=== PATIENT | male | born 1930 | race Caucasian/White ===

== ENCOUNTER 2016-09-16 11:55 | Inpatient (IN) | payer OTHER, MEDICARE ==
[~2016-09-16] VITALS: Ht 170.2 cm; Wt 96.2 kg
[~2016-09-16 11:55] MED LIST: ALLOPURINOL300 MG PO; ALPRAZOLAM1 MG PO; ATORVASTATIN CA20 MG PO; CIPRO250 M1 PO; COLCHICINE0.6 MG PO; COUMADIN 5 MG TA5 MG PO; DIAZEPAM5 M1 PO; FLAGYL500 MG PO; ISOSORBIDE MONO60 M1 PO; LASIX20 MG PO; LISINOPRIL10 MG PO; METOPROLOL SUC100 MG PO; NORCO 325 MG-51 TAB PO; PAROXETINE20 MG PO; PREDNISONE 10MG10 M1 PO; PREDNISONE10 MG PO; PREDNISONE5 MG PO; SENOKOT S 50 MG1 TAB PO; WARFARIN SODIUM5 MG PO
--- NOTE | 2016-09-16 12:06 | NUR ---
PT TO ED WITH DAUGHTER FOR C/O ABD PAIN, POOR PO INTAKE, WEIGHT LOSS OVER THE PAST FEW WEEKS. PT WAS SEEN IN ED IN AUGUST AND FOUND TO HAVE DIVERTICULITIS, SENT HOME WITH PO ABX. PT HAS NOT BEEN FEELING WELL SINCE STARTING ABX IN AUGUST. PT TAKEN VIA W/C TO A ROOM.
--- NOTE | 2016-09-16 12:06 | NUR ---
BP 70/40 IN TRIAGE.
--- NOTE | 2016-09-16 12:18 | NUR ---
PT IN ROOM 8. ALERT,ORIENTED. PER DAUGHTER VOMITTING,DIARRHEA. DX OF DIVERTICULITIS RECENTLY. ONGOING ABD PAIN.
--- NOTE | 2016-09-16 12:19 | NUR ---
MONITOR SR. EKG DONE. DR REYES IN.
--- NOTE | 2016-09-16 12:23 | ED GENERAL ADULT ---
History of Present Illness General Chief Complaint: General Adult Stated Complaint: UPSET STOMACH Source: patient, family, old records Exam Limitations: no limitations Vital Signs & Intake/Output Vital Signs & Intake/Output Vital Signs Date Time Temp Pulse Resp B/P Pulse O2 O2 Flow FiO2 Ox Delivery Rate 09/17 1555 98.4 97 18 160/74 92 Room Air 09/17 0940 98.4 83 20 131/62 09/17 0940 98.4 83 20 131/62 09/17 0937 98.4 83 20 131/62 09/17 0821 98.4 83 20 131/62 93 Room Air 09/16 2254 81 140/70 09/16 2254 81 140/70 09/16 2246 98.4 81 18 140/70 95 Room Air 09/16 1950 97.7 83 18 152/80 94 ED Intake and Output 09/17 0000 09/16 1200 Intake Total 2270 Output Total 300 Balance 1970 Intake, IV 2150 Intake, Oral 120 Output, Urine 300 Patient 220 lb Weight Allergies Coded Allergies: NO KNOWN ALLERGIES (12/22/14) Reconcile Medications Allopurinol 300 MG TAB 1 TAB PO DAILY GOUT (Reported) Atorvastatin Calcium (Lipitor) 20 MG TABLET 1 TAB PO DAILY CHOLESTEROL ( Reported) Diazepam 5 MG TABLET 1 TAB PO 4 TIMES/DAY SPASM (Reported) Furosemide (Lasix) 20 MG TABLET 1 TAB PO EOD FLUID (Reported) stop taking now and resume taking on 10/18/14 Isosorbide Mononitrate (Isosorbide Mononitrate ER) 60 MG TAB.ER.24H 1 TAB PO DAILY CHEST PAIN (Reported) Isosorbide Mononitrate (Isosorbide Mononitrate ER) 60 MG TAB.ER.24H 1 TAB PO QPM HEART (Reported) Lisinopril 10 MG TABLET 10 MG PO DAILY HTN (Reported) Metoprolol Succinate 100 MG TAB.ER.24H 50 MG PO DAILY HTN (Reported) PAROXETINE HCL (Paroxetine) 20 MG TABLET 20 MG PO DAILY ANXIETY (Reported) Triage Note: PT TO ED WITH DAUGHTER FOR C/O ABD PAIN, POOR PO INTAKE, WEIGHT LOSS OVER THE PAST FEW WEEKS. PT WAS SEEN IN ED IN AUGUST AND FOUND TO HAVE DIVERTICULITIS, SENT HOME WITH PO ABX. PT HAS NOT BEEN FEELING WELL SINCE STARTING ABX IN AUGUST. PT TAKEN VIA W/C TO A ROOM. Triage Nurses Notes Reviewed? yes Onset: Just prior to arrival Duration: day(s): (FEW) Timing: recent history Injury Environment: home Severity: moderate No Modifying Factors: none Associated Symptoms: POOR APPETITE, LETHARGY, COUGH, PHLEGM, CYANOTIC TOES HPI: This is a very pleasant 86-year-old woman who presents from home with his daughter for chief complaint of poor appetite for the past few days, weakness, lethargy, some diarrhea after a course of antibiotics for diverticulitis. Patient was seen here on August 23 and had a CAT scan done. He reports significant weight loss in the last few days. He denies any vomiting but has been a little bit nauseous. He also reports some productive cough with yellow phlegm for the past 2 days. He denies any fever or chills. He denies feeling short of breath. No recent falls. The daughter states that his extremities of left bluish and his feet have been cold. Past History Travel History Traveled to [place] past 21 day No Medical History Any Pertinent Medical History? see below for history Neurological: TIA EENT: NONE Cardiovascular: WA, TRIPLE BYPASS, TIA CHF, CIRCUMFLEX CLOGGED ARTERY, HTN Respiratory: NONE Gastrointestinal: diverticulitis Hepatic: NONE Renal: NONE Musculoskeletal: osteoarthritis Psychiatric: NONE Endocrine: NONE Blood Disorders: NONE Cancer(s): NONE DAIRY CHEMIST/Reproductive: NONE History of MRSA: No History of VRE: No History of CDIFF: No Surgical History Surgical History: CABG (1985 X 3) Psychosocial History Who do you live with Patient/Self Services at Home None What is your primary language [place]alander Tobacco Use: Quit >30 days ago ETOH Use: denies use Illicit Drug Use: denies illicit drug use Family History Family History, If Any: FATHER FH: CAD (coronary artery disease) Hx Contributory? No Review of Systems Review of Systems Constitutional: Reports: malaise, weakness. Denies: chills, fever. EENTM: Reports: no symptoms. Respiratory: Reports: cough, sputum production (YELLOW). Denies: orthopnea, short of breath. Cardiovascular: Denies: chest pain, palpitations. GI: Reports: constipation. Denies: abdominal pain. Genitourinary: Denies: discharge, dysuria. Musculoskeletal: Reports: no symptoms. Skin: Reports: no symptoms. Neurological/Psychological: Denies: confusion. Hematologic/Endocrine: Denies: bruising, bleeding, polyuria, polydipsia. Immunologic/Allergic: Denies: splenectomy. All Other Systems: Reviewed and Negative Physical Exam Physical Exam General Appearance: well developed/nourished, alert, awake, mild distress Head: atraumatic, normal appearance Eyes: Bilateral: normal appearance, PERRL, EOMI, pale conjunctivae. Ears, Nose, Throat: normal pharynx, normal ENT inspection, hearing grossly normal Neck: normal inspection, supple, full range of motion Respiratory: normal breath sounds, chest non-tender, no respiratory distress Cardiovascular: regular rate/rhythm Peripheral Pulses: 1+ radial (R), 1+ radial (L) Gastrointestinal: normal bowel sounds, soft, non-tender Back: normal inspection, normal range of motion Extremities: normal inspection, normal range of motion, pedal edema (TRACE BILATERALLY) Neurologic/Psych: no motor/sensory deficits, awake, alert, oriented x 3 Skin: cyanosis (TOES), pallor Core Measures ACS in differential dx? No CVA/TIA Diagnosis: No Severe Sepsis Present: Yes BC x2: Yes Lactic Acid x2: Yes IV ABX Broad Spectrum: Yes NS/LR Started: Yes Septic Shock Present: Yes Progress Differential Diagnoses I considered the following diagnoses in my evaluation of the patient: [RENAL FAILURE, DEHYDRATION, STAS, PNEUMONIA, SEPSIS, BACTEREMIA, C.DIFF] Plan of Care: Orders Procedure Date/time Status Heart Healthy Diet 09/17 B Active LOWER RESPIRATORY CULTURE 09/17 1456 Active MAGNESIUM 09/17 0600 Complete CBC WITHOUT DIFFERENTIAL 09/17 0600 Complete BASIC ELECTROLYTES PLUS BUN&CR 09/17 0600 Complete TROPONIN LEVEL 09/17 0000 Complete Therapeutic Exercise 09/17 UNK Complete PT Eval 09/17 UNK Complete Gait Training 09/17 UNK Complete PT Evaluate & Treat 09/16 2141 Active Saline Lock 09/16 2140 Active Pathway - chart 09/16 2140 Active House Staff 09/16 214 Active EKG 09/16 2140 Active Code Status 09/16 2140 Active Teach/Educate 09/16 1956 Active Nutritional Intake, Monitor 09/16 1956 Active Isolation 09/16 1956 Active Intake & Output 09/16 1956 Active Patient Care Conference 09/16 1956 Active Activity/Ambulation 09/16 1956 Active Patient Data 09/16 1713 Active Code Status 09/16 1706 Complete Admit to inpatient 09/16 1703 Active Vital Signs 09/16 1703 Active Intake & Output 09/16 1355 Active VTE Mechanical Prophylaxis 09/16 UNK Active Vital Signs 09/16 UNK Complete Intake & Output 09/16 UNK Complete Current Medications Sig/Sherrill Start time Last Medication Dose Stop Time Status Admin Furosemide 20 MG Q48 09/19 1000 AC (Lasix) Atorvastatin Calcium 20 MG 1700 09/17 1700 AC (Lipitor) Azithromycin 500 MG ONCE ONE 09/16 1700 CAN (Zithromax) 09/16 1759 Sodium Chloride 250 ML (Normal Saline 0.9%) Ceftriaxone Sodium 1,000 MG ONCE ONE 09/16 1700 CAN (Rocephin) 09/16 1701 Laboratory Tests 09/17/16 0600: Magnesium Cancelled 09/17/16 0600: Anion Gap 12, Estimated GFR > 60, BUN/Creatinine Ratio 10.0, Magnesium 1.8, CBC w Diff MAN DIFF ORDERED, RBC 3.12 L, MCV 91.7, MCH 30.7, RDW 15.1 H, MPV 9.9, Gran % 27.9 L, Lymphocytes % 30.5, Monocytes % 33.7 H, Eosinophils % 7.2 H, Basophils % 0.7, Absolute Granulocytes 1.2 L, Segmented Neutrophils 31 L, Absolute Lymphocytes 1.3, Lymphocytes 31, Monocytes 27 H, Absolute Monocytes 1.4 H, Eosinophils 8 H, Absolute Eosinophils 0.3, Absolute Basophils 0, Metamyelocytes 2 H, Myelocytes 1 H, Platelet Estimate VERIFIED BY SMEAR, Normocytic RBCs VERIFIED, Normochromic RBCs VERIFIED, PUBS MCHC 33.5 09/17/16 0020: Troponin I 0.02 09/16/16 1803: Urinalysis LIGHT H, Urine Color YEL, Urine Clarity HAZY H, Urine pH 6.0, Ur Specific [place] <= 1.005, Urine Protein NEG, Urine Ketones NEG, Urine Nitrite NEG, Urine Bilirubin NEG, Urine Urobilinogen 1.0, Ur Leukocyte Esterase NEG, Ur Microscopic SEDIMENT EXAMINED, Urine RBC FEW H, Urine WBC RARE, Urine Hemoglobin TRACE-INTACT H, Urine Glucose NEG Microbiology 09/17 UNK LOWER RESP: Respiratory Culture - RECD 09/17 UNK LOWER RESP: Gram Stain - RECD 09/16 2145 LOWER RESP: Respiratory Culture - CAN Cancelled: NO SPUTUM COLLLECTED FOR MICRO DEPT 09/16 2145 LOWER RESP: Gram Stain - CAN Cancelled: NO SPUTUM COLLLECTED FOR MICRO DEPT EKG, TELE MONITOR, NS BOLUS X 2 ORDERED, LABS, CULTUERS, LACTIC ACID. CXR ORDERED. IMPROVED PRESSURE AFTER FIRST LITRE. CT ABD/PELVIS PENDING. (AMY THOMAS,ROSALBA) Diagnostic Imaging: Viewed by Me: Radiology Read, CT Scan. Discussed w/RAD: Radiology Read, CT Scan. Radiology Impression: PATIENT: YARELI SONG PRESENT AGE: 86 PATIENT ACCOUNT NO: [id number] : 31 LOCATION: [facility] ORDERING PHYSICIAN: ROSALBA REYES MD SERVICE DATE: 09/16/16 EXAM TYPE: CAT - CT ABD & PELVIS W IV CONTRAST EXAMINATION: CT ABDOMEN AND PELVIS WITH CONTRAST CLINICAL INFORMATION: Diarrhea. Abdominal pain. Recent antibiotic treatment for diverticulitis. COMPARISON: CT abdomen and pelvis without contrast 08/23/2016. TECHNIQUE: Multidetector volumetric imaging was performed of the abdomen and pelvis before and after the IV administration of 95 mL of Optiray 320 intravenous contrast. Sagittal and coronal reformatted images were obtained on the technologist's workstation. DLP: 652 mGy-cm. FINDINGS: LUNG BASES: Bibasilar infiltrates. No pleural or pericardial effusions. Scattered coronary artery calcifications. LIVER, GALLBLADDER, AND BILIARY TREE: The liver is normal in size, shape, and attenuation. No focal hepatic lesion or biliary ductal dilatation is present. The gallbladder is unremarkable with no evidence of radiopaque gallstones, gallbladder wall thickening, or obvious pericholecystic inflammatory changes. PANCREAS: Unremarkable. SPLEEN: Unremarkable. 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 The right adrenal gland appears unremarkable. KIDNEYS AND URETERS: Evaluation of the bilateral kidneys and renal collecting systems is again notable for multiple right-sided simple renal cortical cysts, visualized measuring up to 3.4 x 3.6 cm within the lower pole of the right kidney. No renal or ureteral stones are identified and there is no hydroureteronephrosis of either kidney or renal collecting system. There is mild bilateral perinephric stranding. BLADDER: Unremarkable. GASTROINTESTINAL TRACT: Evaluation of the gastrointestinal system is again notable for scattered colonic diverticulosis, most significant along the descending and rectosigmoid colon. In comparison to the prior examination, there has been interval resolution of acute inflammatory changes along the cecum, corresponding to the patient's recent sigmoid diverticulitis. 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 There is no visible twisting of the mesentery to suggest obstruction. Abdominal and pelvic bowel loops are normal in caliber, without findings indicative of obstruction or ileus. No organizing intra-abdominal or pelvic fluid collections are identified and there is no free intraperitoneal air. ABDOMINAL WALL: No significant hernia is appreciated. LYMPH NODES: No significant abdominal or pelvic adenopathy. VASCULAR: Extensive atherosclerosis of the abdominal aorta and its branching vessels, without aneurysmal dilatation. The abdominal vasculature appears to be grossly patent. PELVIC VISCERA: Unremarkable. OSSEOUS STRUCTURES: No acute osseous abnormality. Demineralization of the visualized bones. Moderate to severe multilevel degenerative changes of the imaged thoracolumbar spine. IMPRESSION: 1. No acute findings within the abdomen or pelvis to explain patient symptomatology. Interval resolution of previously noted acute sigmoid diverticulitis. 2. 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 3. Patchy infiltrates within the bilateral lung bases. This finding is nonspecific and could reflect atelectasis although superimposed infection cannot be excluded in the upper clinical setting. DICTATED BY: ROBBIE DE LEÓN MD DATE/TIME DICTATED:09/16/161613 CASH POSTING SPECIALIST:BERT DATE/TIME TRANSCRIBED:09/16/161613 CONFIDENTIAL, DO NOT COPY WITHOUT APPROPRIATE AUTHORIZATION. <Electronically signed in Other Vendor System> SIGNED BY: ROBBIE DE LEÓN MD 09/16/168 CXR Impression: PATIENT: YARELI SONG PRESENT AGE: 86 PATIENT ACCOUNT NO: [id number] : 31 LOCATION: [facility] ORDERING PHYSICIAN: ROSALBA REYES MD SERVICE DATE: 09/16/16 EXAM TYPE: RAD - XRY -PORTABLE CHEST XRAY EXAMINATION: XR PORTABLE CHEST CLINICAL INFORMATION: Cough. Reported yellow sputum. COMPARISON: Chest radiograph done on 01/09/2015. TECHNIQUE: AP erect portable 75 degrees view of the chest. FINDINGS: Subtle airspace opacity is noted at left lung base, appear new since prior study. Subtle blunting of the left lateral CP angle is also noted, may represent trace effusion, new since prior study. The remainder of the lung isabel bilaterally appear clear. The cardiomediastinal silhouette is mildly enlarged, unchanged. Postop changes of sternotomy is noted, unchanged. The visualized upper abdomen is unremarkable. IMPRESSION: Compared to most recent prior available chest radiograph done on 01/09/2015, interval development of subtle airspace opacity is noted at left lung base consistent with infiltrate, atelectasis or combination thereof, with minimal blunting of left lateral CP angle, presumably represent trace amount of ipsilateral pleural effusion. No other significant change. DICTATED BY: DARYA VERAS MD DATE/TIME DICTATED:09/16/161328 CASH POSTING SPECIALIST:BERT DATE/TIME TRANSCRIBED:09/16/161328 CONFIDENTIAL, DO NOT COPY WITHOUT APPROPRIATE AUTHORIZATION. <Electronically signed in Other Vendor System> SIGNED BY: DARYA VERAS MD 09/16/16 1335 Initial ED EKG: NSR, nonspecific ST T wave chg Prior EKG: unchanged ED Sepsis Exam Date of Focused Sepsis Exam: 09/16/16 Time of Focused Sepsis Exam: 1225 Sepsis Cardiac Exam: Tachycardia Sepsis Resp Exam: DIMINISHED BREATH SOUNDS Sepsis Cap Refill Exam: >2 sec Sepsis Peripheral Pulse Exam: Weak Sepsis Peripheral Pulse Location: Radial Sepsis Skin Color Exam: Cyanotic, Pale Skin Temp/Moisture Exam: Cool/Dry Departure Departure Time of Disposition: 1652 Disposition: STILL A PATIENT Condition: Stable Clinical Impression Primary Impression: Hyponatremia Secondary Impressions: Hypotension, Pneumonia Referrals: SALLY BERRIOS MD (PCP/Family) Departure Forms: Customer Survey General Discharge Information Admission Note Spoke With: STEF TROY MD Documentation of Exam: Documentation of any treatments & extenuating circumstances including Concerns Regarding Discharge (functional status, medication knowledge or non-compliance, living conditions, etc.) that warrant an admission rather than observation: [IV ABX, FLUID RESUSSCITATION, F/U CULTURES, MONITOR I/O, F/U LACTIC ACID] Critical Care Note Critical Care Note Critical Care Time: 75-104 min
--- NOTE | 2016-09-16 12:40 | NUR ---
BLOOD DRAWN AND SENT TO THE LAB (SST,LAV,BLUE,[facility],PINK)
[2016-09-16 12:50] LABS: ABSOLUTE BASOPHIL COUNT 0 /CUMM (0.0-0.2); ABSOLUTE EOSINOPHIL COUNT 0.4 /CUMM (0.0-0.7); ABSOLUTE GRANULOCYTE CT 1.8 /CUMM (1.4-6.5); ABSOLUTE LYMPH COUNT 1.8 /CUMM (1.2-3.4); ABSOLUTE MONOCYTE COUNT 1.5 /CUMM (0.10-0.60); BASOPHIL % 0.6 % (0.0-2.0); HEMATOCRIT 31.3 % (42-52); MEAN CORPUSCULAR HGB 30.2 PG (27.0-31.0); MEAN CORPUSCULAR VOLUME 91.3 FL (80.0-94.0); MEAN PLATELET VOLUME 9.9 FL (7.4-10.4); PLATELET COUNT 192 /CUMM (130-400); RBC DISTRIBUTION WIDTH 15.7 % (11.5-14.5); RED BLOOD CELL CT 3.42 /CUMM (4.70-6.10); WHITE BLOOD CELL COUNT 5.6 /CUMM (4.8-10.8)
[2016-09-16 13:02] LABS: GRANULOCYTE % 32.1 % (42.2-75.2)
[2016-09-16 13:09] LABS: PT 14.8 SEC (9.4-12.5); PTT 32 SEC (25-37)
--- NOTE | 2016-09-16 13:19 | NUR ---
CRITICAL TEST RESULTS [id number] YARELI SONG 86 M TESTS AND RESULTS: LACTIC ACID 2.5 Results received and read back by: CANDY BRUCE Results received date and time: 09/16/16 1320 The following provider was notified of the results, and read the results back: DR REYES [id number] Notified date and time: 09/16/16 at 1322 REPORTED BY WM IN LAB
--- NOTE | 2016-09-16 13:35 | RADIOLOGY REPORT ---
EXAMINATION: XR PORTABLE CHEST CLINICAL INFORMATION: Cough. Reported yellow sputum. COMPARISON: Chest radiograph done on 01/09/2015. TECHNIQUE: AP erect portable 75 degrees view of the chest. FINDINGS: Subtle airspace opacity is noted at left lung base, appear new since prior study. Subtle blunting of the left lateral CP angle is also noted, may represent trace effusion, new since prior study. The remainder of the lung isabel bilaterally appear clear. The cardiomediastinal silhouette is mildly enlarged, unchanged. Postop changes of sternotomy is noted, unchanged. The visualized upper abdomen is unremarkable. IMPRESSION: Compared to most recent prior available chest radiograph done on 01/09/2015, interval development of subtle airspace opacity is noted at left lung base consistent with infiltrate, atelectasis or combination thereof, with minimal blunting of left lateral CP angle, presumably represent trace amount of ipsilateral pleural effusion. No other significant change.
[2016-09-16] MEDS ORDERED: ISOSORBIDE MONO60 M1 PO (14:11)
[2016-09-16] MEDS ORDERED: HYDROCODON-ACE1 EAC3 PO (14:14)
--- NOTE | 2016-09-16 15:48 | NUR ---
TO CT VIA STRETCHER AFTER IV EST
--- NOTE | 2016-09-16 15:50 | NUR ---
IV EST #20 TO RFA. BUTLER TOP AND BOTH SET OF CULTURES SENT.
--- NOTE | 2016-09-16 15:51 | NUR ---
PT TO CAT SCAN VIA STRETCHER.
--- NOTE | 2016-09-16 16:28 | CT SCAN REPORT ---
EXAMINATION: CT ABDOMEN AND PELVIS WITH CONTRAST CLINICAL INFORMATION: Diarrhea. Abdominal pain. Recent antibiotic treatment for diverticulitis. COMPARISON: CT abdomen and pelvis without contrast 08/23/2016. TECHNIQUE: Multidetector volumetric imaging was performed of the abdomen and pelvis before and after the IV administration of 95 mL of Optiray 320 intravenous contrast. Sagittal and coronal reformatted images were obtained on the technologist's workstation. DLP: 652 mGy-cm. FINDINGS: LUNG BASES: Bibasilar infiltrates. No pleural or pericardial effusions. Scattered coronary artery calcifications. LIVER, GALLBLADDER, AND BILIARY TREE: The liver is normal in size, shape, and attenuation. No focal hepatic lesion or biliary ductal dilatation is present. The gallbladder is unremarkable with no evidence of radiopaque gallstones, gallbladder wall thickening, or obvious pericholecystic inflammatory changes. PANCREAS: Unremarkable. SPLEEN: Unremarkable. 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 The right adrenal gland appears unremarkable. KIDNEYS AND URETERS: Evaluation of the bilateral kidneys and renal collecting systems is again notable for multiple right-sided simple renal cortical cysts, visualized measuring up to 3.4 x 3.6 cm within the lower pole of the right kidney. No renal or ureteral stones are identified and there is no hydroureteronephrosis of either kidney or renal collecting system. There is mild bilateral perinephric stranding. BLADDER: Unremarkable. GASTROINTESTINAL TRACT: Evaluation of the gastrointestinal system is again notable for scattered colonic diverticulosis, most significant along the descending and rectosigmoid colon. In comparison to the prior examination, there has been interval resolution of acute inflammatory changes along the cecum, corresponding to the patient's recent sigmoid diverticulitis. 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 There is no visible twisting of the mesentery to suggest obstruction. Abdominal and pelvic bowel loops are normal in caliber, without findings indicative of obstruction or ileus. No organizing intra-abdominal or pelvic fluid collections are identified and there is no free intraperitoneal air. ABDOMINAL WALL: No significant hernia is appreciated. LYMPH NODES: No significant abdominal or pelvic adenopathy. VASCULAR: Extensive atherosclerosis of the abdominal aorta and its branching vessels, without aneurysmal dilatation. The abdominal vasculature appears to be grossly patent. PELVIC VISCERA: Unremarkable. OSSEOUS STRUCTURES: No acute osseous abnormality. Demineralization of the visualized bones. Moderate to severe multilevel degenerative changes of the imaged thoracolumbar spine. IMPRESSION: 1. No acute findings within the abdomen or pelvis to explain patient symptomatology. Interval resolution of previously noted acute sigmoid diverticulitis. 2. 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 3. Patchy infiltrates within the bilateral lung bases. This finding is nonspecific and could reflect atelectasis although superimposed infection cannot be excluded in the upper clinical setting.
--- NOTE | 2016-09-16 16:49 | NUR ---
UNABLE TO PROVIDE URINE SAMPLE AT THIS TIME.
--- NOTE | 2016-09-16 17:15 | NUR ---
RE-EVAL BY ER TBA BLADDER SCAN DONE = [id number] PATIENT STATES STILL CAN'T VOID DOES NOT WANT STRAIGHT CATH AWaRE
--- NOTE | 2016-09-16 18:00 | NUR ---
pt has bed assignment 180-2. rn notified.
--- NOTE | 2016-09-16 18:05 | NUR ---
URINE TRIO SENT TO THE LAB
--- NOTE | 2016-09-16 19:01 | NUR ---
REPORT GIVEN TO FLOOR
--- NOTE | 2016-09-16 19:27 | NUR ---
PATIENT REMAINS ALERT ORIENTED MONITOR NSR SKIN WARM DRY TEMP 97.8 HR 80 RR 20 PULSE OX 97% R/A B/P 144/82 VANCOMYCIN INFUSING
[2016-09-16 19:50] VITALS: BP 152/80
--- NOTE | 2016-09-16 22:00 | NUR ---
PT ARRIVED FROM ER VIA STRETCHER. ORIENTED TO ROOM CALL FERRELL AND STAFF. VSS. ALERT AND ORIENTED X 3, FORGETFUL. SKIN CDI. SLIGHT SWELLING AND REDNESS ON RIGHT HAND, IV PULLED. 2ND ACCESS IN RFA, NS ORDERED AT 75 ML/HR. VANCO FINISHED INFUSING. EKG ORDERED AND OBTAINED, MD BRAND REVIEWED EKG. NNO.
[2016-09-16 22:46] VITALS: BP 140/70
--- NOTE | 2016-09-17 00:44 | History & Physical ---
DORIS JIM 09/17/16 0043: General Information and HPI MD Statement: I have seen and personally examined YARELI SONG and documented this H& P. The patient is a 86 year old M who presented with a patient stated chief complaint of []. Source of Information: patient, old records Exam Limitations: no limitations History of Present Illness: This is a 86-year-old male with past medical history of TIA, CABG, congestive heart failure gout, osteoarthritis, bilateral foot neuroma. Presented to the emergency department due to poor appetite for the past few days, weakness, lethargy and diarrhea. According to his daughter these symptoms started after he was started on antibiotic for his sigmoid diverticulitis that was diagnosed on August 2016 in the emergency department. She stated that since he was started on antibiotic is nausea, diarrhea and low appetite that is associated with around 20 pound weight loss and decreased ambulation. His daughter stated that his primary care doctor hold his Flagyl and the patient continue total course of ciprofloxacin. Patient also reports productive cough of yellowish sputum, he deny any fever, chills him a difficulty in breathing. Patient deny any abdominal pain, constipation, vomiting, headaches, dizziness, lightheaded, hematuria, dysuria,. In ED patient received IV vancomycin and ceftazidime. His labs showed hyponatremia, hypomagnesemia , initial lactic acid 2.[address] scan of the abdomen and pelvis showed bilateral basal lung infiltrate that could be atelectasis versus pneumonia. Previous admission to the hospital 2014 due to fall and fracture. Allergies/Medications Allergies: Coded Allergies: NO KNOWN ALLERGIES (12/22/14) Home Med list Allopurinol 300 MG TAB 1 TAB PO DAILY GOUT (Reported) Atorvastatin Calcium (Lipitor) 20 MG TABLET 1 TAB PO DAILY CHOLESTEROL ( Reported) Diazepam 5 MG TABLET 1 TAB PO 4 TIMES/DAY SPASM (Reported) Furosemide (Lasix) 20 MG TABLET 1 TAB PO EOD FLUID (Reported) stop taking now and resume taking on 10/18/14 Isosorbide Mononitrate (Isosorbide Mononitrate ER) 60 MG TAB.ER.24H 1 TAB PO DAILY CHEST PAIN (Reported) Isosorbide Mononitrate (Isosorbide Mononitrate ER) 60 MG TAB.ER.24H 1 TAB PO QPM HEART (Reported) Lisinopril 10 MG TABLET 10 MG PO DAILY HTN (Reported) Metoprolol Succinate 100 MG TAB.ER.24H 50 MG PO DAILY HTN (Reported) PAROXETINE HCL (Paroxetine) 20 MG TABLET 20 MG PO DAILY ANXIETY (Reported) Past History Travel History Traveled to [place] past 21 day No Medical History Neurological: TIA EENT: NONE Cardiovascular: MA, TRIPLE BYPASS, TIA CHF, CIRCUMFLEX CLOGGED ARTERY, HTN Respiratory: NONE Gastrointestinal: diverticulitis Hepatic: NONE Renal: NONE Musculoskeletal: osteoarthritis Psychiatric: NONE Endocrine: NONE Blood Disorders: NONE Cancer(s): NONE CAR 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 Cardiovascular: Reports: see HPI. Respiratory: Reports: see HPI. GI: Reports: see HPI. Genitourinary: Reports: see HPI. Exam & Diagnostic Data Last 24 Hrs of Vital Signs/I&O Vital Signs Date Time Temp Pulse Resp B/P Pulse O2 O2 Flow FiO2 Ox Delivery Rate 09/16 2254 81 140/70 09/16 2254 81 140/70 09/16 2246 98.4 81 18 140/70 95 Room Air 09/16 1950 97.7 83 18 152/80 94 09/16 1635 97.8 84 159/75 98 09/16 1424 98.0 76 20 148/70 98 Room Air 09/16 1203 97.6 83 20 70/41 95 Room Air Intake & Output 09/17 0800 09/17 0000 09/16 1600 Intake Total 270 2000 Output Total 300 Balance -30 2000 Intake, IV 150 2000 Intake, Oral 120 Output, Urine 300 Patient 220 lb 220 lb Weight Physical Exam General Appearance Alert, Oriented X3, Cooperative HEENT PERRLA, EOMI Neck Supple Cardiovascular Regular Rate, Normal S1, Normal S2 Lungs Normal Air Movement Abdomen Normal Bowel Sounds, Soft, No Tenderness Extremities No Edema, Normal Pulses Last 24 Hrs of Labs/Onesimo: Laboratory Tests 09/17/16 0020: Troponin I 0.02 09/16/16 1803: Urinalysis LIGHT H, Urine Color YEL, Urine Clarity HAZY H, Urine pH 6.0, Ur Specific [place] <= 1.005, Urine Protein NEG, Urine Ketones NEG, Urine Nitrite NEG, Urine Bilirubin NEG, Urine Urobilinogen 1.0, Ur Leukocyte Esterase NEG, Ur Microscopic SEDIMENT EXAMINED, Urine RBC FEW H, Urine WBC RARE, Urine Hemoglobin TRACE-INTACT H, Urine Glucose NEG 09/16/16 1527: Lactic Acid 1.1 09/16/16 1237: Anion Gap 14, Estimated GFR > 60, BUN/Creatinine Ratio 9.1, Glucose 104 H, Lactic Acid 2.5 H, Calcium 8.5, Magnesium 1.5 L, Total Bilirubin 1.6 H, AST 13 L, ALT 22, Alkaline Phosphatase 81, Troponin I 0.03, Total Protein 5.9 L, Albumin 3.2 L, Globulin 2.7, Albumin/Globulin Ratio 1.2, Lipase 31, PT 14.8 H, INR 1.41 H, APTT 32 09/16/16 1222: CBC w Diff MAN DIFF ORDERED, RBC 3.42 L, MCV 91.3, MCH 30.2, RDW 15.7 H, MPV 9.9, Gran % 32.1 L, Lymphocytes % 31.5, Monocytes % 27.8 H, Eosinophils % 8.0 H, Basophils % 0.6, Absolute Granulocytes 1.8, Segmented Neutrophils 39 L, Band Neutrophils 1, Absolute Lymphocytes 1.8, Lymphocytes 33, Monocytes 20 H, Absolute Monocytes 1.5 H, Eosinophils 7 H, Absolute Eosinophils 0.4, Absolute Basophils 0, Platelet Estimate ADEQUATE, Hypochromic-Microcytic 1+, Poikilocytosis 1+, Anisocytosis 1+, PUBS MCHC 33.0 Microbiology 09/16 2145 LOWER RESP: Respiratory Culture - ORD 09/16 2145 LOWER RESP: Gram Stain - ORD 09/16 1540 BLOOD: Blood Culture - RECD 09/16 152 BLOOD: Blood Culture - RECD 09/16 1237 STOOL: Clostridium difficile Toxin A & B - RECD Diagnostic Data CXR Results EXAMINATION: XR PORTABLE CHEST CLINICAL INFORMATION: Cough. Reported yellow sputum. COMPARISON: Chest radiograph done on 01/09/2015. TECHNIQUE: AP erect portable 75 degrees view of the chest. FINDINGS: Subtle airspace opacity is noted at left lung base, appear new since prior study. Subtle blunting of the left lateral CP angle is also noted, may represent trace effusion, new since prior study. The remainder of the lung isabel bilaterally appear clear. The cardiomediastinal silhouette is mildly enlarged, unchanged. Postop changes of sternotomy is noted, unchanged. The visualized upper abdomen is unremarkable. IMPRESSION: Compared to most recent prior available chest radiograph done on 01/09/2015, interval development of subtle airspace opacity is noted at left lung base consistent with infiltrate, atelectasis or combination thereof, with minimal blunting of left lateral CP angle, presumably represent trace amount of ipsilateral pleural effusion. No other significant change. Other Results EXAM TYPE: CAT - CT ABD & PELVIS W IV CONTRAST EXAMINATION: CT ABDOMEN AND PELVIS WITH CONTRAST CLINICAL INFORMATION: Diarrhea. Abdominal pain. Recent antibiotic treatment for diverticulitis. COMPARISON: CT abdomen and pelvis without contrast 08/23/2016. TECHNIQUE: Multidetector volumetric imaging was performed of the abdomen and pelvis before and after the IV administration of 95 mL of Optiray 320 intravenous contrast. Sagittal and coronal reformatted images were obtained on the technologist's workstation. DLP: 652 mGy-cm. FINDINGS: LUNG BASES: Bibasilar infiltrates. No pleural or pericardial effusions. Scattered coronary artery calcifications. LIVER, GALLBLADDER, AND BILIARY TREE: The liver is normal in size, shape, and attenuation. No focal hepatic lesion or biliary ductal dilatation is present. The gallbladder is unremarkable with no evidence of radiopaque gallstones, gallbladder wall thickening, or obvious pericholecystic inflammatory changes. PANCREAS: Unremarkable. SPLEEN: Unremarkable. 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 The right adrenal gland appears unremarkable. KIDNEYS AND URETERS: Evaluation of the bilateral kidneys and renal collecting systems is again notable for multiple right-sided simple renal cortical cysts, visualized measuring up to 3.4 x 3.6 cm within the lower pole of the right kidney. No renal or ureteral stones are identified and there is no hydroureteronephrosis of either kidney or renal collecting system. There is mild bilateral perinephric stranding. BLADDER: Unremarkable. GASTROINTESTINAL TRACT: Evaluation of the gastrointestinal system is again notable for scattered colonic diverticulosis, most significant along the descending and rectosigmoid colon. In comparison to the prior examination, there has been interval resolution of acute inflammatory changes along the cecum, corresponding to the patient's recent sigmoid diverticulitis. 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 There is no visible twisting of the mesentery to suggest obstruction. Abdominal and pelvic bowel loops are normal in caliber, without findings indicative of obstruction or ileus. No organizing intra-abdominal or pelvic fluid collections are identified and there is no free intraperitoneal air. ABDOMINAL WALL: No significant hernia is appreciated. LYMPH NODES: No significant abdominal or pelvic adenopathy. VASCULAR: Extensive atherosclerosis of the abdominal aorta and its branching vessels, without aneurysmal dilatation. The abdominal vasculature appears to be grossly patent. PELVIC VISCERA: Unremarkable. OSSEOUS STRUCTURES: No acute osseous abnormality. Demineralization of the visualized bones. Moderate to severe multilevel degenerative changes of the imaged thoracolumbar spine. IMPRESSION: 1. No acute findings within the abdomen or pelvis to explain patient symptomatology. Interval resolution of previously noted acute sigmoid diverticulitis. 2. 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 3. Patchy infiltrates within the bilateral lung bases. This finding is nonspecific and could reflect atelectasis although superimposed infection cannot be excluded in the upper clinical setting. Assessment/Plan Assessment: This is a 86-year-old male with past medical history of TIA, CABG, congestive heart failure gout, osteoarthritis, bilateral foot neuroma. Presented to the emergency department due to poor appetite for the past few days, weakness, lethargy and diarrhea. Problem list: -Generalized weakness -Diarrhea, weight loss, that could be secondary to C. difficile infection -Questionable pneumonia -Hyponatremia, hypomagnesemia secondary to diarrhea -Lactic acidosis -History of diverticulitis Plan: -Admit patient to general medicine floor -Vitals every shift -1 set of troponin and EKG -Hold off antibiotic for now -Follow C. difficile and blood culture -Repleat electrolytes accordingly -Continue IV fluid hydration -Continue his home medication -Physical therapy consultation -Repeat CBC and basic panel electrolyte in the morning -Pain pathway -Heart healthy diet -DVT prophylaxis subcutaneous heparin -Full code As Ranked By This Provider Problem List: 1. Hypotension 2. Hyponatremia Core Measures/Miscellaneous Acute Coronary Syndrome ACS Diagnosis: No Cerebrovascular Accident CVA/TIA Diagnosis: No Congestive Heart Failure CHF Diagnosis: No Venous Thromboembolism VTE Risk Factors: Acute medical illness, Age > 40, Immobility, paresis, Obesity VTE Prophylaxis Ordered Inpt: Mech & Pharm No Mech VTE prophylaxis d/t: No contraindications No VTE Pharm Prophylaxis d/t: No contraindications VTE Diagnosis: No VTE Type: NONE VTE Confirmed by (Test): NONE Severe Sepsis Severe Sepsis Present: No Septic Shock Septic Shock Present: No Miscellaneous Documentation Attending Case Discussed With: SYDNI THOMAS,FINCH [facility] Patient sees these Specialists GM Level of Patient Care: General Medicine ABBIE THOMAS, [facility] 09/17/16 0643: Attending MD Review Statement Attending Statement Attending MD Statement: examined this patient, discuss w/resident/PA/RADIOLOGY TRANSCRIPTIONIST, agreed w/resident/PA/RADIOLOGY TRANSCRIPTIONIST, discussed with family Attending Assessment/Plan: 86 yo M with h/o CAD s/p CABG, TIA, CHF, rosas's neuroma, recently treated with Cipro/flagyl for sigmoid diverticulitis (Aug 2015) pw weakness, poor PO intake, lethargy, weight loss and persistent diarrhea (last episode 2 days ago). He reports occasional productive cough, no fever or dyspnea. Initially hypotensive (70/41) in ER, responded to fluids. Vitals otherwise stable. No leukocytosis but has eosinophilia. Mag 1.5, elevated lactic acid. UA neg. CT abd/pelvis, nothing acute in abdomen, patchy infiltrates b/l lung bases ?atelectasis. ER gave Ceftaz /vanco for pneumonia. EKG showed few ST-T changes, troponin is negative. Lethargy, weakness 2/2 dehydration and poor PO intake, which is also attributing to his low BP. IV hydration. Given persistent diarrhea, I am checking for Cdiff. Panculture. He is not hypoxic and not febrile so holding off on abx for possible pneumonia unless he spikes fever, please initiate abx. Repleting electrolytes. Needs PT. DVT ppx Hep SC. Full code.
--- NOTE | 2016-09-17 06:35 | Admission Certification ---
Admission Certification Certification Statement - As attending physician, I certify that at the time of - admission, based on clinical presentation, severity of - symptoms, need for further diagnostic testing and - therapeutic interventions, and risk of adverse outcomes - without in-hospital treatment, in my clinical assessment, - this patient requires an acute hospital stay for a minimum - of two nights or longer. I have also considered psychsocial - factors such as support system, advanced age, financial - issues, cognitive issues, and failed out-patient treatments, - past re-admission history, safety of patient, and lack of - compliance as applicable. Specific rationale supporting this admission is: Weakness, lethargy, rule out Cdiff, possible pneumonia needs further evaluation and treatment.
--- NOTE | 2016-09-17 07:47 | PN- Housestaff ---
THUY SOLIS 09/17/16 0747: Subjective Follow-up For: -Lethargy,weakness -diarrhea s/p recent ax treatment Complaints: no complaints Subjective: I have seen and examined the patient today morning, he is lying comfortably in the bed, vitals stable, he does look a little dry, he hasn't had any episodes of diarrhea after admission in the emergency department as well as in last 2 days. He does feel lethargic and weak and states that it does not have any appetite and has not been eating anything since last 15-20 days as he does not feel like especially after getting treated with antibiotics for diverticulitis Review of Systems Constitutional: Reports: malaise, weakness. Denies: chills, diaphoresis, fever. EENTM: Denies: blurred vision, double vision, visual changes, eye pain, eye drainage. Cardiovascular: Denies: chest pain, edema, orthopena, palpitations. Respiratory: Denies: cough, hemoptysis, orthopnea, short of breath. Gastrointestinal: Reports: diarrhea, nausea. Denies: abdominal pain, bloating, constipation, distention, bowel incontinence, melena, bloody stool, changes in stool, vomiting. Genitourinary: Denies: discharge, dysuria, frequency. Musculoskeletal: Reports: no symptoms. Skin: Reports: no symptoms. Neurological/Psychological: Reports: no symptoms. Objective Last 24 Hrs of Vital Signs/I&O Vital Signs Date Time Temp Pulse Resp B/P Pulse O2 O2 Flow FiO2 Ox Delivery Rate 09/17 1944 99.3 09/17 1905 103.9 09/17 1555 98.4 97 18 160/74 92 Room Air 09/17 939 98.4 83 20 131/62 09/17 939 98.4 83 20 131/62 09/17 0937 98.4 83 20 131/62 09/17 0821 98.4 83 20 131/62 93 Room Air 09/16 2254 81 140/70 09/16 2254 81 140/70 09/16 2246 98.4 81 18 140/70 95 Room Air 09/16 1950 97.7 83 18 152/80 94 Intake & Output 09/17 1600 09/17 0800 09/17 0000 Intake Total 520 270 Output Total 500 500 300 Balance -500 20 -30 Intake, IV 400 150 Intake, Oral 120 120 Output, Urine 500 500 300 Patient 99.79 kg Weight Physical Exam General Appearance: Alert, Oriented X3, Cooperative, No Acute Distress Skin: No Rashes, No Breakdown, No Significant Lesion HEENT: Atraumatic, PERRLA, EOMI Cardiovascular: Normal S1, Normal S2, No Murmurs Lungs: Clear to Auscultation, Normal Air Movement Abdomen: Normal Bowel Sounds, Soft, No Tenderness Neurological: Strength at 5/5 X4 Ext, Normal Tone, Sensation Intact, Cranial Nerves 3-12 NL, Reflexes 2+ Extremities: No Clubbing, No Cyanosis, No Edema, Normal Pulses Vascular: Normal Pulses Current Medications: Current Medications Sig/Sherrill Start time Last Medication Dose Route Stop Time Status Admin Acetaminophen 650 MG ONCE ONE 09/17 1899 DC 09/17 PO 09/17 190 1905 Acetaminophen 650 MG Q6P PRN 09/16 2145 AC 09/16 PO 2253 Allopurinol 300 MG DAILY 09/17 1000 AC 09/17 PO 0942 Atorvastatin Calcium 20 MG 1700 09/17 1700 AC PO Calcium Carbonate 500 MG ONCE ONE 09/16 2245 DC 09/16 PO 09/16 2246 2253 Dextrose/Sodium 1,000 ML Q10H 09/16 1600 DC 09/16 Chloride IV 1947 Diazepam 5 MG 4 TIMES/DAY 09/16 2200 AC 09/17 PO 1440 Furosemide 20 MG Q48 09/19 1000 AC PO Furosemide 20 MG Q48 09/17 1000 DC PO Heparin Sodium 5,000 UNIT Q8 09/160 AC 09/17 (Porcine) SC 1443 Influenza Virus 0.5 ML ONCE ONE 09/16 2030 DC 09/17 Vaccine IM 09/16 2030 1124 Isosorbide 60 MG DAILY 09/17 1000 AC 09/17 Mononitrate PO 0937 Isosorbide 60 MG QPM 09/16 2199 AC 09/16 Mononitrate PO 2254 Lisinopril 10 MG DAILY 09/17 1000 AC 09/17 PO 0940 Magnesium Oxide 400 MG DAILY 09/17 1000 AC 09/17 PO 0938 Magnesium Sulfate 1 GM ONCE ONE 09/17 0015 DC 09/17 Dextrose/Water 100 ML IV 09/17 0414 0050 Metoprolol Succinate 50 MG DAILY 09/16 2199 AC 09/17 PO 0940 Paroxetine HCl 20 MG DAILY 09/17 1000 AC 09/17 PO 0939 Sodium Chloride 1,000 ML Q13H 09/16 2200 DC 09/16 IV 09/17 1059 2200 Last 24 Hrs of Lab/Onesimo Results Last 24 Hrs of Labs/Mics: Laboratory Tests 09/17/16 0600: Magnesium Cancelled 09/17/16 0600: Anion Gap 12, Estimated GFR > 60, BUN/Creatinine Ratio 10.0, Magnesium 1.8, CBC w Diff MAN DIFF ORDERED, RBC 3.12 L, MCV 91.7, MCH 30.7, RDW 15.1 H, MPV 9.9, Gran % 27.9 L, Lymphocytes % 30.5, Monocytes % 33.7 H, Eosinophils % 7.2 H, Basophils % 0.7, Absolute Granulocytes 1.2 L, Segmented Neutrophils 31 L, Absolute Lymphocytes 1.3, Lymphocytes 31, Monocytes 27 H, Absolute Monocytes 1.4 H, Eosinophils 8 H, Absolute Eosinophils 0.3, Absolute Basophils 0, Metamyelocytes 2 H, Myelocytes 1 H, Platelet Estimate VERIFIED BY SMEAR, Normocytic RBCs VERIFIED, Normochromic RBCs VERIFIED, PUBS MCHC 33.5 09/17/16 0020: Troponin I 0.02 Microbiology 09/17 1929 BLOOD: Blood Culture - RECD 09/17 1909 BLOOD: Blood Culture - RECD 09/17 UNK LOWER RESP: Respiratory Culture - RES 09/17 UNK LOWER RESP: Gram Stain - RES 09/16 2145 LOWER RESP: Respiratory Culture - CAN Cancelled: NO SPUTUM COLLLECTED FOR MICRO DEPT 09/16 2145 LOWER RESP: Gram Stain - CAN Cancelled: NO SPUTUM COLLLECTED FOR MICRO DEPT Lines/Diet/Fluids Restraints: none Assessment/Plan Assessment: This is a 86-year-old male with past medical history of TIA, CABG, congestive heart failure, gout, osteoarthritis, Do neuroma came into the emergency department last night that is night of 09/16/2016 with chief complain of weakness and lethargy and diarrhea along with complete loss of appetite after recent treatment with antibiotics for diverticulitis with ciprofloxacin and Flagyl. He is status post completion of the entire antibiotic course. In the emergency department he received 1 dose of IV ceftazidime and vancomycin. On admission he had low sodium, low magnesium, initial lactic acid was 2.5 which trended down to 1.1. CT scan of the abdominal and pelvis did not show anything significant or any acute changes other than bibasilar lung infiltrate which most likely would be secondary to atelectasis and looks less likely to be pneumonia. Problem list along with assessment and plan #1 weakness/lethargy/loss of appetite. Patient has poor by mouth intake. He is dehydrated and dry. Continue IV hydration. Continue to monitor vitals closely. We'll continue to encourage by mouth intake and by mouth fluids. #2 Recent history of significant diarrhea status post antibiotic treatment. We will check stool for C. difficile. Patient is not on any antibiotics currently, however if he did receive one time a ceftaz and Vanco. He remained afebrile overnight. He did have hypomagnesemia and hypokalemia which could be secondary to his diarrhea. We will continue to monitor electrolytes and continue to replete as necessary. #3 Bibasilar patchy infiltrates. Patient is afebrile, no white count, less likely to be pneumonia. Will continue treatment of antibiotics for now. #4 hyponatremia, hypomagnesemia, hypokalemia. This could be most likely is all secondary to diarrhea and dehydration. Mg was repeated and now within normal limits. continue to replete as necessary. continue IV hydration. Hyponatremia is most likely hypovolemic hypernatremia. DVT prophylaxis with subcutaneous illness heparin. Patient is full code PT evaluation placed. Continue regular diet. Problem List: 1. Hyponatremia 2. Hypotension 3. Diarrhea Pain Ratin Pain Location: na Pain Goal: Remain pain free Pain Plan: tylenol Tomorrow's Labs & Rationales: bep, cbc DVT/Prophylaxis: pharmacological IEMLDA THOMAS,[place]IE 09/17/16 1521: Attending MD Review Statement Attending Statement Attending MD Statement: examined this patient, discuss w/resident/PA/COMMERCIAL SALES SPECIALIST, agreed w/resident/PA/COMMERCIAL SALES SPECIALIST, reviewed EMR data (avail), discussed with nursing Attending Assessment/Plan: 86-year-old male past medical history of chronic heart failure, CAD, TIA who recently made an ED visit in August was diagnosed with acute diverticulitis and sent out on Cipro and Flagyl. He is here with complaints of weakness poor by mouth intake, weight loss and generally not feeling well since the antibiotics were started. He allegedly finished his course of antibiotics will have to clarify that. He had some diarrhea at home but hasn't had any since coming here. He had a CT with IV contrast which was nonrevealing. In fact showed resolution of the diverticulitis. At this point will get C. difficile to make sure they not doing with that. Will watch him off the antibiotics. I'm not convinced he has a pneumonia ,I think the CT findings suggest atelectasis. He is not coughing he is afebrile and doesn't have a white count
[2016-09-17 08:03] LABS: ABSOLUTE MONOCYTE COUNT 1.4 /CUMM (0.10-0.60); BASOPHIL % 0.7 % (0.0-2.0); EOSINOPHIL % 7.2 % (0-5); GRANULOCYTE % 27.9 % (42.2-75.2); HEMATOCRIT 28.6 % (42-52); MEAN CORPUSCULAR HGB 30.7 PG (27.0-31.0); MEAN CORPUSCULAR HGB CONC 33.5 G/DL (33.0-37.0); MEAN CORPUSCULAR VOLUME 91.7 FL (80.0-94.0); MEAN PLATELET VOLUME 9.9 FL (7.4-10.4); PLATELET COUNT 156 /CUMM (130-400); RBC DISTRIBUTION WIDTH 15.1 % (11.5-14.5); RED BLOOD CELL CT 3.12 /CUMM (4.70-6.10); WHITE BLOOD CELL COUNT 4.3 /CUMM (4.8-10.8)
[2016-09-17 08:13] LABS: ABSOLUTE BASOPHIL COUNT 0 /CUMM (0.0-0.2); ABSOLUTE EOSINOPHIL COUNT 0.3 /CUMM (0.0-0.7); ABSOLUTE GRANULOCYTE CT 1.2 /CUMM (1.4-6.5); ABSOLUTE LYMPH COUNT 1.3 /CUMM (1.2-3.4)
[2016-09-17 08:21] VITALS: BP 131/62
[2016-09-17 15:55] VITALS: BP 160/74
[2016-09-17 18:15] VITALS: BP 164/82
--- NOTE | 2016-09-17 19:52 | NUR ---
AT APPROX 1810, PT SEEN TO BE PALE AND WARM. VITALS TAKEN AT THIS TIME, TEMP= 103.9 02 SAT ON RA=87% PT APPEARED LETHARGIC, ABLE TO FOLLOW COMMANDS. OXYGEN PLACED AT 2L, O2 SAT INCREASED TO 91% AT THIS TIME. DR. SD MELARA CALLED, TYLENOL ORDERED. AT APPROX 183 O2 SAT CHECKED AGAIN, PT 89% ON 2L. DR. SD MELARA IN TO SEE PATIENT- CXR, BLOOD CULTURES ORDERED. AT APPROX 193 TEMP =99.4 REPORT GIVEN TO NAT DUBOIS
--- NOTE | 2016-09-17 20:57 | Discharge Summary ---
Visit Information Visit Dates Admission Date: 09/16/16 Discharge Date: 09/20/16 Hospital Course Course Attending Physician: IMELDA THOMAS,MALLORIE Ptunam Primary Care Physician: AGUSTINA THOMAS,[place] Hospital Course: This is a 86-year-old male with past medical history of TIA, CABG, CHF, osteoarthritis, rosas neuroma, came into emergency department on 09/16/2016 with chief complain of weakness, lethargy, loss of appetite and remote diarrhea after recently treated with antibiotics for diverticulitis with ciprofloxacin and Flagyl (which she did not complete the entire course). * On admission he was afebrile, he had a pulse of 81, he was initially hypotensive (70/41) in the ER, responded to fluids, no leukocytosis but had eosinophilia, elevated lactic acid, negative UA. * CT abdominal and pelvis did not show anything acute in the abdomen however showed patchy infiltrates bilateral lung bases which was thought to be most likely secondary to atelectasis. He received one time of IV ceftaz and Vanco for pneumonia. * EKG showed few ST-T wave changes but these were present on previous EKG and troponin was negative on admission. Problem list along with assessment and plan Problem #1 Weakness/lethargy/loss of appetite. * Patient had very poor by mouth intake, he was dehydrated and dry, initially on admission he was hydrated with IV normal saline, it was thought that the weakness and lethargy was secondary to diarrhea, however on day 2 of admission, patient developed high-grade fever along with worsening left lower lobe consolidation, hypotension, tachycardia, and was started on IV azithromycin and ceftriaxone for community-acquired pneumonia. Problem #2 Community-Acquired Pneumonia * On hospital day 2 patient become febrile, had hypotension and tachycardia, met sepsis criteria, was found to have a newly developed left lower lobe consolidation, this was thought to be secondary to community-acquired pneumonia and he was started on IV ceftriaxone and azithromycin for the same.Repeat blood cultures and respiratory cultures were sent.They Did not show any growth, other the yeast on respiratory culture which was thought to be a contaminant. He was transitioned to by mouth moxifloxacin to complete entire course of a total of 7 days. We also did a CT chest without IV contrast to clarify and confirmed dense left lower lobe consolidation with a small free flowing effusion consistent with a small parapneumonic effusion. He needs follow-up CT for radiographic resolution. Problem #3 Demand ischemia * On the night of 09/17/2016 when the patient was hypotensive, tachycardic with high-grade fever, patient had some nonspecific ST-T wave changes which were present on the previous EKG and troponins were measured which were found to be elevated. * Troponins trended at 2.74>>> 3.13>>> 2.57. * Cardiology Dr. Mcdonald was consulted * Overnight the patient was started on IV heparin to rule out non-STEMI however in the setting of infection and positive sepsis this was thought to be type II NV and due to demand ischemia. * IV heparin was discontinued after 24 hours once and STEMI was ruled out. * He was continued on IV and by mouth antibiotics for pneumonia. Problem #4 recent history of significant diarrhea status post antibiotic treatment for diverticulitis. * He did not have any more episodes of diarrhea during the hospital stay. * Stool C. difficile was pending and was not sent Problem #5 history of hypertension. * During admission lisinopril, metoprolol and Lasix were held secondary to low blood pressure. * Imdur was also held secondary to hypotension. * All these medications were continued on discharge. Problem #6 as history of CABG and CHF. * Imdur and Lasix was held inpatient. * Once the patient was more stable these were resumed on discharge Problem #7 hyponatremia, hypomagnesemia, hypokalemia * This was thought to be secondary to dehydration in the setting of sepsis. * All the electrolytes were continuously monitored and repleted and was within normal limits on discharge. He received DVT prophylaxis with subcutaneous heparin, physical therapy saw the patient and recommended short-term rehabilitation before discharge which he was initially reluctant however eventually agreed. Patient is on a statin, on a beta manav and an CYNDI inhibitor which she will continue. I also think his lower extremity swelling will get better once his Lasix was restarted. Patient did have some right lower extremity swelling and we x-rayed it was negative for any DJD, any erosive arthropathy and any fracture. Patient said it didn't feel like his usual gouty attack. However if he does develop an attack of acute gouty arthritis in the right ankle he responds very well to a short course of by mouth prednisone taper 40 mg a day with a taper by 10 mg daily. Allergies: Coded Allergies: NO KNOWN ALLERGIES (12/22/14) Significant Procedures: SERVICE DATE: 09/16/16 EXAM TYPE: RAD - XRY-PORTABLE CHEST XRAY IMPRESSION: Compared to most recent prior available chest radiograph done on 01/09/2015, interval development of subtle airspace opacity is noted at left lung base consistent with infiltrate, atelectasis or combination thereof, with minimal blunting of left lateral CP angle, presumably represent trace amount of ipsilateral pleural effusion. No other significant change. SERVICE DATE: 09/16/16 EXAM TYPE: CAT - CT ABD & PELVIS W IV CONTRAST IMPRESSION: 1. No acute findings within the abdomen or pelvis to explain patient symptomatology. Interval resolution of previously noted acute sigmoid diverticulitis. 2. 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 3. Patchy infiltrates within the bilateral lung bases. This finding is nonspecific and could reflect atelectasis although superimposed infection cannot be excluded in the upper clinical setting. SERVICE DATE: 09/17/16- EXAM TYPE: RAD - XRY-PORTABLE CHEST XRAY IMPRESSION: 1. There has been interval increase in opacity at the left base and at the left CP angle. There is cardiomegaly and mild prominence of the central pulmonary vasculature. 2. The findings may be consistent with developing congestive heart failure. There may also be worsening of consolidation at the left base. Correlate clinically. SERVICE DATE: 09/18/16 EXAM TYPE: RAD - XRY-PORTABLE CHEST XRAY IMPRESSION: 1. Cardiomegaly and pulmonary vascular congestion without interstitial edema. 2. The increased opacity in the inferior aspect of the left lower lobe could be caused by atelectasis and/or pneumonia. SERVICE DATE: 09/19/16- EXAM TYPE: CAT - CT CHEST WO IV CONTRAST IMPRESSION: 1. Small left-sided pleural effusion is seen with associated area of dense consolidation and volume loss in the left lower lobe. Findings are suspicious for pneumonia with adjacent parapneumonic effusion. No complexity to this effusion is seen. Alternatively, findings may be related to dense area of atelectasis. Clinical correlation and followup is recommended. 2. Small right-sided pleural effusion with subjacent subsegmental atelectasis in the right lower lobe. 3. Thoracic aortic aneurysm with maximal AP diameter of the ascending aorta of 4.4 cm. 4. Severe coronary artery calcifications. Moderate atherosclerotic aortic calcifications, including aortic valvular calcifications. 5. Enlarged pulmonary arteries, suspicious for pulmonary arterial hypertension. Pertinent Lab Results: Microbiology Date/Time Procedure - Status Source Growth 09/19 1838 Clostridium difficile Toxin A & B - ORD STOOL 09/17 1929 Blood Culture - RES BLOOD 09/17 1909 Blood Culture - RES BLOOD 09/17 UNK Respiratory Culture - COMP LOWER RESP YEAST 09/17 UNK Gram Stain - COMP LOWER RESP 09/16 2145 Respiratory Culture - CAN LOWER RESP Cancelled: NO SPUTUM COLLLECTED FOR MICRO DEPT 09/16 2145 Gram Stain - CAN LOWER RESP Cancelled: NO SPUTUM COLLLECTED FOR MICRO DEPT Disposition Summary Disposition Principal Diagnosis: #1 Community-acquired pneumonia #2 Positive troponins 2/2 to demand ischemia ( type 2 NV) Additional Diagnosis: #3 Generalized lethargy/weakness #4 H/o diarrhea Discharge Disposition: SNF Discharge Instructions General Discharge Information Code Status: Full Code Patient's Diet: regular Patient's Activity: As tolerated Follow-Up Instructions/Appts: 1. Complete antibiotic course for community-acquired pneumonia 2. Close watch on right ankle swelling and if gouty arthritis is suspected, then a short course of by mouth prednisone taper. 3. Encourage by mouth intake and use ensure 2-3 times a day as necessary 4. Outpatient follow-up with his menagerie caretaker Dr. Lee and his PCP 5. CT chest without contrast in 6-8 weeks to ensure radiographic resolution of dense left lower lobe consolidation Medications at Discharge Discharge Medications: Continue taking these medications: Atorvastatin Calcium (Lipitor) 20 MG TABLET 1 Tablet ORAL DAILY Comments: Last Taken: 12/24/14 Time: 5PM TAKE 1 TABLET EVERY DAY - SIG Obtained From [facility] PAROXETINE HCL (Paroxetine) 20 MG TABLET 20 Milligram ORAL DAILY Qty = 90 Comments: Last Taken: 12/25/14 Time: 9:30 A.M Diazepam (Diazepam) 5 MG TABLET 1 Tablet ORAL 4 TIMES A DAY Lisinopril (Lisinopril) 10 MG TABLET 10 Milligram ORAL DAILY Qty = 90 Comments: Last Taken: 12/25/14 Time: 9:30 A.M TAKE 1 TABLET EVERY DAY - Allopurinol (Allopurinol) 300 MG TAB 1 Tablet ORAL DAILY Qty = 30 Comments: TAKE 1 TABLET BY MOUTH EVERY DAY FOR 30 DAYS - SIG Obtained From [facility] LAST DATE: 12/25/14 TIME 9:30 AM Metoprolol Succinate (Metoprolol Succinate) 100 MG TAB.ER.24H 50 Milligram ORAL DAILY Qty = 90 Comments: Last Taken: 12/25/14 Time: 9:30 A.M TAKE 1 TABLET BY MOUTH EVERY DAY - SIG Obtained From [facility] Furosemide (Lasix) 20 MG TABLET 1 Tablet ORAL Every other day Instructions: stop taking now and resume taking on 10/18/14 Comments: Last Taken: 12/25/14 Time:9:30 AM Isosorbide Mononitrate (Isosorbide Mononitrate ER) 60 MG TAB.ER.24H 1.5 Tablet ORAL DAILY Days = 30 Start taking the following new medications: Moxifloxacin HCl (Avelox) 400 MG TABLET 1 Tablet ORAL DAILY Days = 4 No Refills Copies To: KANE THOMAS,JAN Dumont; HANNAH THOMAS,MARVIN Shea; AGUSTINA THOMAS,SALLY Attending MD Review Statement Documenting Attending: IMELDA THOMAS,MALLORIE Putnam
--- NOTE | 2016-09-17 21:00 | Event Note ---
Event Note Event Note: Was notified at approximately 1825 that the nurse had noticed that this patient was febrile and had a temperature was approximately 103.9. The rest of the patient's vitals were stable. I was currently at the emergency department doing an admission and asked the nurse to check a rectal temperature. 185: Came to the patient's bedside. Patient was alert and oriented 3. Patient 's daughter Xochitl Navarro was at bedside. Patient denied any subjective complaints. A brief bedside physical exam revealed no abnormalities. Repeat temperature was 103.9 650 MG of Tylenol was given. An urgent chest x-ray was ordered to rule out questionable aspiration pneumonia. A set of blood cultures were also drawn. The resident was made aware Signed out the above night team for monitoring.
--- NOTE | 2016-09-17 21:03 | RADIOLOGY REPORT ---
EXAMINATION: XR PORTABLE CHEST CLINICAL INFORMATION: Increased O2 requirements and shortness of breath. COMPARISON: Chest x-ray 09/16/2016. TECHNIQUE: Portable AP 80 degrees semierect view of the chest was obtained. FINDINGS: The lung isabel are moderately well-expanded bilaterally. There is interval increase in the opacity at the left base when compared to the prior study. There is also blunting of the left CP angle. The cardiac silhouette is prominent but stable. There is mild prominence of the central pulmonary vasculature, increased compared to the prior study. The study redemonstrates sequelae of prior median sternotomy. IMPRESSION: 1. There has been interval increase in opacity at the left base and at the left CP angle. There is cardiomegaly and mild prominence of the central pulmonary vasculature. 2. The findings may be consistent with developing congestive heart failure. There may also be worsening of consolidation at the left base. Correlate clinically.
[2016-09-17 22:27] VITALS: BP 100/50
--- NOTE | 2016-09-18 01:54 | Event Note ---
Event Note Event Note: Situation: * Hypotension, tachycardia, fever * SIRS * Positive troponins Brief: * The patient was noted to become hypotensive, tachycardic and fever as evening progressed * CXR: Left base consolidation * Lactic acid: 1.1 * Blood pressure responded with gentle fluid hydration. Held evening dose of Imdur Assessment/plan: * DDX: Pneumonia. Started on azithromycin and ceftriaxone and follow-up cultures * DDX: NSTEMI versus type II * Spoke with cardiology (Dr. Mcdonald). Recommendations at this time: Ecotrin 325 mg, guaic stool, start patient on heparin drip * A.m. team: Please obtain prior cardiac workup * 6 AM EKG and troponin * Follow-up echocardiogram * Patient declined to have rectal guaiac performed. Obtain stool guaiac with next BM
--- NOTE | 2016-09-18 05:24 | NUR ---
LATE ENTRY: ELEVATED TROPONIN AT 0030:2.74. MD CR NOTIFIED. EKG ORDERED AND OBTAINED. ASPRIN ORDERED AND ADMINISTERED. HEPARIN BOLUS AND DRIP ORDERED, BOTH ADMINISTERED. NEXT PTT AT 1030. PT CURRENTLY AFEBRILE. NEXT TROPONIN AND EKG AND 0600. PT REFUSED STOOL GAUIAC. ORDER FOR GAUIAC TO BE OBTAINED NEXT BOWEL MOVEMENT. WILL CONTINUE TO MONITOR.
--- NOTE | 2016-09-18 07:12 | NUR ---
CRITICAL TROP: 3.13. MD CR MADE AWARE. PT. DENIES CHESTPAIN. HEPARIN DRIP RUNNING. NNO
--- NOTE | 2016-09-18 07:36 | PN- Housestaff ---
THUY SOLIS 09/18/16 0736: Subjective Follow-up For: #1 community-acquired pneumonia #2 positive troponins, NSTEMI versus demand ischemia #3 generalized lethargy/weakness #4 H/o diarrhea Complaints: no complaints Subjective: I have seen and examined the patient today morning, he was a little disoriented, however he did not complain of any chest pain, and states that he is not sick to be in the hospital, and does not provide with any complaints, however overnight he was found to be hypotensive, tachycardic and had a high-grade fever of 103.9 overnight, he was also found to have worsening of a left lower lobe consolidation, and he was started on antibiotics. It was also noticed that the chest x-ray showed mild congestion. He made positive troponins which are for now on an increasing trend. We'll check another troponin at 12 PM. He does not have any swelling in the legs, he denies any chest pain, dizziness, shortness of breath, lightheadedness, palpitations. We're holding all his antihypertensive medications as his blood pressure is on the lower side. Continue to reevaluate at every dosage. Review of Systems Constitutional: Reports: malaise, weakness. Denies: chills, diaphoresis, fever, unexplained weight loss. EENTM: Denies: blurred vision, double vision, visual changes, eye pain. Cardiovascular: Denies: chest pain, edema, orthopena. Respiratory: Denies: cough, hemoptysis, orthopnea, short of breath. Gastrointestinal: Denies: abdominal pain, bloating, constipation, diarrhea, distention. Genitourinary: Denies: discharge, dysuria, frequency, hematuria. Musculoskeletal: Denies: back pain, gout, joint pain, joint swelling. Skin: Reports: no symptoms. Neurological/Psychological: Reports: no symptoms. Hematologic/Endocrine: Reports: no symptoms. Immunologic/Allergic: Reports: no symptoms. Objective Last 24 Hrs of Vital Signs/I&O Vital Signs Date Time Temp Pulse Resp B/P Pulse O2 O2 Flow FiO2 Ox Delivery Rate 09/18 0800 97.6 85 20 110/60 94 Nasal 2.0L Cannula 09/18 0321 95 Nasal 2.0L Cannula 09/177 96 100/50 09/179 101 90/60 09/17 1944 99.3 09/17 1905 103.9 09/17 1815 103.9 106 22 164/82 87 Room Air 09/17 1555 98.4 97 18 160/74 92 Room Air Intake & Output 09/18 1600 09/18 0800 09/18 0000 Intake Total 1030 120 Output Total Balance 1030 120 Intake, IV 910 Intake, Oral 120 120 Patient 95.935 kg Weight Physical Exam General Appearance: Alert, Oriented X3, Cooperative Skin: No Rashes, No Breakdown HEENT: Atraumatic, PERRLA, EOMI Neck: Supple, No JVD Lymphatic: no lad Cardiovascular: Normal S1, Normal S2, No Murmurs Lungs: decreased b/s on the left lower side Abdomen: Normal Bowel Sounds, Soft, No Tenderness Neurological: Strength at 5/5 X4 Ext, Normal Tone, Sensation Intact Extremities: No Clubbing, No Cyanosis, No Edema, Normal Pulses Vascular: Normal Pulses Current Medications: Current Medications Sig/Sherrill Start time Last Medication Dose Route Stop Time Status Admin Acetaminophen 650 MG ONCE ONE 09/17 1899 DC 09/17 PO 09/17 1900 1905 Acetaminophen 650 MG Q6P PRN 09/16 2145 AC 09/16 PO 2253 Allopurinol 300 MG DAILY 09/17 1000 AC 09/17 PO 0942 Aspirin 325 MG .STK-MED ONE 09/18 0226 DC PO 09/18 022 Aspirin Buffered 325 MG ONCE ONE 09/18 0200 DC 09/18 PO 09/18 020 0235 Atorvastatin Calcium 20 MG 1700 09/17 1700 AC PO Azithromycin 500 MG DAILY 09/18 0030 AC 09/18 Sodium Chloride 250 ML IV 0155 Bisacodyl 5 MG ONCE ONE 09/17 2345 CAN OK 09/17 2346 Ceftriaxone Sodium 1,000 MG DAILY 09/18 0030 AC 09/18 IV 0155 Diazepam 5 MG 4 TIMES/DAY 09/16 2200 AC 09/17 PO 2126 Furosemide 20 MG Q48 09/19 1000 DC PO Furosemide 20 MG Q48 09/18 1000 AC PO Heparin Sodium 25,000 UNIT Q24H 09/18 0230 AC 09/18 (Porcine) IV 0415 Sodium Chloride 500 ML Heparin Sodium 4,000 UNIT ONCE ONE 09/18 0230 DC 09/18 (Porcine) IV 09/18 0231 0411 Heparin Sodium 5,000 UNIT Q8 09/16 2199 DC 09/17 (Porcine) SC 2126 Isosorbide 60 MG DAILY 09/17 999 AC 09/17 Mononitrate PO 0937 Isosorbide 60 MG QPM 09/16 2199 AC 09/16 Mononitrate PO 2254 Lisinopril 10 MG DAILY 09/17 999 AC 09/17 PO 0940 Magnesium Oxide 400 MG DAILY 09/17 999 AC 09/17 PO 0938 Metoprolol Succinate 50 MG DAILY 09/16 2199 AC 09/17 PO 0940 Paroxetine HCl 20 MG DAILY 09/17 999 AC 09/17 PO 0939 Sodium Chloride 1,000 ML ONCE ONE 09/17 2229 CAN IV 09/18 1149 Sodium Chloride 500 ML BOLUS ONE 09/17 2229 DC 09/17 IV 09/17 2329 2245 Sodium Chloride 1,000 ML Q13H 09/16 2199 DC 09/16 IV 09/17 1059 2200 Last 24 Hrs of Lab/Onesimo Results Last 24 Hrs of Labs/Mics: Laboratory Tests 09/18/16 1017: Sodium Pending, Potassium Pending, Chloride Pending, Carbon Dioxide Pending, Anion Gap Pending, BUN Pending, Creatinine Pending, BUN/Creatinine Ratio Pending , APTT Pending, CBC w Diff Pending, WBC Pending, RBC Pending, Hgb Pending, Hct Pending, MCV Pending, MCH Pending, RDW Pending, Plt Count Pending, MPV Pending, PUBS MCHC Pending 09/18/16 0602: Troponin I 3.13 *H, [id number]-Vhlfiarcwku Pept [id number] H 09/18/16 0002: Lactic Acid 1.1, Troponin I 2.74 *H Microbiology 09/17 1929 BLOOD: Blood Culture - RECD 09/17 1909 BLOOD: Blood Culture - RECD Lines/Diet/Fluids Restraints: none Assessment/Plan Assessment: This is a 86-year-old male with past medical history of TIA, CABG, congestive heart failure, gout, osteoarthritis, Do neuroma came into the emergency department last night - 09/16/2016 with chief complain of weakness and lethargy and diarrhea along with complete loss of appetite after recent treatment with antibiotics for diverticulitis with ciprofloxacin and Flagyl. He is status post completion of the entire antibiotic course. In the emergency department he received 1 dose of IV ceftazidime and vancomycin. On admission he had low sodium, low magnesium, initial lactic acid was 2.5 which trended down to 1.1. CT scan of the abdominal and pelvis did not show anything significant or any acute changes other than bibasilar lung infiltrate which most likely would be secondary to atelectasis and looks less likely to be pneumonia. On the night of 09/17/2016, he was found to have hypotension, tachycardia and a high-grade fever of 103.9, with worsening left basilar consolidation and mild pulmonary congestion. He also had some nonspecific ST-T wave changes which were present on the previous EKG. His initial set of troponins on admission were negative however on this episode, EKG and troponins were checked which trended as 2.74 >>>> , he was started on IV ceftriaxone and azithromycin for CAP and started on iv heparin for suspected nstemi v/s demand ischemia. Problem list along with assessment and plan Problem #1 Weakness/lethargy/loss of appetite. * Patient has poor by mouth intake. * He is dehydrated and dry. * Continue to monitor vitals closely. * This could be 2/2 to udnerlying infection namely pnuemonia, which is manifesting since last night. * Will check rapid flu test Problem #2 Recent history of significant diarrhea status post antibiotic treatment. * stool for C. difficile still pending * todays labs awaited. * No episodes of diarrhea in last 2 to 3 days. Problem #3 Bibasilar patchy infiltrates, jose angel newly develpoing consolidation in Left lower lobe likely community acquired pnuemonia. * He had an episode of hypotension and tachycardia and was found to have a high- grade fever of 103.9. * He was started on IV ceftriaxone and azithromycin after evidence of consolidation on chest x-ray. * Labs awaited. * Blood cultures and respiratory cultures were sent, continue to follow. * Repeat chest x-ray as per cardiology today. Problem #4 positive troponins, and STEMI versus demand ischemia. * Cardiology Dr. Mcdonald was called yesterday is on board. * Continue IV heparin. * Continue to trend troponin next troponin and EKG at 12 PM * Patient also had mild pulmonary congestion on the chest x-ray, we will check proBNP. * Continue to follow cardiology recommendations. Problem #5 history of hypertension. * We will hold the lisinopril, and metoprolol for now as his blood pressure is running on the lower side. * Continue to reevaluate and follow holding parameters prior to dosing lisinopril, metoprolol and Lasix. Problem #6 significant cardiac history. * Patient is on Imdur at home. * We'll hold it for now secondary to low blood pressure. * We'll continue to evaluate. Problem #7 hyponatremia, hypomagnesemia, hypokalemia. * This could be most likely is all secondary to diarrhea and dehydration. * Mg was repeated and now within normal limits. * continue to replete as necessary, todays labs awaited. DVT prophylaxis with subcutaneous illness heparin. Patient is full code PT evaluation placed. Continue regular diet. Problem List: 1. Elevated troponin 2. Community acquired pneumonia 3. Diarrhea 4. Hypotension 5. Hyponatremia Pain Ratin Pain Location: na Pain Goal: Remain pain free Pain Plan: tylenol Tomorrow's Labs & Rationales: cbc, bep Discharge Plan Discharge Disposition: home Stable for Discharge? No IMELDA THOMAS,MALLORIE 09/18/16 1006: Attending MD Review Statement Attending Statement Attending MD Statement: examined this patient, discuss w/resident/PA/MATERIALS TECHNICIAN, agreed w/resident/PA/MATERIALS TECHNICIAN, reviewed EMR data (avail), discussed with nursing, discussed with case mgmt Attending Assessment/Plan: Events overnight noted. Patient became acutely febrile and hypotensive. Repeat chest x-ray showed questionable evolving infiltrate in the left base. He was cultured and started on IV ceftriaxone and azithromycin for community-acquired pneumonia. In addition his troponin is also positive. It appears that he may have had acute non-ST elevation MN or demand ischemia in the setting of the fever. He is symptom free as far as chest pain goes. We'll also do a flu swab, started on IV heparin per cardiology and follow-up closely.
[2016-09-18 08:00] VITALS: BP 110/60
--- NOTE | 2016-09-18 08:50 | Patient Discharge Instructions ---
Discharge Instructions General Discharge Information You were seen/treated for: community acquired pnuemonia Special Instructions: please follow up with your pcp and life enrichment manager within oen week of discharge. please continue to take your medicatinos as prescribed. Diet Continue normal diet: No Recommended Diet: Heart Healthy Acute Coronary Syndrome Inclusion Criteria At DC or during hospital stay patient has or had the following: ACS DIAGNOSIS No Discharge Core Measures Meds if any: Prescribed or Continued at Discharge Meds if any: NOT Prescribed or Continued at Discharge Congestive Heart Failure Inclusion Criteria At DC or during hospital stay patient has or had the following: CHF DIAGNOSIS Yes Discharge Core Measures Meds if any: Prescribed or Continued at Discharge CYNDI/ARB for EF <40% Yes Meds if any: NOT Prescribed or Continued at Discharge Cerebrovascular accident Inclusion Criteria At DC or during hospital stay patient has or had the following: CVA/TIA Diagnosis No Discharge Core Measures Meds if any: Prescribed or Continued at Discharge Meds if any: NOT Prescribed or Continued at Discharge Venous thromboembolism Inclusion Criteria VTE Diagnosis No VTE Type NONE VTE Confirmed by (Test) NONE Discharge Core Measures - Per Current guidelines, there needs to be overlap - treatment for the first 5 days of Warfarin therapy. - If discharged on Warfarin prior to 5 days of - overlap therapy, the patient will need to be - assessed for post discharge needs including - *Post discharge parental anticoagulation - *Warfarin and/or parental anticoagulation education - *Follow up date to check INR post discharge At least 5 days overlap therapy as Inpatient No Meds if any: Prescribed or Continued at Discharge Note: Overlap Therapy is Warfarin and Anticoagulant Meds if any: NOT Prescribed or Continued at Discharge
--- NOTE | 2016-09-18 09:45 | NUR ---
PHYSICAL THERAPY. Pt'S TROPONINS CURRENTLY RISING 2.74->3.13 THIS AM. Pt DENIES CHEST PAIN AT THIS TIME AND NS CLEARED Pt FOR OOB TO RECLINER. Pt CURRENTLY REFUSING TRANSFER OOB. PT WILL F/U APPROPRIATE.
[2016-09-18 10:48] LABS: ABSOLUTE BASOPHIL COUNT 0 /CUMM (0.0-0.2); ABSOLUTE EOSINOPHIL COUNT 0.2 /CUMM (0.0-0.7); ABSOLUTE LYMPH COUNT 1.3 /CUMM (1.2-3.4); ABSOLUTE MONOCYTE COUNT 2.4 /CUMM (0.10-0.60); EOSINOPHIL % 3.5 % (0-5); RED BLOOD CELL CT 3.12 /CUMM (4.70-6.10)
[2016-09-18 11:08] LABS: ABSOLUTE GRANULOCYTE CT 2.9 /CUMM (1.4-6.5); BASOPHIL % 0.5 % (0.0-2.0); HEMATOCRIT 28.9 % (42-52); MEAN CORPUSCULAR HGB 30.3 PG (27.0-31.0); MEAN CORPUSCULAR HGB CONC 32.7 G/DL (33.0-37.0); MEAN CORPUSCULAR VOLUME 92.5 FL (80.0-94.0); MEAN PLATELET VOLUME 10.4 FL (7.4-10.4); PLATELET COUNT 175 /CUMM (130-400); RBC DISTRIBUTION WIDTH 15.7 % (11.5-14.5)
[2016-09-18 11:12] LABS: GRANULOCYTE % 42.6 % (42.2-75.2); PTT 93 SEC (25-37); WHITE BLOOD CELL COUNT 6.9 /CUMM (4.8-10.8)
--- NOTE | 2016-09-18 13:27 | RADIOLOGY REPORT ---
EXAMINATION: XR PORTABLE CHEST CLINICAL INFORMATION: Follow-up pneumonia and pulmonary congestion. COMPARISON: 09/16/2016 and 09/17/2016 TECHNIQUE: Portable view of the chest was obtained. FINDINGS: Again noted is cardiomegaly and large pulmonary vessels. The pulmonary vascular congestion appears slightly improved compared to 09/17/2016 and there is no interstitial edema. The left costophrenic sulcus is blunted, but this appears to be due to lateral extension of the paracardiac fat as seen on the abdomen CT of 09/16/2016. An increased opacity within the inferior aspect of the left lower lobe is nonspecific and could represent worsening atelectasis or pneumonia -- if in the right clinical context. IMPRESSION: 1. Cardiomegaly and pulmonary vascular congestion without interstitial edema. 2. The increased opacity in the inferior aspect of the left lower lobe could be caused by atelectasis and/or pneumonia.
[2016-09-18 15:30] VITALS: BP 128/62
[2016-09-18 16:51] LABS: PTT 58 SEC (25-37)
--- NOTE | 2016-09-18 17:25 | Cons- Cardiology ---
General Information and HPI Consulting Request Date of Consult: 09/18/16 Requested By: MALLORIE SEGURA MD Reason for Consult: Positive troponin I Source of Information: patient, family, old records Exam Limitations: poor historian History of Present Illness: Mr. Flakito Peters is in 86-year-old male with a history of hypertension, dyslipidemia, "borderline" diabetes mellitus, gout, previous TIA, and coronary artery disease, s/p CABG, and previous heart failure who presented from home to the emergency department secondary to poor by mouth intake, weakness, lethargy, diarrhea, weight loss. Symptoms began, according to his daughter, after he was started on antimicrobial therapy for diverticular disease diagnosed in August 2016. More recently the patient was complaining of a cough productive of yellowish sputum without associated fever, chills, etc. There have been no complaints of chest discomfort, palpitations, orthopnea, paroxysmal nocturnal dyspnea, bilateral lower extremity edema, etc. Allergies/Medications Allergies: Coded Allergies: NO KNOWN ALLERGIES (12/22/14) Home Med List: Allopurinol 300 MG TAB 1 TAB PO DAILY GOUT (Reported) Atorvastatin Calcium (Lipitor) 20 MG TABLET 1 TAB PO DAILY CHOLESTEROL ( Reported) Diazepam 5 MG TABLET 1 TAB PO 4 TIMES/DAY SPASM (Reported) Furosemide (Lasix) 20 MG TABLET 1 TAB PO EOD FLUID (Reported) stop taking now and resume taking on 10/18/14 Isosorbide Mononitrate (Isosorbide Mononitrate ER) 60 MG TAB.ER.24H 1 TAB PO DAILY CHEST PAIN (Reported) Isosorbide Mononitrate (Isosorbide Mononitrate ER) 60 MG TAB.ER.24H 1 TAB PO QPM HEART (Reported) Lisinopril 10 MG TABLET 10 MG PO DAILY HTN (Reported) Metoprolol Succinate 100 MG TAB.ER.24H 50 MG PO DAILY HTN (Reported) PAROXETINE HCL (Paroxetine) 20 MG TABLET 20 MG PO DAILY ANXIETY (Reported) Review of Systems Review of Systems: 14 point system review was obtained and was noncontributory, other than as above. 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 Surgical History Surgical History: CABG (1985 X 3) Family History Relations & Conditions If Any: FATHER FH: CAD (coronary artery disease) Psychosocial History Services at Home: None Smoking Status: Never Smoked ETOH Use: denies use Illicit Drug Use: denies illicit drug use Exam & Diagnostic Data Vital Signs and I&O Vital Signs Date Time Temp Pulse Resp B/P Pulse O2 O2 Flow FiO2 Ox Delivery Rate 09/18 1040 79 10052 09/18 1040 79 10052 09/18 1039 79 10052 09/18 08 Nasal 2.0L Cannula 09/18 08 97.6 85 20 110/60 94 Nasal 2.0L Cannula 09/18 0321 95 Nasal 2.0L Cannula 09/17 2227 96 100/50 09/17 2129 101 90/60 09/17 1944 99.3 09/17 1905 103.9 09/17 1815 103.9 106 22 164/82 87 Room Air Intake & Output 09/18 1600 09/18 0800 09/18 0000 09/17 1600 09/17 0700 09/17 0000 Intake Total 550 1030 120 520 270 Output Total 320 950 500 300 Balance 230 1030 120 -950 20 -30 Intake, IV 910 400 150 Intake, Oral 550 120 120 120 120 Number 1 Bowel Movements Output, Urine 320 950 500 300 Patient 212 lb 212 lb 220 lb Weight Physical Exam: Well-developed, obese elderly male in no acute distress with oxygen in place. Vital signs: See above. HEENT: Normocephalic, atraumatic, EOMI, slightly dry mucous membranes. Neck: No JVD, no bruits. Lungs: Occasional rhonchi, otherwise clear. Heart: S1, S2 with grade 1-2/6 systolic murmur. No gallop or rub appreciated. Abdomen: Soft, nontender, positive bowel sounds. Extremities: No edema. Labs/Onesimo Results: Laboratory Tests 09/18 09/18 09/18 1630 1254 1017 Chemistry Sodium (137 - 145 mmol/L) 135 L Potassium (3.5 - 5.1 mmol/L) 3.8 Chloride (98 - 107 mmol/L) 101 Carbon Dioxide (22 - 30 mmol/L) 23 Anion Gap (5 - 16) 11 BUN (9 - 20 mg/dL) 12 Creatinine (0.7 - 1.2 mg/dL) 1.2 Estimated GFR (>60 ml/min) 58 L BUN/Creatinine Ratio (7 - 25 %) 10.0 Troponin I (<0.11 ng/ml) 2.57 *H Coagulation APTT (25 - 37 SEC) Pending 93 H Hematology CBC w Diff MAN DIFF ORDERED WBC (4.8 - 10.8 /CUMM) 6.9 RBC (4.70 - 6.10 /CUMM) 3.12 L Hgb (14.0 - 18.0 G/DL) 9.4 L Hct (42 - 52 %) 28.9 L MCV (80.0 - 94.0 FL) 92.5 MCH (27.0 - 31.0 PG) 30.3 RDW (11.5 - 14.5 %) 15.7 H Plt Count (130 - 400 /CUMM) 175 MPV (7.4 - 10.4 FL) 10.4 Gran % (42.2 - 75.2 %) 42.6 Lymphocytes % (20.5 - 51.1 %) 18.4 L Monocytes % (1.7 - 9.3 %) 35.0 H Eosinophils % (0 - 5 %) 3.5 Basophils % (0.0 - 2.0 %) 0.5 Absolute Granulocytes (1.4 - 6.5 /CUMM) 2.9 Absolute Lymphocytes (1.2 - 3.4 /CUMM) 1.3 Absolute Monocytes (0.10 - 0.60 /CUMM) 2.4 H Absolute Eosinophils (0.0 - 0.7 /CUMM) 0.2 Absolute Basophils (0.0 - 0.2 /CUMM) 0 Platelet Estimate (ADEQUATE) ADEQUATE Anisocytosis 1+ PUBS MCHC (33.0 - 37.0 G/DL) 32.7 L 09/18 09/18 09/17 0602 0002 0600 Chemistry Lactic Acid (0.7 - 2.1 mmol/L) 1.1 Magnesium Cancelled Troponin I (<0.11 ng/ml) 3.13 *H 2.74 *H [id number]-B-[id number] Pept (<125 pg/mL) 30292 H 09/17 09/17 0600 0020 Chemistry Sodium (137 - 145 mmol/L) 133 L Potassium (3.5 - 5.1 mmol/L) 3.5 Chloride (98 - 107 mmol/L) 97 L Carbon Dioxide (22 - 30 mmol/L) 23 Anion Gap (5 - 16) 12 BUN (9 - 20 mg/dL) 8 L Creatinine (0.7 - 1.2 mg/dL) 0.8 Estimated GFR (>60 ml/min) > 60 BUN/Creatinine Ratio (7 - 25 %) 10.0 Magnesium (1.6 - 2.3 mg/dL) 1.8 Troponin I (<0.11 ng/ml) 0.02 Hematology CBC w Diff MAN DIFF ORDERED WBC (4.8 - 10.8 /CUMM) 4.3 L RBC (4.70 - 6.10 /CUMM) 3.12 L Hgb (14.0 - 18.0 G/DL) 9.6 L Hct (42 - 52 %) 28.6 L MCV (80.0 - 94.0 FL) 91.7 MCH (27.0 - 31.0 PG) 30.7 RDW (11.5 - 14.5 %) 15.1 H Plt Count (130 - 400 /CUMM) 156 MPV (7.4 - 10.4 FL) 9.9 Gran % (42.2 - 75.2 %) 27.9 L Lymphocytes % (20.5 - 51.1 %) 30.5 Monocytes % (1.7 - 9.3 %) 33.7 H Eosinophils % (0 - 5 %) 7.2 H Basophils % (0.0 - 2.0 %) 0.7 Absolute Granulocytes (1.4 - 6.5 /CUMM) 1.2 L Segmented Neutrophils (42.2 - 75.2 %) 31 L Absolute Lymphocytes (1.2 - 3.4 /CUMM) 1.3 Lymphocytes (20.5 - 51.1 %) 31 Monocytes (1.7 - 9.3 %) 27 H Absolute Monocytes (0.10 - 0.60 /CUMM) 1.4 H Eosinophils (0 - 5.0 %) 8 H Absolute Eosinophils (0.0 - 0.7 /CUMM) 0.3 Absolute Basophils (0.0 - 0.2 /CUMM) 0 Metamyelocytes (0.0 - 1.0 %) 2 H Myelocytes (0 - 0 %) 1 H Platelet Estimate (ADEQUATE) VERIFIED BY SMEAR Normocytic RBCs VERIFIED Normochromic RBCs VERIFIED PUBS MCHC (33.0 - 37.0 G/DL) 33.5 09/16 1803 Urines Urinalysis LIGHT H Urine Color (YEL,AMB,STR) YEL Urine Clarity (CLEAR) HAZY H Urine pH (5.0 - 8.0) 6.0 Ur Specific [place] (1.001 - 1.035) <= 1.005 Urine Protein (NEG,<30 MG/DL) NEG Urine Ketones (NEG) NEG Urine Nitrite (NEG) NEG Urine Bilirubin (NEG) NEG Urine Urobilinogen (0.1 - 1.0 EU/dl) 1.0 Ur Leukocyte Esterase (NEG) NEG Ur Microscopic SEDIMENT EXAMINED Urine RBC (0 - 5 /HPF) FEW H Urine WBC (0 - 2 /HPF) RARE Urine Hemoglobin (NEG) TRACE-INTACT H Urine Glucose (N MG/DL) NEG Diagnostic Data EKG Results (09/18/2016) sinus rhythm, possible left atrial abnormality, small inferior Q waves, and minor nondiagnostic ST-T wave abnormalities. CXR Results (09/18/2016) Cardiomegaly and pulmonary vascular congestion without interstitial edema. The increased opacity in the inferior aspect of the left lower lobe could be caused by atelectasis and/or pneumonia. Assessment/Plan Assessment/Plan Elderly male with known coronary and previous heart failure who was admitted on 09/16/2016 with decreased by mouth intake, weight loss, fatigue, lethargy, etc. of several weeks duration after being treated with antimicrobial therapy for diverticular disease with associated initial hypotension, nonspecific ST-T wave abnormalities and subsequent troponin I and NT-PRO BNP elevations with improved hemodynamic status following volume administration with positive fluid balance and subsequent fever. Suspect that the initial hypotension and decreased perfusion with some ischemia was responsible for the relatively modest troponin I elevation that he experienced that is now improving and that he will continue to need volume given his febrile illness of uncertain etiology. Also suspect there is an element of demand ischemia from his acute illness, rapid heart rates, possible left ventricular hypertrophy, etc. For now, would continue to hydrate while the source of his febrile illnesses is further investigated. As he will continue to need volume, would obtain an echocardiogram to assess his left ventricular systolic/diastolic function, degree of left ventricular hypertrophy, etc. Note the elevation in his BUN/creatinine and would hold his CYNDI inhibitor and any further diuretic therapy for the short-term. Consider ID input. Continue DVT prophylaxis. Consult Acknowledgment - Thank you for your consult request.
[2016-09-18 23:00] VITALS: BP 112/64
[2016-09-19 01:05] LABS: PTT 53 SEC (25-37)
--- NOTE | 2016-09-19 07:17 | PN- Housestaff ---
THUY SOLIS 09/19/16 0717: Subjective Follow-up For: 1.community-acquired pneumonia 2.positive troponins most likely 2/2 to type 2 DC 3. generalized lethargy/weakness 4. H/o diarrhea s/p recent antbiotic usage Complaints: no complaints Tele-Events Since Last Visit: nsr, 80's to 90's Subjective: I have seen and examined the patient today morning.He seems to be doing better, afebrile overnight, no new complaints, remains normal sinus rhythm on the monitor, his labs are stable, he was a little anxious today morning and was feeling for his pills, however he did not complain of any shortness of breath, pain, chest pain or any other complaints. Review of Systems Constitutional: Denies: chills, diaphoresis, fever, malaise. EENTM: Denies: blurred vision, double vision, visual changes, eye pain. Cardiovascular: Denies: chest pain, edema, orthopena, palpitations. Respiratory: Denies: cough, hemoptysis, orthopnea, short of breath, sputum production. Gastrointestinal: Denies: abdominal pain, bloating, constipation, diarrhea, distention. Genitourinary: Reports: no symptoms. Musculoskeletal: Reports: no symptoms. Skin: Reports: no symptoms. Neurological/Psychological: Reports: no symptoms. Hematologic/Endocrine: Reports: no symptoms. Objective Last 24 Hrs of Vital Signs/I&O Vital Signs Date Time Temp Pulse Resp B/P Pulse O2 O2 Flow FiO2 Ox Delivery Rate 09/19 0000 Nasal 2.0L Cannula 09/18 2300 97.1 84 22 112/64 94 Nasal 2.0L Cannula 09/18 2138 84 112/64 09/18 1530 97.8 87 20 128/62 94 Nasal 2.0L Cannula 09/18 1040 79 100/52 09/18 1040 79 100/52 09/18 1039 79 100/52 09/18 0800 Nasal 2.0L Cannula 09/18 0800 97.6 85 20 110/60 94 Nasal 2.0L Cannula Intake & Output 09/19 0800 09/19 0000 09/18 1600 Intake Total 884 810 550 Output Total 250 350 320 Balance 634 460 230 Intake, IV 784 310 Intake, Oral 100 500 550 Number 0 0 1 Bowel Movements Output, Urine 250 350 320 Patient 95.935 kg Weight Physical Exam General Appearance: Alert, Oriented X3, Cooperative, No Acute Distress Skin: No Rashes, No Breakdown HEENT: Atraumatic, PERRLA, EOMI Neck: Supple, No JVD, No thryomegaly Lymphatic: no lad Cardiovascular: Regular Rate, Normal S1, Normal S2, No Murmurs Lungs: Clear to Auscultation, Normal Air Movement Abdomen: Normal Bowel Sounds, Soft, No Tenderness, No Hepatospenomegaly Neurological: Normal Speech, Strength at 5/5 X4 Ext, Normal Tone, Sensation Intact, Cranial Nerves 3-12 NL Extremities: No Clubbing, No Cyanosis, No Edema, Normal Pulses Vascular: Normal Pulses Current Medications: Current Medications Sig/Sherrill Start time Last Medication Dose Route Stop Time Status Admin Acetaminophen 650 MG .STK-MED ONE 09/18 2132 DC PO 09/18 213 Acetaminophen 650 MG Q6P PRN 09/16 2145 AC 09/18 PO 2139 Allopurinol 300 MG DAILY 09/17 1000 AC 09/18 PO 1040 Atorvastatin Calcium 20 MG 1700 09/17 1700 AC 09/18 PO 1746 Azithromycin 500 MG DAILY 09/19 1000 DC Sodium Chloride 250 ML IV Azithromycin 500 MG 0200 09/19 0200 AC 09/19 Sodium Chloride 250 ML IV 0234 Azithromycin 500 MG DAILY 09/18 003 DC 09/18 Sodium Chloride 250 ML IV 0155 Ceftriaxone Sodium 1,000 MG 0200 09/19 0200 AC 09/19 IV 0234 Ceftriaxone Sodium 1,000 MG DAILY 09/18 0030 DC 09/18 IV 0155 Diazepam 5 MG 4 TIMES/DAY 09/16 2199 AC 09/18 PO 2138 Furosemide 20 MG Q48 09/18 1000 DC PO Heparin Sodium 2,878 UNIT BOLUS ONE 09/190 DC 09/19 (Porcine) IV 09/19 300 0300 Heparin Sodium 2,900 UNIT ONCE ONE 09/18 1944 DC 09/18 (Porcine) IV 09/18 Heparin Sodium 25,000 UNIT Q24H 09/18 0230 AC 09/19 (Porcine) IV 0318 Sodium Chloride 500 ML Isosorbide 60 MG DAILY 09/17 1000 AC 09/17 Mononitrate PO 0937 Isosorbide 60 MG QPM 09/16 2199 AC 09/18 Mononitrate PO 2138 Lisinopril 10 MG DAILY 09/17 1000 DC 09/17 PO 0940 Magnesium Oxide 400 MG DAILY 09/17 1000 AC 09/18 PO 1038 Metoprolol Succinate 50 MG DAILY 09/16 2200 AC 09/17 PO 0940 Paroxetine HCl 20 MG DAILY 09/17 1000 AC 09/18 PO 1039 Patient Medication 1 ED .STK-MED ONE 09/18 1357 DC Teaching ED 09/18 1358 Sodium Chloride 1,000 ML Q13H 09/18 1800 DC 09/18 IV 09/19 0659 2003 Sodium Chloride 1,000 ML Q13H 09/18 1800 DC IV Last 24 Hrs of Lab/Onesimo Results Last 24 Hrs of Labs/Mics: Laboratory Tests 09/19/16 0625: Sodium Pending, Potassium Pending, Chloride Pending, Carbon Dioxide Pending, Anion Gap Pending, BUN Pending, Creatinine Pending, BUN/Creatinine Ratio Pending , CBC w Diff Pending, WBC Pending, RBC Pending, Hgb Pending, Hct Pending, MCV Pending, MCH Pending, RDW Pending, Plt Count Pending, MPV Pending, PUBS MCHC Pending 09/19/16 0000: APTT 53 H 09/18/16 1630: APTT 58 H 09/18/16 1254: Troponin I 2.57 *H 09/18/16 1017: Anion Gap 11, Estimated GFR 58 L, BUN/Creatinine Ratio 10.0, APTT 93 H, CBC w Diff MAN DIFF ORDERED, RBC 3.12 L, MCV 92.5, MCH 30.3, RDW 15.7 H, MPV 10.4, Gran % 42.6, Lymphocytes % 18.4 L, Monocytes % 35.0 H, Eosinophils % 3.5, Basophils % 0.5, Absolute Granulocytes 2.9, Absolute Lymphocytes 1.3, Absolute Monocytes 2.4 H, Absolute Eosinophils 0.2, Absolute Basophils 0, Platelet Estimate ADEQUATE, Anisocytosis 1+, PUBS MCHC 32.7 L Lines/Diet/Fluids Restraints: none Assessment/Plan Assessment: This is a 86-year-old male with past medical history of TIA, CABG, congestive heart failure, gout, osteoarthritis, 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 He is status post completion of the entire antibiotic course. In the emergency department he received 1 dose of IV ceftazidime and vancomycin. On admission he had low sodium, low magnesium, initial lactic acid was 2.5 which trended down to 1.1.CT scan of the abdominal and pelvis did not show anything significant or any acute changes other than bibasilar lung infiltrate which most likely would be secondary to atelectasis and looks less likely to be pneumonia. On the night of 09/17/2016, he was found to have hypotension, tachycardia and a high-grade fever of 103.9, with worsening left basilar consolidation and mild pulmonary congestion. He also had some nonspecific ST-T wave changes which were present on the previous EKG. His initial set of troponins on admission were negative however on this episode, EKG and troponins were checked which trended as 2.74 >>>> 3.13>>>>2.74, he was started on IV ceftriaxone and azithromycin for CAP and started on Iv heparin for suspected nstemi v/s demand ischemia. He was seen by Dr. Randle and the rise in troponin was thought to be secondary to demand ischemia. Fluid administration was continued, as chest x-ray did not show any overt interstitial edema in the setting of sepsis. Problem list along with assessment and plan #1 Weakness/lethargy/loss of appetite. * He had 75% on his dinner and 50% lunch yday more compared to no dinner and 25% of lunch on 09/27/2016, continued ensure 3 times a day as per nutrition. * We expect his diet to continue improving, as his medical condition improves. #2 Recent history of significant diarrhea status post antibiotic treatment. * Stool for C. difficile pending * No episodes of diarrhea after admission. #3 left lower lobe consolidation most likely secondary to community-acquired pneumonia. * He had an episode of hypotension and tachycardia and was found to have a high- grade fever of 103.9 on the night of 09/27/2016, he remains afebrile since then. * Continue IV ceftriaxone and azithromycin - day 2 today. * No growth on blood cultures so far. * Will do Ct-chest without contrast to further evaluate the left lower lobe consolidation. #4 Positive troponins 2/2 to demand ischemia. * Cardiology consult appreciated * Patient was on IV heparin as per verbal discussion with Dr randle, will DC it, as the rise in troponin 2/2 to demand ischemia. * Patient also had mild pulmonary congestion on the chest x-ray , elevated proBNP however no overt interstitial edema, therefore not concerned of patient being into heart failure. * Continue to follow cardiology recommendations. #5 history of hypertension. * We will hold the lisinopril, lasix. * Will also hold Metoprolol for now as his blood pressure is running on the lower side. * Continue to reevaluate and for holding parameters prior to metoprolol. #6 Significant cardiac history. * Patient is on Imdur at home- dose confirm and changes to 1 and half tablet daily * We'll hold it for if low blood pressure. * We'll continue to evaluate. Problem #7 hyponatremia, hypomagnesemia, hypokalemia. * Resolved. DVT prophylaxis with subcutaneous illness heparin. Patient is full code PT evaluation recommend STR( pt not willing) Continue regular diet. Problem List: 1. Community acquired pneumonia 2. Elevated troponin 3. Hypotension Pain Ratin Pain Location: na Pain Goal: Remain pain free Pain Plan: tylenol Tomorrow's Labs & Rationales: bep Discharge Plan Discharge Disposition: STR/NH Stable for Discharge? No Anticipated Discharge (Day): two days MALLORIE SEGURA MD 09/19/16 0945: Attending MD Review Statement Attending Statement Attending MD Statement: examined this patient, discuss w/resident/PA/CROP DUSTER, agreed w/resident/PA/CROP DUSTER, reviewed EMR data (avail), discussed with nursing, discussed with case mgmt Attending Assessment/Plan: Pt feels very weak. He is also very upset that the thought of going to rehabilitation. He is an 86-year-old male with a history of coronary artery disease status post bypass, gout, borderline diabetes. He had an episode of diverticulitis in August following which his by mouth intake had decreased he became very weak and barely was walking around the house and was admitted with weakness and found to be febrile and we are treating him for a community- acquired pneumonia. Appreciate cardiology eval. I'll get a noncontrast chest CT just to clarify that the opacity in the left base is in fact a pneumonia. If it is a pneumonia been no continue the IV antibiotics and if the opacity is not clarified and will call ID. Given his hypotension and his BUN and creatinine the Lasix and lisinopril are on hold. He is on his nitrate and beta manav. He is on the IV heparin for the positive troponin which cardiology feels is demand ischemia from his fever and low blood pressure but will follow-up.
[2016-09-19 07:57] LABS: ABSOLUTE BASOPHIL COUNT 0 /CUMM (0.0-0.2); ABSOLUTE EOSINOPHIL COUNT 0.4 /CUMM (0.0-0.7); ABSOLUTE GRANULOCYTE CT 1.2 /CUMM (1.4-6.5); ABSOLUTE LYMPH COUNT 1.5 /CUMM (1.2-3.4); ABSOLUTE MONOCYTE COUNT 1.1 /CUMM (0.10-0.60); BASOPHIL % 0.7 % (0.0-2.0); EOSINOPHIL % 8.6 % (0-5); GRANULOCYTE % 29.1 % (42.2-75.2); HEMATOCRIT 26.6 % (42-52); MEAN CORPUSCULAR HGB 30.5 PG (27.0-31.0); MEAN CORPUSCULAR HGB CONC 33.4 G/DL (33.0-37.0); MEAN CORPUSCULAR VOLUME 91.6 FL (80.0-94.0); MEAN PLATELET VOLUME 10.4 FL (7.4-10.4); PLATELET COUNT 163 /CUMM (130-400); RED BLOOD CELL CT 2.91 /CUMM (4.70-6.10); WHITE BLOOD CELL COUNT 4.1 /CUMM (4.8-10.8)
[2016-09-19 08:00] VITALS: BP 120/66
[2016-09-19 09:52] LABS: PTT 68 SEC (25-37)
--- NOTE | 2016-09-19 14:34 | CT SCAN REPORT ---
EXAMINATION: CT CHEST WITHOUT CONTRAST CLINICAL INFORMATION: Fever. Tachycardia. Hypotension. Evaluate opacity on left lower lobe. COMPARISON: Chest x-ray dated 09/18/2016 and 09/17/2016. CT scan of the abdomen dated 09/16/2016. TECHNIQUE: Multidetector volumetric CT imaging of the chest was obtained noncontrast. Sagittal and coronal reformations were obtained. DLP: 425.74 mGy-cm FINDINGS: LUNGS: Small left-sided layering pleural effusion is seen with subjacent area of dense consolidation and volume loss with air bronchograms in the left lower lobe, possibly due to associated pneumonia. There is a smaller right-sided pleural effusion with associated patchy parenchymal opacities in the lower lobe, more likely related to atelectasis. Upper lobes and right middle lobe are largely clear. The central airways are mildly narrowed in the hilar regions but patent. LYMPHOVASCULAR STRUCTURES: Aneurysmal dilatation of the aorta is seen with the ascending aorta measuring 4.4 cm and the descending aorta 3.7 cm at the level of the right main pulmonary artery. Aortic arch just beyond the takeoff of the left subclavian artery measures 3.6 cm. Moderate atherosclerotic calcifications of the aorta, aortic valve and severe coronary artery calcifications are seen. The patient is status post median sternotomy and CABG surgery. Heart size normal. No pericardial effusion. The central pulmonary arteries are enlarged with the right main pulmonary artery measuring 3.4 cm and the left main pulmonary artery 2.8 cm, consistent with pulmonary arterial hypertension. No mediastinal, hilar or axillary adenopathy or free fluid collection. THYROID GLAND: Unremarkable to the extent included. UPPER ABDOMEN: There is a 3.0 x 3.6 cm exophytic cyst in the upper pole of the right kidney. Slight hypertrophy of the adrenal glands is seen. There is a small hiatal hernia. Included portions of the solid organs in the upper abdomen otherwise unremarkable. BONES: There is a convex right lumbar curvature with multilevel moderate vertebral spondylosis. Old healed fracture deformity of the anterolateral left 9th rib is seen at the costovertebral junction, unchanged. No suspicious bone findings. IMPRESSION: 1. Small left-sided pleural effusion is seen with associated area of dense consolidation and volume loss in the left lower lobe. Findings are suspicious for pneumonia with adjacent parapneumonic effusion. No complexity to this effusion is seen. Alternatively, findings may be related to dense area of atelectasis. Clinical correlation and followup is recommended. 2. Small right-sided pleural effusion with subjacent subsegmental atelectasis in the right lower lobe. 3. Thoracic aortic aneurysm with maximal AP diameter of the ascending aorta of 4.4 cm. 4. Severe coronary artery calcifications. Moderate atherosclerotic aortic calcifications, including aortic valvular calcifications. 5. Enlarged pulmonary arteries, suspicious for pulmonary arterial hypertension.
[2016-09-19 15:30] VITALS: BP 120/60
[2016-09-19] MEDS ORDERED: AVELOX400 M1 PO (15:56)
[2016-09-19 23:00] VITALS: BP 124/68
--- NOTE | 2016-09-20 07:43 | PN- Housestaff ---
Subjective Follow-up For: 1.community-acquired pneumonia 2.positive troponins most likely 2/2 to type 2 [place] 3. generalized lethargy/weakness 4. H/o diarrhea s/p recent antbiotic usage Complaints: no complaints Tele-Events Since Last Visit: NSR Subjective: I have seen and examined the patient today morning.He was sitting on the chair, working [employer] [facility], he was very tender and swollen b/l LL , however right side >> left side and he couldnot place foot on the floor due to tenderness ( he has h/o gout and recently lasix was dc due ot hypotension), will get xray of the ankle to rule out any acute abnormalities, like fracture. Review of Systems Constitutional: Reports: see HPI. EENTM: Reports: no symptoms. Cardiovascular: Reports: peripheral edema. Denies: chest pain, orthopena, palpitations. Respiratory: Denies: cough, hemoptysis, orthopnea, short of breath. Gastrointestinal: Denies: abdominal pain, bloating, constipation, diarrhea. Genitourinary: Reports: no symptoms. Musculoskeletal: Reports: joint swelling. Denies: back pain, gout, joint pain. Skin: Denies: cysts, change in skin color, change in hair/nails, dryness. Neurological/Psychological: Reports: no symptoms. Objective Last 24 Hrs of Vital Signs/I&O Vital Signs Date Time Temp Pulse Resp B/P Pulse O2 O2 Flow FiO2 Ox Delivery Rate 09/20 0000 94 Nasal 2.0L Cannula 09/19 2300 97.8 89 18 124/68 94 Nasal 2.0L Cannula 09/19 2042 89 124/68 09/19 1530 97.4 85 20 120/60 99 Nasal Cannula 09/19 1347 Nasal 2.0L Cannula 09/19 0904 93 120/66 09/19 0903 93 120/66 09/19 0800 Nasal 2.0L Cannula 09/19 0800 97.6 93 20 120/66 95 Nasal Cannula Intake & Output 09/20 0800 09/20 0000 09/19 1600 Intake Total 240 800 Output Total 300 325 Balance -60 475 Intake, Oral 240 800 Output, Urine 300 325 Patient 96.162 kg Weight Physical Exam General Appearance: Alert, Oriented X3, Cooperative, No Acute Distress Skin: No Rashes, No Breakdown, No Significant Lesion HEENT: Atraumatic, PERRLA, EOMI Neck: Supple, No JVD, No thryomegaly Lymphatic: no LAd Cardiovascular: Regular Rate, Normal S1, Normal S2, No Murmurs Lungs: Clear to Auscultation, Normal Air Movement Abdomen: Normal Bowel Sounds, Soft, No Tenderness Neurological: Strength at 5/5 X4 Ext, Normal Tone, Sensation Intact, Cranial Nerves 3-12 NL Extremities: No Clubbing, No Cyanosis, No Edema, Normal Pulses Vascular: Normal Pulses Current Medications: Current Medications Sig/Sherrill Start time Last Medication Dose Route Stop Time Status Admin Acetaminophen 650 MG Q6P PRN 09/16 2145 AC 09/18 PO 2139 Allopurinol 300 MG DAILY 09/17 999 AC 09/19 PO 0904 Atorvastatin Calcium 20 MG 1700 09/17 1700 AC 09/19 PO 1725 Azithromycin 500 MG DAILY 09/19 999 DC Sodium Chloride 250 ML IV Azithromycin 500 MG 0200 09/19 0200 AC 09/20 Sodium Chloride 250 ML IV 0247 Ceftriaxone Sodium 1,000 MG 02009/19 020 AC 09/20 IV 0247 Diazepam 5 MG 4 TIMES/DAY 09/16 2199 AC 09/19 PO 2039 Heparin Sodium 25,000 UNIT Q24H 09/18 0230 DC 09/19 (Porcine) IV 0318 Sodium Chloride 500 ML Isosorbide 60 MG DAILY 09/17 999 AC 09/19 Mononitrate PO 0903 Isosorbide 60 MG QPM 09/16 2199 AC 09/19 Mononitrate PO 2042 Magnesium Oxide 400 MG DAILY 09/17 1000 AC 09/19 PO 0904 Metoprolol Succinate 50 MG DAILY 09/16 2199 AC 09/19 PO 0904 Paroxetine HCl 20 MG DAILY 09/17 999 AC 09/19 PO 0904 Trimethobenzamide HCl 200 MG ONCE ONE 09/20 0130 DC IM 09/20 0131 Last 24 Hrs of Lab/Onesimo Results Last 24 Hrs of Labs/Mics: Laboratory Tests 09/20/16 0630: Sodium Pending, Potassium Pending, Chloride Pending, Carbon Dioxide Pending, Anion Gap Pending, BUN Pending, Creatinine Pending, BUN/Creatinine Ratio Pending 09/19/16 2045: APTT Cancelled 09/19/16 0845: APTT 68 H Microbiology 09/19 1839 STOOL: Clostridium difficile Toxin A & B - COLB Lines/Diet/Fluids Restraints: none Assessment/Plan Assessment: This is a 86-year-old male with past medical history of TIA, CABG, congestive heart failure, gout, osteoarthritis, 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 He is status post completion of the entire antibiotic course. In the emergency department he received 1 dose of IV ceftazidime and vancomycin. On admission he had low sodium, low magnesium, initial lactic acid was 2.5 which trended down to 1.1.CT scan of the abdominal and pelvis did not show anything significant or any acute changes other than bibasilar lung infiltrate which most likely would be secondary to atelectasis and looks less likely to be pneumonia. On the night of 09/17/2016, he was found to have hypotension, tachycardia and a high-grade fever of 103.9, with worsening left basilar consolidation and mild pulmonary congestion. He also had some nonspecific ST-T wave changes which were present on the previous EKG. His initial set of troponins on admission were negative however on this episode, EKG and troponins were checked which trended as 2.74 >>>> 3.13>>>>2.74, he was started on IV ceftriaxone and azithromycin for CAP and started on Iv heparin for suspected nstemi v/s demand ischemia. He was seen by Dr. Mcdonald and the rise in troponin was thought to be secondary to demand ischemia. Fluid administration was continued, as chest x-ray did not show any overt interstitial edema in the setting of sepsis. Problem list along with assessment and plan #1 Weakness/lethargy/loss of appetite. * He had 75% on his dinner and 50% lunch yday more compared to no dinner and 25% of lunch on 09/27/2016, continued ensure 3 times a day as per nutrition. * We expect his diet to continue improving, as his medical condition improves. #2 Recent history of significant diarrhea status post antibiotic treatment. * Stool for C. difficilewas never sent. * No episodes of diarrhea after admission. #3 left lower lobe consolidation secondary to community-acquired pneumonia. * He had an episode of hypotension and tachycardia and was found to have a high- grade fever of 103.9 on the night of 09/27/2016, he remains afebrile since then. * Continue IV ceftriaxone and azithromycin - day 3 today, will discharge on avelox for a total of 7 days of antibiotics. * No growth on blood cultures. #4 Positive troponins 2/2 to demand ischemia. * off heparin * Patient also had mild pulmonary congestion on the chest x-ray , elevated proBNP however no overt interstitial edema, therefore not concerned of patient being into heart failure. * Continue to follow cardiology recommendations. #5 history of hypertension. * We will hold the lisinopril, lasix. * Will also hold Metoprolol for now as his blood pressure is running on the lower side. * Continue to reevaluate and for holding parameters prior to metoprolol. * Will resume above on discharge today. #6 Significant cardiac history. * Patient is on Imdur at home- dose confirm and changes to 1 and half tablet daily * We'll hold it for if low blood pressure. * resume on discharge. #7 hyponatremia, hypomagnesemia, hypokalemia. * Resolved. #8 b/l lower extremity swelling in addition right side swelling > left with tenderness * xray ankle ruled out any acute fracture. He will be d/c to [facility] (formerly [facility]) today. He will need to have follow up CT in 6 to 8 weeks form now to ensure resolutino of the pnuemonia. Problem List: 1. Community acquired pneumonia 2. Sepsis 3. Hypertension 4. Demand ischemia Pain Ratin Pain Location: right ankle on weight bearing. Pain Goal: Remain pain free Pain Plan: tyelnol Tomorrow's Labs & Rationales: d/c Discharge Plan Discharge Disposition: STR/NH Stable for Discharge? Yes Anticipated Discharge (Day): today If Discharged Today/In 24 Hrs: enter [facility] discharge ord, W-10/discharge paper done, DC summary done, CMR done
[2016-09-20 08:32] VITALS: BP 142/78
--- NOTE | 2016-09-20 10:05 | RADIOLOGY REPORT ---
EXAMINATION: XR ANKLE, RIGHT CLINICAL INFORMATION: Right ankle swelling. History of gout. COMPARISON: Right ankle radiographs 10/12/2014 TECHNIQUE: AP, lateral, and mortise views of the right ankle. FINDINGS: No acute fracture or subluxation. The ankle mortise appears intact. A small smooth corticated ossification is again noted adjacent to the medial malleolus which may be degenerative or secondary to an old avulsion fracture. Minor degenerative changes are again seen at the ankle and talonavicular joints. Small plantar calcaneal spur. Extensive arterial vascular calcifications are again seen. There is diffuse soft tissue swelling. IMPRESSION: No acute radiographic abnormality. Generalized soft tissue swelling and mild degenerative changes.
--- NOTE | 2016-09-20 11:38 | PN- Att Addend ---
Attending Addendum Attending Brief Note Patient seen and examined. Agree with resident's note. I spoke to the daughter at length. He was complaining of some right ankle swelling. I think the swelling is because we've held the Lasix for a day or 2 because he was dehydrated in the setting of an infection. Nonetheless we x-rayed the ankle which was negative. He says it doesn't feel like his usual acute gouty arthritis. He is an 86-year-old male with a past medical history of coronary artery disease in early 2001, is here with a community-acquired pneumonia as evidenced by dense consolidation on the CT chest with a small parapneumonic effusion. His fever curve has come down, he's feeling better. The plan is STR today with close outpatient follow-up. I amended the discharge summary to reflect the close follow-up and the follow-up of the ankle.
[2016-09-20 12:44] VITALS: BP 142/78
--- NOTE | 2016-09-20 15:55 | ECHOCARDIOGRAM REPORT ---
YARELI SONG Age: 86 : 1930 Gender: M Exam Date: 09/20/2016 10:35 Exam Location: [facility] Ht (in): 67 Wt (lb): 241 BSA: 2.32 BP: 100 / 52 Ordering Physician: IKER CR MD Referring Physician: IKER CR MD Technologist: Tony Leyva [facility] Room Number: 174-01 Indications: SHORTNESS OF BREATH Rhythm: Sinus Technical Quality: Fair FINDINGS Left Ventricle Normal size left ventricle. Mild to moderate concentric left ventricular hypertrophy. Borderline reduced global left ventricular systolic function. Borderline normal left ventricular ejection fraction estimated at 50%. Abnormal relaxation filling pattern of the left ventricle for age (stage 1 diastolic dysfunction). Right Ventricle Moderate right ventricular dilatation. Right Atrium Normal right atrial size. Left Atrium Mild to moderate left atrial dilatation. Mitral Valve Mild mitral annular calcification. Mitral valve mildly thickened. Trace mitral regurgitation. Aortic Valve Aortic valve not well visualized. Diffuse mild to moderate thickening of the aortic valve cusps with reduced excursion. Mild aortic stenosis. Trace aortic regurgitation. Tricuspid Valve Structurally normal tricuspid valve. Trace tricuspid regurgitation. Right ventricular systolic pressure estimated at 31 mmHg. Pulmonic Valve Pulmonic valve not well visualized, grossly normal. No pulmonic regurgitation. Pericardium No pericardial effusion.` Great Vessels Upper normal size aortic root. Mildly dilated proximal ascending aorta (tube). Normal size inferior vena cava. CONCLUSIONS Normal size left ventricle. Mild to moderate concentric left ventricular hypertrophy. Borderline reduced global left ventricular systolic function. Borderline normal left ventricular ejection fraction estimated at 50%. Abnormal relaxation filling pattern of the left ventricle for age (stage 1 diastolic dysfunction). Moderate right ventricular dilatation. Normal right atrial size. Mild to moderate left atrial dilatation. Trace mitral regurgitation. Mild aortic stenosis. Trace aortic regurgitation. Trace tricuspid regurgitation. Right ventricular systolic pressure estimated at 31 mmHg. Upper normal size aortic root. Mildly dilated proximal ascending aorta (tube). Eyal Mcdonald M.D. (Electronically Signed) Final Date: 20 September 2016 15:55 MEASUREMENTS (Male / Female) Normal Values 2D ECHO LV Diastolic Diameter PLAX 5.1 cm 4.2 - 5.9 / 3.9 - 5.3 cm LV Systolic Diameter PLAX 4.2 cm 2.1 - 4.0 cm LV Fractional Shortening PLAX 17.6 % 25 - 46 % LV Ejection Fraction 2D Teich 36.5 % IVS Diastolic Thickness 1.4 cm LVPW Diastolic Thickness 1.1 cm LV Relative Wall Thickness 0.5 LVOT Diameter 2.1 cm Aortic Root Diameter 3.6 cm LA Systolic Diameter LX 4.6 cm 3.0 - 4.0 / 2.7 - 3.8 cm LV Ejection Fraction MOD BP 54.1 % >= 55 % LV Diastolic Length 4C 9.5 cm 6.9 - 10.3 cm LV Diastolic Area 4C 48.1 cm LV Diastolic Volume MOD 4C 200.0 cm LV Ejection Fraction MOD 4C 50.0 % LV Stroke Volume MOD 4C 100.0 cm LV Systolic Length 4C 8.0 cm LV Systolic Area 4C 30.7 cm LV Systolic Volume MOD 4C 100.0 cm LV Ejection Fraction MOD 2C 57.1 % LV Diastolic Volume 4C AL 207.4 cm 85 - 139 / 69 - 109 cm LV Systolic Volume 4C AL 100.0 cm LV Ejection Fraction 4C AL 51.8 % LV Stroke Volume 4C AL 107.4 cm LV Ejection Fraction 2C AL 57.3 % LA Volume 95.0 cm 18 - 58 / 22 - 52 cm Ascending Aorta Diameter 3.7 cm DOPPLER AV Peak Velocity 226.0 cm/s AV Peak Gradient 20.4 mmHg AV Mean Velocity 167.0 cm/s AV Mean Gradient 13.0 mmHg AV Velocity Time Integral 49.2 cm AI Deceleration [place] 265.0 cm/s AI Peak Velocity 338.5 cm/s AI Pressure Half Time 387.5 ms AI Peak Gradient 45.8 mmHg LVOT Peak Velocity 91.0 cm/s LVOT Peak Gradient 3.3 mmHg LVOT Mean Velocity 55.8 cm/s LVOT Mean Gradient 2.0 mmHg LVOT Velocity Time Integral 20.3 cm LVOT Stroke Volume 70.3 cm AV Area Cont Eq vti 1.4 cm AV Area Cont Eq pk 1.4 cm MV Peak Velocity 110.0 cm/s MV Peak Gradient 4.8 mmHg MV Mean Velocity 67.6 cm/s MV Mean Gradient 2.0 mmHg Mitral E Point Velocity 67.1 cm/s Mitral A Point Velocity 100.8 cm/s Mitral E to A Ratio 0.7 MV PHT Velocity 98.9 cm/s MV Deceleration [place] 409.0 cm/s MV Pressure Half Time 72.5 ms MV Area PHT 3.0 cm MV Deceleration Time 134.0 ms TR Peak Velocity 255.0 cm/s TR Peak Gradient 26.0 mmHg PV Peak Velocity 103.0 cm/s PV Peak Gradient 4.2 mmHg PV Mean Velocity 75.2 cm/s PV Mean Gradient 3.0 mmHg PV Velocity Time Integral 20.1 cm LV E' Lateral Velocity 6.9 cm/s Mitral E to LV E' Lateral Ratio 9.7 LV E' Septal Velocity 6.8 cm/s Mitral E to LV E' Septal Ratio 9.8
== END 2016-09-20 13:09 | DRG 194 ==
LOC: ERH 11:55 → ENPENDDIS 17:03 → ERHI 17:03 → 1NO 17:03
PROVIDERS: Emergency Medicine; Internal Medicine; Internal Medicine Hematology & Oncology; ADMIT Internal Medicine
DX: J18.9 Pneumonia, unspecified organism (principal); E87.1 Hypo-osmolality and hyponatremia; E87.2 Acidosis; E83.42 Hypomagnesemia; I24.8 Other forms of acute ischemic heart disease; I10 Essential (primary) hypertension; R53.83 Other fatigue; G57.60 Lesion of plantar nerve, unspecified lower limb; R19.7 Diarrhea, unspecified; E87.6 Hypokalemia; I25.10 Atherosclerotic heart disease of native coronary artery without angina pectoris
CPT/HCPCS: 1NSP; 36415; 73600-RT; 74177; 81001; 82436; 87040; 87070; 87071; 87804; 87804-59; 90662; 93005; 93010; 93306; 96374; 97001-GP; 97110-GO; 97116-GO; 97161-GP; 97162-GP; 97530-GO; J0456; J0696; J0713; J1644; J3250; J3370; J7040; J7042; Q9957

== ENCOUNTER 2017-11-11 15:49 | Inpatient (IN) | payer OTHER, MEDICARE ==
[~2017-11-11] VITALS: Ht 172.7 cm; Wt 114.3 kg
[~2017-11-11 15:49] MED LIST changes: +ACETAMINOPHEN500 M4 PO; +ALLOPURINOL300 M1 PO; -ALLOPURINOL300 MG PO; -ATORVASTATIN CA20 MG PO; +AVELOX400 M1 PO; +DILTIAZEM 24HR120 MG PO; +ELIQUIS5 M1 PO; +HYDROCODON-ACE1 EAC3 PO; +ISOSORBIDE MONO30 M1 PO; +LASIX20 M1 PO; -LASIX20 MG PO; +LIPITOR20 M2 PO; -LISINOPRIL10 MG PO; -METOPROLOL SUC100 MG PO; +METOPROLOL SUCC50 M2 PO; +METOPROLOL TART25 M1 PO; +MIRALAX119 GM PO; +PAROXETINE HCL20 M1 PO; -PAROXETINE20 MG PO; +PERCOCET 5-3251 EACH PO; +PREDNISONE10 M2 PO; +PREDNISONE2.5 M1 PO; +PREDNISONE5 M1 PO; +PRINIVIL10 M1 PO; +RANEXA500 M1 PO; +SPIRONOLACTONE25 M1 PO; +VITAMIN C1000 M4 PO
--- NOTE | 2017-11-11 16:01 | ED DYSPNEA/ASTHMA COMPLAINT ---
History of Present Illness General Chief Complaint: Dyspnea (COPD, CHF, Other) Stated Complaint: WORSENING SOB AND HYPOXIA Source: patient, old records, EMS Exam Limitations: no limitations Vital Signs & Intake/Output Vital Signs & Intake/Output Vital Signs Date Time Temp Pulse Resp B/P B/P Pulse O2 O2 Flow FiO2 Mean Ox Delivery Rate 11/11 2244 97.4 108 18 104/64 96 Nasal 3.0L Cannula 11/11 2156 96 Nasal 2.0L Cannula 11/11 2050 97.2 108 22 101/70 95 Nasal 2.0L Cannula 11/11 2018 96 Nasal 5.0L Cannula 11/11 183 97.6 110 20 110/63 97 Nasal 3.0L Cannula 11/11 1600 97.5 104 18 104/63 97 Room Air Allergies Coded Allergies: NO KNOWN ALLERGIES (12/22/14) Triage Note: RECEIVED 87 YO MALE BIBA FROM HOME WITH C/O WORSENING SOB X ONE WEEK WITH INCREASED LOWER EXTREMITY EDEMA. ACCORDING TO REPORT, PT IS ON 2.5 L O2 VIA N/C. O2 WAS INCREASED TO 4 LPM AND O2 SATS WERE 93% ON AUTOMATION CLERK ARRIVALO2 SATS PRESENTLY 97% ON 6L O2 VIA N/C. PT RECEIVED ONE COMBI MED NEB TX BY PARAMEDICS. Triage Nurses Notes Reviewed? 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 Patient is normally on 2-1/2 L at home, family has had increased to 4 L he was medicated with a breathing treatment in route which she states did not help. He denies chest pain. His shortness of breath is worse with lying flat better with sitting forward. No recent changes in his medication he is not on any blood thinners (Bonnie JARA,Rakesh) Reconcile Medications Acetaminophen 500 MG TABLET 2 TAB PO Q8 PAIN (Reported) Allopurinol 300 MG TABLET 1 TAB PO DAILY GOUT (Reported) Ascorbic Acid (Vitamin C) 1,000 MG TABLET 1 TAB PO DAILY VITAMIN SUPPORT ( Reported) Atorvastatin Calcium (Lipitor) 20 MG TABLET 1 TAB PO QPM CHOLESTEROL ( Reported) Diazepam 5 MG TABLET 1 TAB PO Q6-PRN PRN SPASMS (Reported) Diazepam 5 MG TABLET 1 TAB PO QPM SLEEP (Reported) Diltiazem HCl (Diltiazem 24HR ER) 120 MG CAP.ER.24H 1 CAP PO DAILY HEART ( Reported) Furosemide (Lasix) 20 MG TABLET 3 TAB PO DAILY WATER RETENTION (Reported) Metoprolol Tartrate 25 MG TABLET 3 TAB PO BID HEART (Reported) Paroxetine HCl 20 MG TABLET 1 TAB PO DAILY ANXIETY (Reported) Polyethylene Glycol 3350 (Miralax) 17 GRAM/DOSE POWDER 17 GM PO DAILY PRN CONSTIPATION (Reported) mix with water, juice, soda, coffee or tea Prednisone 2.5 MG TABLET 1 TAB PO DAILY STEROID (Reported) Ranolazine (Ranexa) 500 MG TAB.ER.12H 1 TAB PO BID HEART (Reported) (Analisa THOMAS,Tulio Silveira) Past History Travel History Traveled to [place] past 21 day No Medical History Any Pertinent Medical History? see below for history Neurological: TIA EENT: NONE Cardiovascular: AFIB, [place], TRIPLE BYPASS, TIA CHF, CIRCUMFLEX CLOGGED ARTERY, HTN Respiratory: pneumonia Gastrointestinal: diverticulitis Hepatic: NONE Renal: NONE Musculoskeletal: osteoarthritis Psychiatric: NONE Endocrine: NONE Blood Disorders: NONE Cancer(s): NONE FOOD WRITER/Reproductive: NONE History of MRSA: No History of VRE: No History of CDIFF: No Surgical History Surgical History: CABG (1985 X 3) Psychosocial History Who do you live with Patient/Self Services at Home None What is your primary language Senegalese Family History Family History, If Any: FATHER FH: CAD (coronary artery disease) Hx Contributory? No (Rakesh Redd) Review of Systems Review of Systems Constitutional: Reports: see HPI. Comments Review of systems: See HPI, All other systems negative. Constitutional, no chills no fever, no malaise HEENT: no sore throat no congestion, no ear pain Cardiovascular: No chest pain , no palpitation Skin: no rashes, no change in skin Respiratory: dyspneacough no sputum no hemoptysis GI: No nausea no vomiting, no diarrhea, : No dysuria No hematuria, no frequency Muscle skeletal: No joint pain, no back pain, no neck pain, Neurologic: , no headache Psych: No stress Heme/endocrine: No bruising Immunology: No lymphadenopathy (Rakesh Redd) Physical Exam Physical Exam General Appearance: well developed/nourished, alert, awake Respiratory: diminished breath sounds b/l bases Comments: Well-developed well-nourished person in no acute distress HEENT: Normal EENT exam; PERRL, EOMI. HEAD is atraumatic. moist mucous membranes. Neck: Supple, normal range of motion Back: Full range of motion Cardiovascular: Regular rate and rhythms no murmur Respiratory: Chest nontender.There were no bony deformities, no asymmetry. No respiratory distress. Patient speaking in full complete sentences. Diminished breath sounds right lung base Abdomen: Soft, nontender nondistended, no appreciable organomegaly. Normal bowel sounds. No rebound/guarding, No appreciable enlargement of the abdominal aorta, No ascites. Extremity:3+ b/l le edema, full range of motion of extremities, 5 out of 5 strength noted to bilateral upper and lower extremities Neuro: Alert oriented x3, motor sensory normal, There were no obvious focal neurologic abnormalities. Skin: No appreciable rash on exposed skin, skin is warm and dry. Psych: Mood and affect is normal, memory and judgment is normal. Core Measures ACS in differential dx? Yes CVA/TIA Diagnosis No Sepsis Present: No Sepsis Focused Exam Completed? No (Rakesh Redd) Progress Differential Diagnosis: asthma, AMI, bronchitis, CHF, COPD, pericarditis, pulmonary embolism, pneumonia, pneumothorax, unstable angina Plan of Care: Orders Procedure Date/time Status Heart Healthy Diet 11/12 B Active TSH REFLEX 11/12 599 Active CBC WITHOUT DIFFERENTIAL 11/12 599 Active BASIC ELECTROLYTES PLUS BUN&CR 11/12 599 Active Regular Diet 11/11 D Complete TROPONIN LEVEL 11/11 2299 Active EKG 11/11 2299 Active Teach/Educate 11/11 2153 Active Pain Treatment and Response 11/11 2153 Active Nutritional Intake, Monitor 11/11 2153 Active Isolation 11/11 2153 Active Patient Care Conference 11/11 2153 Active STREP PNEUMO URINARY ANTIGEN 11/11 2034 Complete LEGIONELLA URINARY ANTIGEN 11/11 2034 Complete URINE OSMOLALITY 11/11 2034 Complete URINE LYTES, SPOT 11/11 2034 Complete URINALYSIS 11/11 2034 Complete Pathway - chart 11/11 2033 Active House Staff 11/11 2033 Active SPECIMEN TO BE OBTAINED 11/11 2033 Active Intake & Output 11/11 1855 Active Patient Data 11/11 1839 Active OXYGEN SETUP (GEN) 11/11 180 Active Saline Lock 11/11 180 Active Admit to inpatient 11/11 1808 Active Vital Signs 11/11 1808 Active Activity/Ambulation 11/11 180 Active Code Status 11/11 1808 Active Add-on Test (ER Only) 11/11 1744 Active TOTAL IRON BINDING CAPACITY 11/11 1722 Complete SERUM OSMOLALITY 11/11 1722 Complete LACTIC ACID 11/11 1722 Complete SERUM IRON 11/11 1722 Complete BLOOD CULTURE 11/11 1656 Active Telemetry/Integrated Campaign Manager 11/11 1611 Active TROPONIN LEVEL 11/11 1611 Complete COMPREHENSIVE METABOLIC PANEL 11/11 1611 Complete CBC WITHOUT DIFFERENTIAL 11/11 1611 Complete B-TYPE NATRIURETIC PEP (BNP) 11/11 1611 Complete EKG 11/11 1601 Active Lab Add-on Test 11/11 UNK Active Weight 11/11 UNK Active VTE Mechanical Prophylaxis 11/11 UNK Active Vital Signs 11/11 UNK Complete Intake & Output 11/11 UNK Complete Hemoccult 11/11 UNK Active Activity/Ambulation 11/11 UNK Active PHYSICIAN CONSULT 11/11 UNK Active ECHOCARDIOGRAM 11/11 UNK Active Current Medications Sig/Sherrill Start time Last Medication Dose Stop Time Status Admin Azithromycin 500 MG 1800 11/12 1800 AC (Zithromax) Dextrose/Water 250 ML (D5W) Ceftriaxone Sodium 1,000 MG 1800 11/12 1800 AC (Rocephin) Furosemide 40 MG 1700 11/12 1700 AC (Lasix) Allopurinol 300 MG DAILY 11/12 1000 AC (Zyloprim) Diltiazem HCl 120 MG DAILY 11/12 1000 AC (Cardizem CD) Paroxetine HCl 20 MG DAILY 11/12 1000 AC (Paxil) Prednisone 2.5 MG DAILY 11/12 1000 AC (Prednisone) Heparin Sodium 5,000 UNIT Q8 11/11 220 CAN (Porcine) Heparin Sodium 5,000 UNIT Q8 11/11 220 AC (Porcine) Metoprolol Tartrate 75 MG BID 11/11 2199 CAN (Lopressor) Metoprolol Tartrate 75 MG BID 11/11 220 AC (Lopressor) Ranolazine 500 MG BID 11/11 2199 AC (Ranexa) Diazepam 5 MG Q6-PRN PRN 11/11 2144 AC (Valium) Furosemide 40 MG ONCE ONE 11/11 2129 CAN (Lasix) 11/11 2130 Methylprednisolone 20 MG ONCE ONE 11/11 1744 CAN (Solumedrol) 11/11 1745 Laboratory Tests 11/11/172114: Urine Color YEL, Urine Clarity CLEAR, Urine pH 6.5, Ur Specific Union 1.010, Urine Protein NEG, Urine Ketones NEG, Urine Nitrite NEG, Urine Bilirubin NEG, Urine Urobilinogen 0.2, Ur Leukocyte Esterase NEG, Ur Microscopic EXAM NOT REQUIRED, Urine Hemoglobin NEG, Urine Glucose NEG 11/11/172114: Urine Osmolality 186 L, Ur Random Creatinine 38.3, Ur Random Sodium 11 L, Ur Random Potassium 26.3, Fraction Sodium Excret 0.2 11/11/172035: Urine Osmolality Cancelled 11/11/171721: Anion Gap 11, Estimated GFR > 60, BUN/Creatinine Ratio 16.4, Glucose 108 H, Serum Osmolality 278 L, Lactic Acid 1.5, Calcium 8.6, Iron 34 L, TIBC 356, Total Bilirubin 0.7, AST 11 L, ALT 22, Alkaline Phosphatase 99, Troponin I < 0.01, Ljd-C-Pbsrhdatuni Pept 3950 H, Total Protein 5.9 L, Albumin 3.3 L, Globulin 2.6, Albumin/Globulin Ratio 1.3, CBC w Diff NO MAN DIFF REQ, RBC 2.85 L, MCV 97.4 H, MCH 31.5 H, MCHC 32.3 L, RDW 17.8 H, MPV 9.5, Gran % 75.3 H, Lymphocytes % 11.4 L, Monocytes % 12.6 H, Eosinophils % 0.5, Basophils % 0.2, Absolute Granulocytes 8.3 H, Absolute Lymphocytes 1.3, Absolute Monocytes 1.4 H, Absolute Eosinophils 0.1, Absolute Basophils 0 Microbiology 11/11 2114 URINE ROUT: Legionella Antigen - COMP 11/11 2114 URINE ROUT: Streptococcus pneumoniae Antigen (M - COMP 11/11 1814 BLOOD: Blood Culture - RECD 11/11 1721 BLOOD: Blood Culture - RECD Labs ordered old records reviewed case discussed with Dr. whyte, speaking full complete sentences at this time H/H AT [facility] I discussed the patient and his daughter at length all of his labs IV antibiotics ordered, Lasix 20 mg IV ordered. Call placed to cardiology I spoke with Dr. Hudson will admit to telemetry Diagnostic Imaging: Viewed by Me: Radiology Read. Discussed w/RAD: Radiology Read. Radiology Impression: PATIENT: YARELI SONG PRESENT AGE: 87 PATIENT ACCOUNT NO: [id number] : 31 LOCATION: [facility] ORDERING PHYSICIAN: Rakesh JARA SERVICE DATE: 11/11/17 EXAM TYPE: RAD - XRY-PORTABLE CHEST XRAY EXAMINATION: XR PORTABLE CHEST CLINICAL INFORMATION: Dyspnea; question congestive heart failure or pneumonia. COMPARISON : Prior chest radiographs, most recently 08/23/2017. TECHNIQUE: Portable frontal view of the chest was obtained. FINDINGS: There is stable cardiomegaly. Lung volumes are somewhat low. There is been a prior median sternotomy. There is atherosclerotic change of the aortic knob. There is no significant pulmonary vascular congestion. Mild right perihilar and basilar airspace disease and increased central interstitial markings are suspected. There is a small right pleural effusion, with evaluation limited by body habitus. No pneumothorax is seen. There is no acute osseous abnormality. IMPRESSION: 1. A mild right perihilar and basilar infiltrate is suspected. This could be more fully evaluated with repeat 2 view chest radiographs at a greater depth of inspiration. Recommend short-term follow-up chest radiographs to ensure clearance and exclude the possibility of underlying obstructive process. 2. There is a small right pleural effusion. 3. Examination limited by low lung volumes and body habitus. DICTATED BY: Greg Moulton MD DATE/TIME DICTATED:11/11 STORAGE CONSULTANT:BERT DATE/TIME TRANSCRIBED:11/11/171636 CONFIDENTIAL, DO NOT COPY WITHOUT APPROPRIATE AUTHORIZATION. <Electronically signed in Other Vendor System> SIGNED BY: Greg Moulton MD 11/11/17 1651 Initial ED EKG: alfuttter at 100, nonspec st sg changes Prior EKG: unchanged Rhythm Strip: atrial flutter (Bonnie JARA,Rakesh) Departure Departure Time of Disposition: 1831 Disposition: STILL A PATIENT Condition: Stable Clinical Impression Primary Impression: Pneumonia Secondary Impressions: CHF (congestive heart failure) Referrals: Marti Cardona MD (PCP/Family) Departure Forms: Customer Survey General Discharge Information Admission Note Spoke With: Osvaldo THOMAS,Celso Documentation of Exam: Documentation of any treatments & extenuating circumstances including Concerns Regarding Discharge (functional status, medication knowledge or non-compliance, living conditions, etc.) that warrant an admission rather than observation: CARDIO CONSULT, IV DIURESIS, IV ABX, TREND LABS, PREMATURE DISCHARGE WOULD BE MEDICALLY HARMFUL (Rakesh Redd) PA/COMMUNITY RESOURCE OFFICER Co-Sign Statement Statement: ED Attending supervision documentation- [x] I saw and evaluated the patient. I have also reviewed all the pertinent lab results and diagnostic results. I agree with the findings and the plan of care as documented in the PA's/COMMUNITY RESOURCE OFFICER's documentation. pt with pneumonia, merits 02 support, iv abx [] I have reviewed the ED Record and agree with the PA's/COMMUNITY RESOURCE OFFICER's documentation. [] Additions or exceptions (if any) to the PAs/COMMUNITY RESOURCE OFFICER's note and plan are summarized below: [] (Analisa THOMAS,Tulio Silveira) Critical Care Note Critical Care Note Critical Care Time: non-applicable (Rakesh Redd)
--- NOTE | 2017-11-11 16:51 | RADIOLOGY REPORT ---
EXAMINATION: XR PORTABLE CHEST CLINICAL INFORMATION: Dyspnea; question congestive heart failure or pneumonia. COMPARISON: Prior chest radiographs, most recently 08/23/2017. TECHNIQUE: Portable frontal view of the chest was obtained. FINDINGS: There is stable cardiomegaly. Lung volumes are somewhat low. There is been a prior median sternotomy. There is atherosclerotic change of the aortic knob. There is no significant pulmonary vascular congestion. Mild right perihilar and basilar airspace disease and increased central interstitial markings are suspected. There is a small right pleural effusion, with evaluation limited by body habitus. No pneumothorax is seen. There is no acute osseous abnormality. IMPRESSION: 1. A mild right perihilar and basilar infiltrate is suspected. This could be more fully evaluated with repeat 2 view chest radiographs at a greater depth of inspiration. Recommend short-term follow-up chest radiographs to ensure clearance and exclude the possibility of underlying obstructive process. 2. There is a small right pleural effusion. 3. Examination limited by low lung volumes and body habitus.
[2017-11-11 17:35] LABS: ABSOLUTE BASOPHIL COUNT 0 /CUMM (0.0-0.2); ABSOLUTE EOSINOPHIL COUNT 0.1 /CUMM (0.0-0.7); ABSOLUTE GRANULOCYTE CT 8.3 /CUMM (1.4-6.5); ABSOLUTE LYMPH COUNT 1.3 /CUMM (1.2-3.4); ABSOLUTE MONOCYTE COUNT 1.4 /CUMM (0.10-0.60); BASOPHIL % 0.2 % (0.0-2.0); EOSINOPHIL % 0.5 % (0-5); GRANULOCYTE % 75.3 % (42.2-75.2); HEMATOCRIT 27.8 % (42-52); MEAN CORPUSCULAR HGB 31.5 PG (27.0-31.0); MEAN CORPUSCULAR HGB CONC 32.3 G/DL (33.0-37.0); MEAN CORPUSCULAR VOLUME 97.4 FL (80.0-94.0); MEAN PLATELET VOLUME 9.5 FL (7.4-10.4); PLATELET COUNT 175 /CUMM (130-400); RBC DISTRIBUTION WIDTH 17.8 % (11.5-14.5); RED BLOOD CELL CT 2.85 /CUMM (4.70-6.10)
--- NOTE | 2017-11-11 20:03 | History & Physical ---
Efrem THOMAS,[facility] 11/11/172001: General Information and HPI MD Statement: I have seen and personally examined YARELI PETERS and documented this H& P. The patient is a 87 year old M who presented with a patient stated chief complaint of [SOB]. Source of Information: patient Exam Limitations: no limitations History of Present Illness: 87-year-old male with a past medical history of A. fib, atrial flutter, [place], CAD status post three-vessel CABG, TIA, CHF, hypertension, Do's neuroma, presenting for worsening shortness of breath and leg swelling. The patient states that he has a history of feet swelling for the past couple weeks however states that today is the worst it's ever been. States that the feet swelling have now progressed up his leg. Patient states that he is also been having shortness of breath for 1 week. States that he sleeps in a recliner baseline however he has been sleeping at a steeper angle for the past week. States that he was seen by his visiting nurse today who listened to his long-standing thought that he may have had pneumonia. He is currently on 3 L of oxygen at baseline however he has been using 3.5-4 L due to his increased shortness of breath. Currently in the emergency department he states that he is not having shortness of breath because he had DuoNeb treatment in the ambulance onset brought to the hospital. States that he also has a yellow productive cough and decreased appetite. The patient states that he last had a cardiac cath in September. He was previously on anticoagulation for his A. fib but stopped due to bleeding. He was also previously on digoxin however has to stop due to digoxin poisoning. Patient denies any headaches, fevers, chills, chest pain, nausea, vomiting, abdominal pain, changes in elimination, and states that he does not have any issues swallowing/dysphagia. Allergies/Medications Allergies: Coded Allergies: NO KNOWN ALLERGIES (12/22/14) Home Med list Acetaminophen 500 MG TABLET 2 TAB PO Q8 PAIN (Reported) Allopurinol 300 MG TABLET 1 TAB PO DAILY GOUT (Reported) Ascorbic Acid (Vitamin C) 1,000 MG TABLET 1 TAB PO DAILY VITAMIN SUPPORT ( Reported) Atorvastatin Calcium (Lipitor) 20 MG TABLET 1 TAB PO QPM CHOLESTEROL ( Reported) Diazepam 5 MG TABLET 1 TAB PO Q6-PRN PRN SPASMS (Reported) Diazepam 5 MG TABLET 1 TAB PO QPM SLEEP (Reported) Diltiazem HCl (Diltiazem 24HR ER) 120 MG CAP.ER.24H 1 CAP PO DAILY HEART ( Reported) Furosemide (Lasix) 20 MG TABLET 3 TAB PO DAILY WATER RETENTION (Reported) Metoprolol Tartrate 25 MG TABLET 3 TAB PO BID HEART (Reported) Paroxetine HCl 20 MG TABLET 1 TAB PO DAILY ANXIETY (Reported) Polyethylene Glycol 3350 (Miralax) 17 GRAM/DOSE POWDER 17 GM PO DAILY PRN CONSTIPATION (Reported) mix with water, juice, soda, coffee or tea Prednisone 2.5 MG TABLET 1 TAB PO DAILY STEROID (Reported) Ranolazine (Ranexa) 500 MG TAB.ER.12H 1 TAB PO BID HEART (Reported) Past History Travel History Traveled to [place] past 21 day No Medical History Neurological: TIA EENT: NONE Cardiovascular: AFIB, [place], TRIPLE BYPASS, TIA CHF, CIRCUMFLEX CLOGGED ARTERY, HTN Respiratory: pneumonia Gastrointestinal: diverticulitis Hepatic: NONE Renal: NONE Musculoskeletal: osteoarthritis Psychiatric: NONE Endocrine: NONE Blood Disorders: NONE Cancer(s): NONE SHREDDED FILLER CIG[employer] MAKER MACHINE/Reproductive: NONE History of MRSA: No History of VRE: No History of CDIFF: No Surgical History Surgical History: CABG (1985 X 3) Past Family/Social History Family History Relations & Conditions if any FATHER FH: CAD (coronary artery disease) Psychosocial History Services at Home: None Review of Systems Review of Systems Constitutional: Reports: see HPI (decerase appetite). Cardiovascular: Reports: no symptoms. Respiratory: Reports: cough, short of breath. GI: Reports: no symptoms. Genitourinary: Reports: no symptoms. Musculoskeletal: Reports: no symptoms. Exam & Diagnostic Data Last 24 Hrs of Vital Signs/I&O Vital Signs Date Time Temp Pulse Resp B/P B/P Pulse O2 O2 Flow FiO2 Mean Ox Delivery Rate 11/12 0600 97.9 70 18 98/62 94 11/12 0125 109 104/62 11/11 2244 97.4 108 18 104/64 96 Nasal 3.0L Cannula 11/11 2156 96 Nasal 2.0L Cannula 11/11 2050 97.2 108 22 101/70 95 Nasal 2.0L Cannula 11/11 2017 96 Nasal 5.0L Cannula 11/11 1830 97.6 110 20 110/63 97 Nasal 3.0L Cannula 11/11 1600 97.5 104 18 104/63 97 Room Air Intake & Output 11/12 1600 11/12 0800 11/12 0000 Intake Total 250 Output Total 650 Balance -650 250 Intake, IV 250 Output, Urine 650 Patient 248 lb Weight Weight Bed scale Measurement Method Physical Exam General Appearance Alert, Oriented X3, Cooperative HEENT no jvd Cardiovascular systolic murmur Lungs decrease lung sounds. no RLB sounds. Abdomen Normal Bowel Sounds, Soft, No Tenderness Extremities 3+ LE edema to knees Vascular 2+ pedal and riadl pulses Last 24 Hrs of Labs/Onesimo: Laboratory Tests 11/12/17 0615: Sodium Pending, Potassium Pending, Chloride Pending, Carbon Dioxide Pending, Anion Gap Pending, BUN Pending, Creatinine Pending, BUN/Creatinine Ratio Pending , Troponin I Pending, TSH &T3 &Free T4 Intrp Pending, CBC w Diff Pending, WBC Pending, RBC Pending, Hgb Pending, Hct Pending, MCV Pending, MCH Pending, MCHC Pending, RDW Pending, Plt Count Pending, MPV Pending, Gran % Pending, Lymphocytes % Pending, Monocytes % Pending, Eosinophils % Pending, Basophils % Pending, Absolute Granulocytes Pending, Absolute Lymphocytes Pending, Absolute Monocytes Pending, Absolute Eosinophils Pending, Absolute Basophils Pending 11/11/178: Troponin I < 0.01 11/11/172114: Urine Color YEL, Urine Clarity CLEAR, Urine pH 6.5, Ur Specific Kathleen 1.010, Urine Protein NEG, Urine Ketones NEG, Urine Nitrite NEG, Urine Bilirubin NEG, Urine Urobilinogen 0.2, Ur Leukocyte Esterase NEG, Ur Microscopic EXAM NOT REQUIRED, Urine Hemoglobin NEG, Urine Glucose NEG 11/11/172114: Urine Osmolality 186 L, Ur Random Creatinine 38.3, Ur Random Sodium 11 L, Ur Random Potassium 26.3, Fraction Sodium Excret 0.2 11/11/172035: Urine Osmolality Cancelled 11/11/17 1722: Anion Gap 11, Estimated GFR > 60, BUN/Creatinine Ratio 16.4, Glucose 108 H, Serum Osmolality 278 L, Lactic Acid 1.5, Calcium 8.6, Iron 34 L, TIBC 356, Total Bilirubin 0.7, AST 11 L, ALT 22, Alkaline Phosphatase 99, Troponin I < 0.01, Hlr-H-Yapcsluixdq Pept 3950 H, Total Protein 5.9 L, Albumin 3.3 L, Globulin 2.6, Albumin/Globulin Ratio 1.3, CBC w Diff NO MAN DIFF REQ, RBC 2.85 L, MCV 97.4 H, MCH 31.5 H, MCHC 32.3 L, RDW 17.8 H, MPV 9.5, Gran % 75.3 H, Lymphocytes % 11.4 L, Monocytes % 12.6 H, Eosinophils % 0.5, Basophils % 0.2, Absolute Granulocytes 8.3 H, Absolute Lymphocytes 1.3, Absolute Monocytes 1.4 H, Absolute Eosinophils 0.1, Absolute Basophils 0 Microbiology 11/11 2114 URINE ROUT: Legionella Antigen - COMP 11/11 2114 URINE ROUT: Streptococcus pneumoniae Antigen (M - COMP 11/11 181 BLOOD: Blood Culture - RECD 11/11 172 BLOOD: Blood Culture - RECD Assessment/Plan Assessment: A: 87-year-old male with a past medical history of A. fib, atrial flutter, [place], CAD status post three-vessel CABG, TIA, CHF, hypertension, Do's neuroma, presenting for worsening shortness of breath and leg swelling found to have possible CAP. P: #acute on chronic resp failure 2/2 to ?pneumonia vs chf WBC 11 trops <.01x2 ProBNP 3950 -tops ekg @ 615 - Daily weights, strict I/O's -Follow-up lower respiratory culture, blood cultures X2, Legionella and strep pneumo antigens -Continue ceftriaxone, azithromycin -Follow-up echo and cardiology consult -LE dopplers to rule out DVT #Chronic anemia H/H9/27.8 Iron 34, TIBC 356, -Currently at baseline, continue to monitor #History of A. fib/flutter -ranolazine for CP #chronic hyponatremia Na 130 (baseline 135) -cont to monitor #Wound/irritation of buttock -pt and family agree to see the pulm #chf -cont lasixn #arhtiritis of hands -cont prednisone, allopurinol #mental health -cont paroxetine, Valium #DVT ppx Hep SC #Full code. As Ranked By This Provider Problem List: 1. CHF (congestive heart failure) 2. Chronic anemia 3. Pneumonia Core Measures/Misc (05/26) Acute Coronary Syndrome ACS Diagnosis: No Congestive Heart Failure Congestive Heart Failure Diagnosis Yes Cerebrovascular Accident CVA/TIA Diagnosis: No VTE (View Protocol) VTE Risk Factors Acute Medical Illness No Mechanical VTE Prophylaxis d/t Other No VTE Pharm Prophylaxis d/t Other Sepsis (View protocol) Sepsis Present: No Rodo Ha 11/11/17 0555: Resident Review Statement Resident Statement: examined this patient, amended to note Other Findings: Ms Peters is an 87-year-old man with a past history of atrial fibrillation, on [place], coronary artery disease, triple bypass in , TIA, CHF, osteoarthritis. Currently on home oxygen 2-3 L at home. Reported recent change in lasix use, with no resolution of symtoms. He was brought in from home with a chief concern of acute onset of worsening dyspnea for the last 1 week, and pedal edema. Vitals at the time of admission-temperature 97.5, pulse rate 104, respiration 18 , blood pressure 104/63, 96% on 3 L nasal cannula supplemental oxygen. Pertinent lab findings WBC 11.0, hemoglobin 9.0, (baseline around 9), platelets 175. Sodium 1:30, potassium 4.2, chloride 85, bicarbonate 33, anion gap 11, BUN 18, serum creatinine 1.1. Liver chemistries-AST 11, ALT 22, proBNP 3950, troponin 0.01. Chest x-ray revealed mild right perihilar and basilar infiltrate. Also noted to have small right pleural effusion. Etiology is likely due to pneumonia likely community-acquired which could've caused worsening in atrial fibrillation, thus leading to worsening cardiac output. Problem list: #1 comminuted acquired pneumonia #2 acute exacerbation of CHF #3 atrial fibrillation #4 history of TIA #5 anemia #1 admit the patient to telemetry given her cardiac history. -Serial EKG, troponins -Start the patient on anticoagulation 2. Pneumonia- - LRC, urine legionella, strep ag - CT chest upon non resolution of symptoms. - Blood cultures - Monitor vitals, cbc in the am. 3. Anemia- - Check Fe, TIBC - Hemoccult. Housekeepin. DVT Ppx- heparin sc 2. Sepsis pathway- check lactate 3. GI ppx-protonix, prn 4. Full code 5. Diet- heart healthy diet. Final recs to follow after discussing w/ the attending. Osvaldo THOMAS, [facility] 11/11/17 2222: Attending MD Review Statement Attending Statement Attending MD Statement: examined this patient, discuss w/resident/PA/MARINE SAFETY OFFICER, agreed w/resident/PA/MARINE SAFETY OFFICER, discussed with family, reviewed images, amended to note Attending Assessment/Plan: 87 yo M with h/o CAD s/p CABG, TIA, HTN, CHF, chronic anemia, Do's neuroma, gout on chronic prednisone, on home 3L O2 (all day and night) is here for evaluation of malaise, productive cough and increasing lower extremity edema. Patient has a recent diagnosis of Aflutter/ fibrillation (Jul 2017) was initiated on eliquis but developed significant bleeding and AC was discontinued. He was also started on digoxin but developed digitoxicity. He follows Dr. Lee Cardiology. Patient's daughter at bedside provides history. About 1 week ago, patient had a cough initially nonproductive but recently bringing up yellow phlegm, associated with dyspnea and increasing leg swelling. Orthopnea+. No recent change in medications. At baseline, patient is bedbound and can transfer self to commode and back. He has PT at home, but does not like to do therapy. Visiting nurse checked on him today, noted his breathing to be worse and had to increase O2 to 4L, nurse then called 911. List of meds patient should avoid: Lisinopril, isosorbide, eliquis, digoxin and spirinolactone. Vitals: afebrile, HR 100-110's, BP 104/62, sats 96% on 3L. Exam: morbidly obese male in no distress, resting comfortably in bed, gets dyspneic with slight movement, MMM, difficult to appreciate JVD given body habitus, Chest basilar crackles, reduced breath sounds at right base, LE: b/l 2-3+ pitting edema up to knees. Labs: WBC 11, H/H 9.0/27.8 (baseline), macrocytic anemia, Plt 175, Na 130, bicarb 33, glucose 108, trop neg. ProBNP 3950. UA neg. CXR: small right perihilar and basilar infiltrate, small right pleural effusion, low lung volumes. EKG: Aflutter. Echo (2016): EF 45%, impaired LV relaxation, mild to moderate aortic insufficiency, mild aortic stenosis. Assessment and plan: 1. Acute on chronic hypoxic respiratory failure 2. Acute exacerbation of chronic systolic+diastolic heart failure 3. Possible Community acquired pneumonia 4. Atrial flutter not on anticoagulation 5. H/o gout on chronic prednisone therapy 6. Hypervolemic hyponatremia 7. Chronic macrocytic anemia - Admit to Telemetry - Daily weights, strict I/O's - IV lasix 40 daily (patient takes 60 mg daily at home) - LE dopplers to rule out DVT - Serial EKG and troponin - Obtain echo cardiogram - Cardio consult (Dr. Mcdonald) - Obtain records from [facility] or Integration Director Dr. Lee about patient's last admission/ aflutter - Panculture - IV ceftriaxone and azithromycin - Please consider discontinuing antibiotics if afebrile (he may not mount being on steroids) - If symptoms do not resolve, consider CT chest - Wound care consult (daughter reports patient has redness rash to the back which needs care) - Continue cardizem, metoprolol for rate control - Continue prednisone, ranexa, statin, paroxetine, allopurinol and valium. - PT therapy - Chronic anemia check guaiac, TSH, B12, folic acid, iron studies. Unclear if this has been worked up in the past. - Check urine and serum osmolality, urine lytes, continue fluid restriction and IV lasix, monitor sodium levels. DVT ppx Hep SC. Full code.
--- NOTE | 2017-11-11 22:23 | Admission Certification ---
Admission Certification Certification Statement - As attending physician, I certify that at the time of - admission, based on clinical presentation, severity of - symptoms, need for further diagnostic testing and - therapeutic interventions, and risk of adverse outcomes - without in-hospital treatment, in my clinical assessment, - this patient requires an acute hospital stay for a minimum - of two nights or longer. I have also considered psychsocial - factors such as support system, advanced age, financial - issues, cognitive issues, and failed out-patient treatments, - past re-admission history, safety of patient, and lack of - compliance as applicable. Specific rationale supporting this admission is: Acute on chronic hypoxic respiratory failure, acute on chronic systolic heart failure, community acquired pneumonia.
[2017-11-11 22:44] VITALS: BP 104/64
[2017-11-12 06:00] VITALS: BP 98/62
--- NOTE | 2017-11-12 07:14 | PN- Housestaff ---
Piper THOMAS,[facility] 11/12/17 0713: Subjective Follow-up For: 1 comminuted acquired pneumonia 2 acute exacerbation of CHF 3 atrial fibrillation 4 history of TIA 5 anemia Subjective: Wound care Nurse, Devorah, was at bedside when i went to see the patient this am. Patient in no acute distress. Gets short of breath with exertion only. Review of Systems Constitutional: Reports: no symptoms. EENTM: Reports: no symptoms. Cardiovascular: Reports: orthopena, peripheral edema. Respiratory: Reports: orthopnea, short of breath. Gastrointestinal: Reports: no symptoms. Genitourinary: Reports: no symptoms. Musculoskeletal: Reports: no symptoms. Skin: Reports: lesions. Neurological/Psychological: Reports: no symptoms. Hematologic/Endocrine: Reports: no symptoms. Immunologic/Allergic: Reports: no symptoms. Objective Last 24 Hrs of Vital Signs/I&O Vital Signs Date Time Temp Pulse Resp B/P B/P Pulse O2 O2 Flow FiO2 Mean Ox Delivery Rate 11/12 1453 Nasal 3.0L Cannula 11/12 1449 Nasal 3.0L Cannula 11/12 1447 98.1 106 18 126/70 96 Nasal 3.0L Cannula 11/12 1023 109 106/70 11/12 1014 109 106/70 11/12 0800 Nasal 2.0L Cannula 11/12 0600 97.9 70 18 98/62 94 06 0125 109 104/62 11/11 2244 97.4 108 18 104/64 96 Nasal 3.0L Cannula 11/11 2157 96 Nasal 2.0L Cannula 11/11 2051 97.2 108 22 101/70 95 Nasal 2.0L Cannula 11/11 2018 96 Nasal 5.0L Cannula 11/11 1831 97.6 110 20 110/63 97 Nasal 3.0L Cannula Intake & Output 11/12 1600 06 0800 03/ 0000 Intake Total 720 250 Output Total 250 650 Balance 470 -650 250 Intake, IV 250 Intake, Oral 720 Output, Urine 250 650 Patient 248 lb Weight Weight Bed scale Measurement Method Physical Exam General Appearance: Alert, Oriented X3, Cooperative, No Acute Distress Skin: No Rashes, Stage 2 pressure ulcer on left buttock Cardiovascular: Normal S1, Normal S2, Irregular Lungs: bibailar crackles Abdomen: Normal Bowel Sounds, Soft, No Tenderness Extremities: No Clubbing, No Cyanosis, +1 pitting edema bilaterally Current Medications: Current Medications Sig/Sherrill Start time Last Medication Dose Route Stop Time Status Admin Allopurinol 300 MG DAILY 11/12 1000 AC 11/12 PO 1023 Ascorbic Acid 1,000 MG DAILY 11/12 1459 AC PO Atorvastatin Calcium 20 MG 1700 11/12 1700 AC 11/12 PO 1610 Azithromycin 500 MG 1800 11/12 1800 AC Dextrose/Water 250 ML IV Azithromycin 500 MG ONCE ONE 11/11 1745 DC 11/11 Dextrose/Water 250 ML IV 11/11 1844 1854 Ceftriaxone Sodium 1,000 MG 1800 11/12 1800 AC 11/12 IV 1611 Ceftriaxone Sodium 0 .STK-MED ONE 11/11 183 DC .ROUTE Ceftriaxone Sodium 1,000 MG ONCE ONE 11/11 1745 DC 11/11 IV 11/11 1746 1854 Diazepam 5 MG QPM 11/12 2200 AC PO Diazepam 5 MG Q6-PRN PRN 11/11 2145 AC PO Diltiazem HCl 120 MG DAILY 11/12 1000 AC 11/12 PO 1022 Furosemide 40 MG 1700 11/12 1700 AC 11/12 IV 1611 Furosemide 40 MG ONCE ONE 11/11 2130 CAN IV 11/11 2131 Furosemide 20 MG ONCE ONE 11/11 2130 DC 11/11 IV 11/11 2131 2326 Furosemide 0 .STK-MED ONE 11/11 183 DC IV Furosemide 20 MG ONCE ONE 11/11 1745 DC 03/ IV 11/11 1746 1854 Heparin Sodium 5,000 UNIT Q8 11/11 2200 CAN (Porcine) SC Heparin Sodium 5,000 UNIT Q8 11/11 2200 AC 11/12 (Porcine) SC 1447 Methylprednisolone 0 .STK-MED ONE 11/11 1838 DC .ROUTE Methylprednisolone 125 MG ONCE ONE 11/11 1800 DC 11/11 IV 11/11 1801 1854 Methylprednisolone 20 MG ONCE ONE 11/11 1745 CAN IV 11/11 1746 Metoprolol Tartrate 75 MG BID 11/11 2200 CAN PO Metoprolol Tartrate 75 MG BID 11/11 2200 AC 11/12 PO 1022 Paroxetine HCl 20 MG DAILY 11/12 1000 AC 11/12 PO 1023 Patient Medication 1 ED ONE ONE 11/12 1515 DC Teaching ED 11/12 1516 Prednisone 2.5 MG DAILY 11/12 1000 AC 11/12 PO 1023 Ranolazine 500 MG BID 11/11 2199 AC 11/12 PO 1023 Last 24 Hrs of Lab/Onesimo Results Last 24 Hrs of Labs/Mics: Laboratory Tests 11/12/17 0615: Anion Gap 12, Estimated GFR > 60, BUN/Creatinine Ratio 18.2, Troponin I < 0.01, TSH &T3 &Free T4 Intrp 0.758, Cortisol AM Sample 12.2, CBC w Diff NO MAN DIFF REQ, RBC 2.62 L, MCV 96.8 H, MCH 31.6 H, MCHC 32.6 L, RDW 17.3 H, MPV 10.1, Gran % 92.4 H, Lymphocytes % 6.9 L, Monocytes % 0.5 L, Eosinophils % 0.2, Basophils % 0, Absolute Granulocytes 8.2 H, Absolute Lymphocytes 0.6 L, Absolute Monocytes 0 L, Absolute Eosinophils 0, Absolute Basophils 0 11/11/17 2338: Troponin I < 0.01 11/11/172114: Urine Color YEL, Urine Clarity CLEAR, Urine pH 6.5, Ur Specific Beryl 1.010, Urine Protein NEG, Urine Ketones NEG, Urine Nitrite NEG, Urine Bilirubin NEG, Urine Urobilinogen 0.2, Ur Leukocyte Esterase NEG, Ur Microscopic EXAM NOT REQUIRED, Urine Hemoglobin NEG, Urine Glucose NEG 11/11/172114: Urine Osmolality 186 L, Ur Random Creatinine 38.3, Ur Random Sodium 11 L, Ur Random Potassium 26.3, Fraction Sodium Excret 0.2 11/11/172035: Urine Osmolality Cancelled 11/11/17 1722: Anion Gap 11, Estimated GFR > 60, BUN/Creatinine Ratio 16.4, Glucose 108 H, Serum Osmolality 278 L, Lactic Acid 1.5, Calcium 8.6, Iron 34 L, TIBC 356, Total Bilirubin 0.7, AST 11 L, ALT 22, Alkaline Phosphatase 99, Troponin I < 0.01, Hpz-H-Pctfzazkjap Pept 3950 H, Total Protein 5.9 L, Albumin 3.3 L, Globulin 2.6, Albumin/Globulin Ratio 1.3, CBC w Diff NO MAN DIFF REQ, RBC 2.85 L, MCV 97.4 H, MCH 31.5 H, MCHC 32.3 L, RDW 17.8 H, MPV 9.5, Gran % 75.3 H, Lymphocytes % 11.4 L, Monocytes % 12.6 H, Eosinophils % 0.5, Basophils % 0.2, Absolute Granulocytes 8.3 H, Absolute Lymphocytes 1.3, Absolute Monocytes 1.4 H, Absolute Eosinophils 0.1, Absolute Basophils 0 Microbiology 11/12 837 LOWER RESP: Respiratory Culture - COLB 11/12 837 LOWER RESP: Gram Stain - COLB 11/11 2114 URINE ROUT: Legionella Antigen - COMP 11/11 2114 URINE ROUT: Streptococcus pneumoniae Antigen (M - COMP 11/11 181 BLOOD: Blood Culture - RES 11/11 172 BLOOD: Blood Culture - RES Assessment/Plan Assessment: 87-year-old male with a past medical history of A. fib, atrial flutter, [place], CAD status post three-vessel CABG, TIA, CHF, hypertension, Do's neuroma, presenting for worsening shortness of breath and leg swelling found to have possible CAP. Problem list: #1 Chronic resp failure on 2L of O2 at home #2 chf exacebation #3 Pneumnia #2 Atrial fibrillation #3 history of TIA #4 anemia #5 Hyponatremia - Continue IV Lasix 40mg daily. - Daily weights, strict I/O's. - Continue Metoprolol and Cardizem with holding parameters. - Follow-up lower respiratory culture, blood cultures X2. - Legionella and strep pneumo antigens -VE - Continue ceftriaxone, azithromycin - Follow-up echo and cardiology consult - LE dopplers to rule out DVT remained negative - Repeat CBC in am to monitor H&H for chronic anemia - Na 130; Low Urine and serum Osm with low urine Na. cont to monitor - Appreciate wound care consult for buttock rash/ulcer. - Continue rest of home medications. DVT ppx; Hep SC Patient is Full code. Problem List: 1. Community acquired pneumonia 2. CHF (congestive heart failure) Pain Ratin Pain Location: None Pain Goal: Remain pain free Pain Plan: None Tomorrow's Labs & Rationales: BEP(Hyponatremia) Kunal THOMAS,Joni 11/12/17 1523: Attending MD Review Statement Attending Statement Attending MD Statement: examined this patient, discuss w/resident/PA/PROOFSHEET CORRECTOR, agreed w/resident/PA/PROOFSHEET CORRECTOR, reviewed EMR data (avail), discussed with nursing, discussed with case mgmt, amended to note Attending Assessment/Plan: Patient seen and examined. Resting comfortably and not in acute distress. Very jovial. Denies shortness of breath or cough at rest. He did complain of shortness of breath after being transported back and forth a later on for his diagnostic studies. Currently afebrile and hemodynamically stable. On examination he is not in any respiratory distress. He has no jugular venous distention. Heart sounds are regular. He has bilateral pedal edema. Recommendations: -Continue diuresis with Lasix 40 mg IV daily. -Monitor daily weights and input output. -Awaiting cardiology evaluation. Follow-up need for repeat echocardiogram. -Chest x-ray is suggestive of right-sided pneumonia. Patient however is afebrile, mild leukocytosis present on admission has resolved. We will continue empiric antibiotic therapy for now. He remains clinically stable with no clinical evidence of pneumonia may consider discontinuing antibiotic therapy. -Mild downward trending hemoglobin noted. Repeat CBCs in am. Repeat serum chemistry in a.m. also to evaluate his hyponatremia with likely due to volume overload. -Follow-up with the cardiology service regarding stopping of patient's anticoagulation therapy which was done per patient's account due to mild epistaxis.
[2017-11-12 07:57] LABS: ABSOLUTE BASOPHIL COUNT 0 /CUMM (0.0-0.2); ABSOLUTE EOSINOPHIL COUNT 0 /CUMM (0.0-0.7); ABSOLUTE GRANULOCYTE CT 8.2 /CUMM (1.4-6.5); ABSOLUTE LYMPH COUNT 0.6 /CUMM (1.2-3.4); ABSOLUTE MONOCYTE COUNT 0 /CUMM (0.10-0.60); BASOPHIL % 0 % (0.0-2.0); EOSINOPHIL % 0.2 % (0-5); GRANULOCYTE % 92.4 % (42.2-75.2); HEMATOCRIT 25.3 % (42-52); MEAN CORPUSCULAR HGB 31.6 PG (27.0-31.0); MEAN CORPUSCULAR HGB CONC 32.6 G/DL (33.0-37.0); MEAN CORPUSCULAR VOLUME 96.8 FL (80.0-94.0); MEAN PLATELET VOLUME 10.1 FL (7.4-10.4); PLATELET COUNT 156 /CUMM (130-400); RBC DISTRIBUTION WIDTH 17.3 % (11.5-14.5); RED BLOOD CELL CT 2.62 /CUMM (4.70-6.10)
--- NOTE | 2017-11-12 09:10 | Cons- Wound Care ---
General Information and HPI Consulting Request Date of Consult: 11/12/17 Requested By: Joni Syed MD Reason for Consult: Left buttock ulcer present on admission History of Present Illness: Patient is a 7-year-old admitted with community acquired pneumonia and exacerbation of CHF and found to have a left buttock ulcer present on admission. Patient for the most part is sedentary and sleeps in a recliner. He reports this ulcers been present for approximately 1 month Allergies/Medications Allergies: Coded Allergies: NO KNOWN ALLERGIES (12/22/14) Home Med List: Acetaminophen 500 MG TABLET 2 TAB PO Q8 PAIN (Reported) Allopurinol 300 MG TABLET 1 TAB PO DAILY GOUT (Reported) Ascorbic Acid (Vitamin C) 1,000 MG TABLET 1 TAB PO DAILY VITAMIN SUPPORT ( Reported) Atorvastatin Calcium (Lipitor) 20 MG TABLET 1 TAB PO QPM CHOLESTEROL ( Reported) Diazepam 5 MG TABLET 1 TAB PO Q6-PRN PRN SPASMS (Reported) Diazepam 5 MG TABLET 1 TAB PO QPM SLEEP (Reported) Diltiazem HCl (Diltiazem 24HR ER) 120 MG CAP.ER.24H 1 CAP PO DAILY HEART ( Reported) Furosemide (Lasix) 20 MG TABLET 3 TAB PO DAILY WATER RETENTION (Reported) Metoprolol Tartrate 25 MG TABLET 3 TAB PO BID HEART (Reported) Paroxetine HCl 20 MG TABLET 1 TAB PO DAILY ANXIETY (Reported) Polyethylene Glycol 3350 (Miralax) 17 GRAM/DOSE POWDER 17 GM PO DAILY PRN CONSTIPATION (Reported) mix with water, juice, soda, coffee or tea Prednisone 2.5 MG TABLET 1 TAB PO DAILY STEROID (Reported) Ranolazine (Ranexa) 500 MG TAB.ER.12H 1 TAB PO BID HEART (Reported) Review of Systems Review of Systems: Noncontributory Past History Travel History Traveled to [place] past 21 day No Medical History Neurological: TIA EENT: NONE Cardiovascular: AFIB, CA, TRIPLE BYPASS, TIA CHF, CIRCUMFLEX CLOGGED ARTERY, HTN Respiratory: pneumonia Gastrointestinal: diverticulitis Hepatic: NONE Renal: NONE Musculoskeletal: osteoarthritis Psychiatric: NONE Endocrine: NONE Blood Disorders: NONE Cancer(s): NONE COMMUNITY RELATIONS DIRECTOR/Reproductive: NONE Surgical History Surgical History: CABG (1985 X 3) Family History Relations & Conditions If Any: FATHER FH: CAD (coronary artery disease) Psychosocial History Services at Home: None Smoking Status: Former Smoker Exam & Diagnostic Data Vital Signs and I&O Vital Signs Result Date Time Pulse Ox 94 11/12 599 B/P 98/62 11/12 599 Temp 97.9 11/12 599 Pulse 70 11/12 599 Resp 18 11/12 599 O2 Delivery Nasal Cannula 11/12 2243 O2 Flow Rate 3.0L 11/12 2243 Intake & Output 11/12 0000 11/11 1600 11/11 0800 Intake Total 250 Output Total Balance 250 Intake, IV 250 Patient 248 lb 220 lb Weight Weight Bed scale Estimated Measurement Method The left buttock shows there to be approximately a 5 x 1 cm stage II pressure ulcer with predominantly red fill is no undermining sinus tracking or exposed bone. It is no periwound erythema Assessment/Plan Impression/Plan: 87-year-old patient admitted with community acquired pneumonia or congestive heart failure and found to have a stage II pressure ulcer with left buttock present on admission. His risk factors being probably sedentary and sleeping in a recliner. Recommendation is made for aggressive offloading. Wound care can be either use of a barrier cream or thin duoderm changed every 2-3 days. Consult Acknowledgment - Thank you for your consult request.
[2017-11-12 09:36] LABS: WHITE BLOOD CELL COUNT 8.9 /CUMM (4.8-10.8)
[2017-11-12 10:14] VITALS: BP 106/70
--- NOTE | 2017-11-12 11:44 | ULTRASOUND REPORT ---
EXAMINATION: US TRIPLEX OF LOWER EXTREMITIES, BILATERAL CLINICAL INFORMATION: Bilateral lower extremity edema and swelling COMPARISON: None TECHNIQUE: Color-flow triplex imaging with spectral analysis and compression Doppler were performed on the lower extremities. FINDINGS: Respiratory variation, normal compression and augmented flow are noted throughout the lower extremities. The visualized common femoral vein, superficial femoral vein, profunda femoral vein, popliteal vein and midcalf peroneal and posterior tibial venous segments show no evidence of deep venous thrombosis. There is no Mayen's cyst. IMPRESSION: Normal triplex scan without evidence of deep venous thrombosis involving the lower extremities.
[2017-11-12 14:47] VITALS: BP 126/70
--- NOTE | 2017-11-12 19:21 | Cons- Cardiology ---
General Information and HPI Consulting Request Date of Consult: 11/12/17 Requested By: Joni Syed MD Reason for Consult: Shortness of breath. Source of Information: patient, old records Exam Limitations: poor historian History of Present Illness: Mr. Flakito Peters is in 87-year-old male who is usually followed in [place] by Greg Lee M.D. and who has a history of hypertension, dyslipidemia, "borderline" diabetes mellitus, gout, previous TIA, paroxysmal atrial fibrillation/flutter without anticoagulation, coronary artery disease, s/p CABG X3, and previous heart failure who presented from home via ambulance after being evaluated earlier by the [facility] concerns about having pneumonia, given complaints of shortness of breath. He also admits to chronic lower extremity edema that has worsened and chronic orthopnea for which he sleeps a recliner. Allergies/Medications Allergies: Coded Allergies: NO KNOWN ALLERGIES (12/22/14) Home Med List: Acetaminophen 500 MG TABLET 2 TAB PO Q8 PAIN (Reported) Allopurinol 300 MG TABLET 1 TAB PO DAILY GOUT (Reported) Ascorbic Acid (Vitamin C) 1,000 MG TABLET 1 TAB PO DAILY VITAMIN SUPPORT ( Reported) Atorvastatin Calcium (Lipitor) 20 MG TABLET 1 TAB PO QPM CHOLESTEROL ( Reported) Diazepam 5 MG TABLET 1 TAB PO Q6-PRN PRN SPASMS (Reported) Diazepam 5 MG TABLET 1 TAB PO QPM SLEEP (Reported) Diltiazem HCl (Diltiazem 24HR ER) 120 MG CAP.ER.24H 1 CAP PO DAILY HEART ( Reported) Furosemide (Lasix) 20 MG TABLET 3 TAB PO DAILY WATER RETENTION (Reported) Metoprolol Tartrate 25 MG TABLET 3 TAB PO BID HEART (Reported) Paroxetine HCl 20 MG TABLET 1 TAB PO DAILY ANXIETY (Reported) Polyethylene Glycol 3350 (Miralax) 17 GRAM/DOSE POWDER 17 GM PO DAILY PRN CONSTIPATION (Reported) mix with water, juice, soda, coffee or tea Prednisone 2.5 MG TABLET 1 TAB PO DAILY STEROID (Reported) Ranolazine (Ranexa) 500 MG TAB.ER.12H 1 TAB PO BID HEART (Reported) Review of Systems Review of Systems: A 14 point system review was obtained and was noncontributory, other than as above. Past History Travel History Traveled to [place] past 21 day No Medical History Neurological: TIA EENT: NONE Cardiovascular: AFIB, [place], TRIPLE BYPASS, TIA CHF, CIRCUMFLEX CLOGGED ARTERY, HTN Respiratory: pneumonia Gastrointestinal: diverticulitis Hepatic: NONE Renal: NONE Musculoskeletal: osteoarthritis Psychiatric: NONE Endocrine: NONE Blood Disorders: NONE Cancer(s): NONE FRINGE MAKER/Reproductive: NONE Surgical History Surgical History: CABG (1985 X 3) Family History Relations & Conditions If Any: FATHER FH: CAD (coronary artery disease) Psychosocial History Services at Home: None Smoking Status: Former Smoker Exam & Diagnostic Data Vital Signs and I&O Vital Signs Date Time Temp Pulse Resp B/P B/P Pulse O2 O2 Flow FiO2 Mean Ox Delivery Rate 11/12 1453 Nasal 3.0L Cannula 11/12 1449 Nasal 3.0L Cannula 11/12 1447 98.1 106 18 126/70 96 Nasal 3.0L Cannula 11/12 1023 109 106/70 11/12 1014 109 106/70 11/12 0800 Nasal 2.0L Cannula 11/12 0600 97.9 70 18 98/62 94 11/12 0125 109 104/62 11/11 2244 97.4 108 18 104/64 96 Nasal 3.0L Cannula 11/11 2157 96 Nasal 2.0L Cannula 11/11 2051 97.2 108 22 101/70 95 Nasal 2.0L Cannula 11/11 2018 96 Nasal 5.0L Cannula Intake & Output 11/12 1600 11/12 0800 / 0000 / 1600 11/11 0800 11/11 0000 Intake Total 720 250 Output Total 250 650 Balance 470 -650 250 Intake, IV 250 Intake, Oral 720 Output, Urine 250 650 Patient 248 lb 220 lb Weight Weight Bed scale Estimated Measurement Method Physical Exam: Well-developed, obese elderly male in no acute distress with nasal oxygen in place. Vital signs: See above. HEENT: Normocephalic, atraumatic, EOMI, moist mucous membranes. Neck: No JVD, no bruits. Lungs: Decreased breath sounds bilaterally. Heart: S1, S2 with grade 1-2/6 systolic murmur. No gallop or rub appreciated. Abdomen: Soft, nontender, positive bowel sounds. Extremities: Trace edema. Diagnostic Data EKG Results 11/12/2017: Atrial flutter with 2:1 AV block, nonspecific IVCD, and nondiagnostic ST-T wave abnormalities. CXR Results 11/11/2017: 1. A mild right perihilar and basilar infiltrate is suspected. This could be more fully evaluated with repeat 2 view chest radiographs at a greater depth of inspiration. Recommend short-term follow-up chest radiographs to ensure clearance and exclude the possibility of underlying obstructive process. 2. There is a small right pleural effusion. 3. Examination limited by low lung volumes and body habitus. Assessment/Plan Assessment/Plan [id number] w, hx of HTN, HLD, "borderline" DM, gout, previous TIA, PAF/flutter w /o AC, & CAD s/p remote CABG X3, and previous HF (HFrEF) who presented after being evaluated earlier by the [facility] & concerns about PNA, given c/o of SOB. Naturally, there is concern for a concomitant degree of heart failure as well, given his complaints of lower extremities edema, orthopnea, etc. Recommendations: * Admit to telemetry, follow-up troponins, follow-up ECG. * Continue on present cardiac medications, but hold oral furosemide and give IV furosemide 40 mg twice daily and reassess the need for further IV diuresis in the a.m. * Repeat CXR in a.m. following diuresis. * Contact Dr. Lee's office to determine why Mr. Peters is not on anticoagulation. * Echocardiogram to reassess left ventricular function. * Evaluate anemia and aim to maintain hemoglobin at or above 8.0 g/dl, given his history of CAD. * Replete potassium and add magnesium level to today's blood work and replete as needed. * DVT prophylaxis. Further recommendations will follow, Thank you. Consult Acknowledgment - Thank you for your consult request.
[2017-11-12 20:33] VITALS: BP 120/76
[2017-11-12 21:56] VITALS: BP 120/78
[2017-11-13 07:06] VITALS: BP 124/62
--- NOTE | 2017-11-13 07:47 | PN- Housestaff ---
Piper THOMAS,[facility] 11/13/17 0747: Subjective Follow-up For: 1 comminuted acquired pneumonia 2 acute exacerbation of CHF 3 atrial fibrillation 4 history of TIA 5 anemia Tele-Events Since Last Visit: Atrial flutter Heart rate 105-108 Subjective: Patient states his breathing is okay at rest but mild exertion/movement makes him short of breath. He was also frustrated regarding physical therapy recommendations of sending him to short-term rehabilitation, states he has physical therapy services available at home and he does not feel the need to go to the rehabilitation. Review of Systems Constitutional: Reports: no symptoms. EENTM: Reports: no symptoms. Cardiovascular: Reports: orthopena, peripheral edema. Respiratory: Reports: short of breath. Gastrointestinal: Reports: no symptoms. Genitourinary: Reports: no symptoms. Musculoskeletal: Reports: no symptoms. Skin: Reports: no symptoms. Neurological/Psychological: Reports: no symptoms. Hematologic/Endocrine: Reports: no symptoms. Immunologic/Allergic: Reports: no symptoms. Objective Last 24 Hrs of Vital Signs/I&O Vital Signs Date Time Temp Pulse Resp B/P B/P Pulse O2 O2 Flow FiO2 Mean Ox Delivery Rate 11/13 0748 Nasal 3.0L Cannula 11/13 0735 108 124/62 11/13 0706 97.9 108 20 124/62 92 11/13 0000 Nasal 3.0L Cannula 11/12 2156 97.8 93 20 120/78 93 11/12 2116 108 120/76 11/12 2033 108 120/76 11/12 1453 Nasal 3.0L Cannula 11/12 1449 Nasal 3.0L Cannula 11/12 1447 98.1 106 18 126/70 96 Nasal 3.0L Cannula Intake & Output 11/13 1600 11/13 0800 11/13 0000 Intake Total 110 754 Output Total 400 600 Balance -290 154 Intake, IV 10 274 Intake, Oral 100 480 Output, Urine 400 600 Patient 262 lb 260 lb 262 lb Weight Weight Bed scale Measurement Method Physical Exam General Appearance: Alert, Oriented X3, Cooperative, No Acute Distress Skin: No Rashes, No Breakdown Cardiovascular: Normal S1, Normal S2, irregular Lungs: bibasilar crackles Abdomen: Normal Bowel Sounds, Soft, No Tenderness Extremities: No Clubbing, No Cyanosis, +1 pitting edema bilaterally Current Medications: Current Medications Sig/Sherrill Start time Last Medication Dose Route Stop Time Status Admin Allopurinol 300 MG DAILY 11/12 1000 AC 11/13 PO 0734 Ascorbic Acid 1,000 MG DAILY 11/12 1459 AC 11/13 PO 0734 Atorvastatin Calcium 20 MG 1700 11/12 1700 AC 11/12 PO 1610 Azithromycin 500 MG 1800 11/12 1800 AC 11/12 Dextrose/Water 250 ML IV 1829 Ceftriaxone Sodium 1,000 MG 1800 11/12 1800 AC 11/12 IV 1611 Diazepam 5 MG QPM 11/12 2200 DC PO Diazepam 5 MG QPM PRN 11/12 1715 AC 11/12 PO 2116 Diazepam 5 MG Q6-PRN PRN 11/11 2145 AC PO Diltiazem HCl 120 MG DAILY 11/12 1000 AC 11/13 PO 0735 Furosemide 40 MG BID 11/13 1000 AC 11/13 IV 0734 Furosemide 40 MG 1700 11/12 1700 DC 11/12 IV 1611 Heparin Sodium 5,000 UNIT Q8 11/11 2200 AC 11/13 (Porcine) SC 0633 Metoprolol Tartrate 75 MG BID 11/11 2200 AC 11/13 PO 0735 Paroxetine HCl 20 MG DAILY 11/12 1000 AC 11/13 PO 0736 Patient Medication 1 ED ONE ONE 11/12 1515 DC Teaching ED 11/12 1516 Prednisone 2.5 MG DAILY 11/12 1000 AC 11/13 PO 0735 Ranolazine 500 MG BID 11/11 2200 AC 11/13 PO 0735 Last 24 Hrs of Lab/Onesimo Results Last 24 Hrs of Labs/Mics: Laboratory Tests 11/13/17 0632: Anion Gap 13, Estimated GFR 52 L, BUN/Creatinine Ratio 23.1, CBC w Diff NO MAN DIFF REQ, RBC 2.57 L, MCV 96.7 H, MCH 31.7 H, MCHC 32.8 L, RDW 17.7 H, MPV 10.2, Gran % 84.1 H, Lymphocytes % 9.8 L, Monocytes % 6.0, Eosinophils % 0, Basophils % 0.1, Absolute Granulocytes 9.2 H, Absolute Lymphocytes 1.1 L, Absolute Monocytes 0.7 H, Absolute Eosinophils 0, Absolute Basophils 0 Assessment/Plan Assessment: 87-year-old male with a past medical history of A. 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 Problem list: #1 Chronic resp failure on 2L of O2 at home #2 Acute on Chronic systolic HF #3 Pneumnia #2 Atrial fibrillation #3 history of TIA #4 anemia #5 Hyponatremia -Lasix increased to 40 mg twice a day. - Daily weights, strict I/O's. Urine output of 2500 mg yesterday with a negative fluid balance of 26 only. - Continue Metoprolol and Cardizem with holding parameters. - Repeat echocardiogram showed mild to moderately abnormal left ventricular ejection fraction estimated at 40% with hypokinetic inferior wall. - Repeat chest x-ray shows central pulmonary vascular congestion and left-sided pleural effusion. There is also Increased density in the posterior aspect of the left lung base concerning for left lower lobe consolidation. - Change antibiotics to Augmentin. - Follow-up lower respiratory culture - pending. - Blood cultures X2 - no growth after one day. - Na 131, remains the same with Low Urine and serum Osm with low urine Na. Start the patient on 1200 ml fluid restriction and cont to monitor sodium. - Appreciate wound care consult for buttock rash/ulcer. - Continue rest of home medications. DVT ppx; Hep SC Patient is full code Problem List: 1. Community acquired pneumonia 2. CHF (congestive heart failure) Pain Ratin Pain Location: None Pain Goal: Remain pain free Pain Plan: None Tomorrow's Labs & Rationales: BEP(on IV lasix, Hyponatremia) Kunal THOMAS,[facility] 11/13/17 1514: Attending MD Review Statement Attending Statement Attending MD Statement: examined this patient, discuss w/resident/PA/PANELBOARD OPERATOR, agreed w/resident/PA/PANELBOARD OPERATOR, reviewed EMR data (avail), discussed with nursing, discussed with case mgmt, amended to note Attending Assessment/Plan: Patient seen and examined. Resting comfortably and not in any acute distress. No issues overnight. On telemetry monitoring he remains in a flutter. Denies any chest pain or shortness of breath at rest. He is reluctant to pursue physical therapy. On examination he has diminished breath sounds in both lung bases. He has bilateral pedal edema 1+. Chest x-ray today shows central pulmonary vascular congestion and left-sided pleural effusion. There is increased density in the posterior aspect of the left lung concerning for left lower lobe consolidation/infiltrate. His weight appears to have increased compared to presentation. Input output does not appear to have been adequately documented yesterday. Echocardiogram shows hypokinetic inferior wall, ejection fraction of 40%. Mild aortic stenosis. Mild irregular dilatation. Moderate left atrial dilatation. Mild pulmonary hypertension. No significant changes from prior echocardiogram last year. Ejection fraction at that time was estimated at 45%. Problems: 1. Acute on chronic systolic heart failure. 2. Left lower lobe pneumonia. 3. Chronic microcytic anemia. 4. Atrial fibrillation. Plan: -Continue current dose of Lasix 40 mg IV twice daily. If patient does not have appropriate weight loss and urine output tomorrow we will consider increasing dose of Lasix. Mild bump in creatinine noted. Will monitor closely. -Chest x-ray suggestive of pneumonia. Transition to Augmentin to complete 10 days of antibiotic therapy. -Patient has chronic microcytic anemia. Hemoglobin level is not too far off his baseline. Check vitamin B12 and folic acid levels. Check stool guaiac. -Patient reports that he was taken off anticoagulation therapy by his medical providers due to history of bleeding. Please confirm this from his PCP. -Patient remains in A. fib with controlled ventricular response. Discontinue telemetry monitoring. Continue care on the general medical floor.
[2017-11-13 08:21] LABS: ABSOLUTE BASOPHIL COUNT 0 /CUMM (0.0-0.2); ABSOLUTE EOSINOPHIL COUNT 0 /CUMM (0.0-0.7); ABSOLUTE GRANULOCYTE CT 9.2 /CUMM (1.4-6.5); ABSOLUTE LYMPH COUNT 1.1 /CUMM (1.2-3.4); ABSOLUTE MONOCYTE COUNT 0.7 /CUMM (0.10-0.60); BASOPHIL % 0.1 % (0.0-2.0); EOSINOPHIL % 0 % (0-5); GRANULOCYTE % 84.1 % (42.2-75.2); HEMATOCRIT 24.9 % (42-52); MEAN CORPUSCULAR HGB 31.7 PG (27.0-31.0); MEAN CORPUSCULAR HGB CONC 32.8 G/DL (33.0-37.0); MEAN CORPUSCULAR VOLUME 96.7 FL (80.0-94.0); MEAN PLATELET VOLUME 10.2 FL (7.4-10.4); PLATELET COUNT 182 /CUMM (130-400); RBC DISTRIBUTION WIDTH 17.7 % (11.5-14.5); RED BLOOD CELL CT 2.57 /CUMM (4.70-6.10); WHITE BLOOD CELL COUNT 10.9 /CUMM (4.8-10.8)
--- NOTE | 2017-11-13 12:44 | RADIOLOGY REPORT ---
EXAMINATION: XR CHEST CLINICAL INFORMATION: Shortness of breath. COMPARISON: Portable chest x-ray dated 11/11/2017. TECHNIQUE: Frontal and lateral views of the chest were obtained. FINDINGS: The lung volumes are low bilaterally, however there is better aeration in the right lung base by comparison with the prior study. No blunting the right costophrenic angle is noted however there is blunting the left costophrenic angle with poor visualization of the left lung base particularly in the left retrocardiac region; there is increased density in the posterior aspect of the left lung base on the lateral view. Prominence of the central pulmonary vasculature is noted with mild central peribronchial cuffing. Extensive median sternotomy wires are stable compared to the prior study as well as presence of coronary vascular markers. IMPRESSION: 1. Central pulmonary vascular congestion in the left-sided pleural effusion are noted. 2. Increased density in the posterior aspect of the left lung base on the lateral view with poor visualization of the left hemidiaphragm on the frontal view, are concerning for a left lower lobe consolidation/infiltrate. Clinical correlation requested with follow-up to resolution recommended.
--- NOTE | 2017-11-13 13:37 | ECHOCARDIOGRAM REPORT ---
YARELI SONG Age: 87 : 1930 Gender: M Exam Date: 11/13/2017 08:02 Exam Location: [facility] Ht (in): 68 Wt (lb): 262 BSA: 2.44 BP: 124 / 62 Ordering Physician: Adilson Topete MD Referring Physician: Adilson Topete MD Technologist: Albaro Tejeda RDCS Room Number: Indications: LIGHTHEADEDNESS Rhythm: Sinus Technical Quality: Poor FINDINGS Left Ventricle Normal size left ventricle. Normal left ventricular wall thickness. Hypokinetic inferior wall. Mildly to moderately abnormal left ventricular ejection fraction estimated at 40%. Right Ventricle Right ventricle at upper limits of normal. Right Atrium Normal right atrial size. Left Atrium Moderate left atrial dilatation. Mitral Valve Mild mitral annular calcification. Mitral valve thickened. Mild mitral regurgitation. Aortic Valve Aortic valve not well visualized. Diffuse thickening of the aortic valve cusps with reduced excursion. Mild aortic stenosis. Mild aortic regurgitation. Tricuspid Valve Structurally normal tricuspid valve. Mild tricuspid regurgitation. Mild pulmonary hypertension. Right ventricular systolic pressure estimated to be elevated at 41mmHg. Pulmonic Valve Pulmonic valve not well visualized. No pulmonic regurgitation. Pericardium No pericardial effusion. Left pleural effusion. Great Vessels Normal size aortic root. Mildly dilated proximal ascending aorta (tube). Dilated inferior vena cava. CONCLUSIONS Normal size left ventricle. Normal left ventricular wall thickness. Hypokinetic inferior wall. Mildly to moderately abnormal left ventricular ejection fraction estimated at 40%. Right ventricle at upper limits of normal. Normal right atrial size. Moderate left atrial dilatation. Mild mitral regurgitation. Mild aortic stenosis. Mild aortic regurgitation. Mild tricuspid regurgitation. Mild pulmonary hypertension. Left pleural effusion. Mildly dilated proximal ascending aorta (tube). Dilated inferior vena cava. Eyal Mcdonald M.D. (Electronically Signed) Final Date: 13 November 2017 13:36 MEASUREMENTS (Male / Female) Normal Values 2D ECHO LV Diastolic Diameter PLAX 5.7 cm 4.2 - 5.9 / 3.9 - 5.3 cm LV Systolic Diameter PLAX 4.6 cm 2.1 - 4.0 cm LV Fractional Shortening PLAX 19.3 % 25 - 46 % LV Ejection Fraction 2D Teich 39.2 % IVS Diastolic Thickness 1.0 cm LVPW Diastolic Thickness 1.0 cm LV Relative Wall Thickness 0.4 RV Internal Dim ED PLAX 3.6 cm 1.9 - 3.8 cm LVOT Diameter 2.1 cm Aortic Root Diameter 3.1 cm LA Systolic Diameter LX 5.4 cm 3.0 - 4.0 / 2.7 - 3.8 cm Ascending Aorta Diameter 4.0 cm DOPPLER AV Peak Velocity 213.0 cm/s AV Peak Gradient 18.1 mmHg AV Mean Velocity 151.0 cm/s AV Mean Gradient 11.0 mmHg AV Velocity Time Integral 43.8 cm AI Deceleration [place] 156.0 cm/s AI Peak Velocity 335.0 cm/s AI Pressure Half Time 629.0 ms AI Peak Gradient 44.9 mmHg LVOT Peak Velocity 58.7 cm/s LVOT Peak Gradient 1.4 mmHg LVOT Mean Velocity 39.9 cm/s LVOT Mean Gradient 1.0 mmHg LVOT Velocity Time Integral 14.0 cm LVOT Stroke Volume 48.5 cm AV Area Cont Eq vti 1.1 cm AV Area Cont Eq pk 1.0 cm MV Peak Velocity 139.0 cm/s MV Peak Gradient 7.7 mmHg MV Mean Velocity 75.1 cm/s MV Mean Gradient 3.0 mmHg Mitral E Point Velocity 133.0 cm/s MV PHT Velocity 147.0 cm/s MV Deceleration [place] 852.0 cm/s MV Pressure Half Time 51.8 ms MV Area PHT 4.3 cm MV Deceleration Time 130.0 ms MR Peak Velocity 476.0 cm/s MR Peak Gradient 90.6 mmHg MR ERO PISA 0.3 cm MR Regurgitant Volume PISA 36.3 cm TR Peak Velocity 299.0 cm/s TR Peak Gradient 35.8 mmHg Right Atrial Pressure 5.0 mmHg Pulmonary Artery Systolic Pressu 40.8 mmHg Right Ventricular Systolic Press 40.8 mmHg PV Peak Velocity 103.0 cm/s PV Peak Gradient 4.2 mmHg PV Mean Velocity 58.8 cm/s PV Mean Gradient 2.0 mmHg PV Velocity Time Integral 16.0 cm LV E' Lateral Velocity 13.0 cm/s Mitral E to LV E' Lateral Ratio 10.2 LV E' Septal Velocity 8.5 cm/s Mitral E to LV E' Septal Ratio 15.7
[2017-11-13 14:42] VITALS: BP 112/64
--- NOTE | 2017-11-13 16:07 | PN- Cardiology ---
Subjective Subjective: Feels about the same. Objective Vital Signs and I&Os Vital Signs Date Time Temp Pulse Resp B/P B/P Pulse O2 O2 Flow FiO2 Mean Ox Delivery Rate 11/13 1442 98.2 108 20 112/64 94 Nasal 3.0L Cannula 11/13 0748 Nasal 3.0L Cannula 11/13 0735 108 124/62 11/13 0706 97.9 108 20 124/62 92 / 0000 Nasal 3.0L Cannula 11/12 2156 97.8 93 20 120/78 93 11/12 2116 108 120/76 11/12 2033 108 120/76 Intake & Output 11/13 1600 11/13 0800 11/13 0000 11/12 1600 11/12 0800 11/12 0000 Intake Total 800 110 754 720 250 Output Total 1200 400 600 250 650 Balance -400 -290 154 470 -650 250 Intake, IV 10 274 250 Intake, Oral 800 100 480 720 Output, Urine 1200 400 600 250 650 Patient 262 lb 260 lb 262 lb 248 lb Weight Weight Bed scale Bed scale Measurement Method Physical Exam: Well-developed, obese elderly male in no acute distress with nasal oxygen in place. Vital signs: See above. HEENT: Normocephalic, atraumatic, EOMI, moist mucous membranes. Neck: No JVD, no bruits. Lungs: Decreased breath sounds bilaterally. Heart: S1, S2 with grade 1-2/6 systolic murmur. No gallop or rub appreciated. Abdomen: Soft, nontender, positive bowel sounds. Extremities: Trace edema. Current Medications: Current Medications Sig/Sherrill Start time Last Medication Dose Route Stop Time Status Admin Allopurinol 300 MG DAILY 11/12 1000 AC 11/13 PO 0734 Amoxicillin/ 875 MG Q12 11/13 2200 AC Clavulanate Potassium PO Ascorbic Acid 1,000 MG DAILY 11/12 1459 AC 11/13 PO 0734 Atorvastatin Calcium 20 MG 1700 11/12 1700 AC / PO 1610 Azithromycin 500 MG 1800 11/12 1800 DC 11/12 Dextrose/Water 250 ML IV 1829 Ceftriaxone Sodium 1,000 MG 1800 11/12 1800 DC 03/ IV 1611 Diazepam 5 MG QPM 11/12 2200 DC PO Diazepam 5 MG QPM PRN 11/12 1715 AC 11/12 PO 2116 Diazepam 5 MG Q6-PRN PRN 11/11 2145 AC PO Diltiazem HCl 120 MG DAILY 11/12 1000 AC 11/13 PO 0735 Furosemide 40 MG BID 11/13 1000 AC 11/13 IV 0734 Furosemide 40 MG 1700 11/12 1700 DC 11/12 IV 1611 Heparin Sodium 5,000 UNIT Q8 11/11 2199 AC 11/13 (Porcine) SC 0633 Metoprolol Tartrate 75 MG BID 11/11 2199 AC 11/13 PO 0735 Paroxetine HCl 20 MG DAILY 11/12 1000 AC 11/13 PO 0736 Prednisone 2.5 MG DAILY 11/12 1000 AC 11/13 PO 0735 Ranolazine 500 MG BID 11/11 2199 AC 11/13 PO 0735 Results Last 48 Hrs of Labs/Mics: Laboratory Tests 11/13/17 0632: Anion Gap 13, Estimated GFR 52 L, BUN/Creatinine Ratio 23.1, Magnesium 2.1, Vitamin B12 Pending, Folate Pending, CBC w Diff NO MAN DIFF REQ, RBC 2.57 L, MCV 96.7 H, MCH 31.7 H, MCHC 32.8 L, RDW 17.7 H, MPV 10.2, Gran % 84.1 H, Lymphocytes % 9.8 L, Monocytes % 6.0, Eosinophils % 0, Basophils % 0.1, Absolute Granulocytes 9.2 H, Absolute Lymphocytes 1.1 L, Absolute Monocytes 0.7 H, Absolute Eosinophils 0, Absolute Basophils 0 11/12/17 0615: Anion Gap 12, Estimated GFR > 60, BUN/Creatinine Ratio 18.2, Troponin I < 0.01, TSH &T3 &Free T4 Intrp 0.758, Cortisol AM Sample 12.2, CBC w Diff NO MAN DIFF REQ, RBC 2.62 L, MCV 96.8 H, MCH 31.6 H, MCHC 32.6 L, RDW 17.3 H, MPV 10.1, Gran % 92.4 H, Lymphocytes % 6.9 L, Monocytes % 0.5 L, Eosinophils % 0.2, Basophils % 0, Absolute Granulocytes 8.2 H, Absolute Lymphocytes 0.6 L, Absolute Monocytes 0 L, Absolute Eosinophils 0, Absolute Basophils 0 11/11/17 2338: Troponin I < 0.01 11/11/175: Urine Color YEL, Urine Clarity CLEAR, Urine pH 6.5, Ur Specific [place] 1.010, Urine Protein NEG, Urine Ketones NEG, Urine Nitrite NEG, Urine Bilirubin NEG, Urine Urobilinogen 0.2, Ur Leukocyte Esterase NEG, Ur Microscopic EXAM NOT REQUIRED, Urine Hemoglobin NEG, Urine Glucose NEG 11/11/172114: Urine Osmolality 186 L, Ur Random Creatinine 38.3, Ur Random Sodium 11 L, Ur Random Potassium 26.3, Fraction Sodium Excret 0.2 11/11/172035: Urine Osmolality Cancelled 11/11/17 1722: Anion Gap 11, Estimated GFR > 60, BUN/Creatinine Ratio 16.4, Glucose 108 H, Serum Osmolality 278 L, Lactic Acid 1.5, Calcium 8.6, Iron 34 L, TIBC 356, Total Bilirubin 0.7, AST 11 L, ALT 22, Alkaline Phosphatase 99, Troponin I < 0.01, Pke-[id number]-Qncmvwglmws Pept 3950 H, Total Protein 5.9 L, Albumin 3.3 L, Globulin 2.6, Albumin/Globulin Ratio 1.3, CBC w Diff NO MAN DIFF REQ, RBC 2.85 L, MCV 97.4 H, MCH 31.5 H, MCHC 32.3 L, RDW 17.8 H, MPV 9.5, Gran % 75.3 H, Lymphocytes % 11.4 L, Monocytes % 12.6 H, Eosinophils % 0.5, Basophils % 0.2, Absolute Granulocytes 8.3 H, Absolute Lymphocytes 1.3, Absolute Monocytes 1.4 H, Absolute Eosinophils 0.1, Absolute Basophils 0 Microbiology 11/11 2114 URINE ROUT: Legionella Antigen - COMP 11/11 2114 URINE ROUT: Streptococcus pneumoniae Antigen (M - COMP Recent Imaging Studies: CXR 11/13/2017: 1. Central pulmonary vascular congestion in the left-sided pleural effusion are noted. 2. Increased density in the posterior aspect of the left lung base on the lateral view with poor visualization of the left hemidiaphragm on the frontal view, are concerning for a left lower lobe consolidation/infiltrate. Clinical correlation requested with follow-up to resolution recommended. Echocardiogram 11/13/2017: 1. Normal size left ventricle. Normal left ventricular wall thickness. Hypokinetic inferior wall. Mildly to moderately abnormal left ventricular ejection fraction estimated at 40%. 2. Right ventricle at upper limits of normal. 3. Normal right atrial size. 4. Moderate left atrial dilatation. 5. Mild mitral regurgitation. 6. Mild aortic stenosis. Mild aortic regurgitation. 7. Mild tricuspid regurgitation. Mild pulmonary hypertension. 8. Left pleural effusion. 9. Mildly dilated proximal ascending aorta (tube). Dilated inferior vena cava. Assessment/Plan Assessment/Plan [id number] w, hx of HTN, HLD, "borderline" DM, gout, previous TIA, PAF/flutter w /o AC, & CAD s/p remote CABG X3, and previous HF (HFrEF) who presented after being evaluated earlier by the [facility] & concerns about PNA, given c/o of SOB. Naturally, there is concern for a concomitant degree of heart failure, as well, given his complaints of lower extremities edema, orthopnea, etc. Recommendations: * Continue on telemetry. * Continue on present cardiac medications, but hold oral furosemide and give IV furosemide 40 mg twice daily and reassess the need for further IV diuresis in the a.m. * Contact Dr. Lee's office, if not already done, to determine why Mr. Peters is not on anticoagulation. * Echocardiogram to reassess left ventricular function. * Evaluate anemia and aim to maintain hemoglobin at or above 8.0 g/dl, given his history of CAD. Continue telemetry? Yes
[2017-11-13 22:42] VITALS: BP 106/76
--- NOTE | 2017-11-14 07:23 | PN- Housestaff ---
Piper THOMAS,[facility] 11/14/17 0722: Subjective Follow-up For: 1 comminuted acquired pneumonia 2 Acute on Chronic of Systolic HF 3 Atrial fibrillation 4 History of TIA 5 Chronic anemia Tele-Events Since Last Visit: Off Telemetry Subjective: patient resting Comfortably in bed. No active complaints. States he tries to keep his legs elevated at home and it helps get rid of the edema. Review of Systems Constitutional: Reports: no symptoms. EENTM: Reports: no symptoms. Cardiovascular: Reports: peripheral edema. Respiratory: Reports: short of breath. Gastrointestinal: Reports: no symptoms. Genitourinary: Reports: no symptoms. Musculoskeletal: Reports: no symptoms. Skin: Reports: no symptoms. Neurological/Psychological: Reports: no symptoms. Hematologic/Endocrine: Reports: no symptoms. Immunologic/Allergic: Reports: no symptoms. Objective Last 24 Hrs of Vital Signs/I&O Vital Signs Date Time Temp Pulse Resp B/P B/P Pulse O2 O2 Flow FiO2 Mean Ox Delivery Rate 11/14 0918 94 Nasal 4.0L Cannula 11/14 0816 86 120/64 11/14 0734 98.1 76 18 116/80 94 Nasal 4.0L Cannula 11/14 0000 93 Nasal 4.0L Cannula 11/13 2242 97.6 109 18 106/76 93 11/13 1646 108 112/64 11/13 1442 98.2 108 20 112/64 94 Nasal 3.0L Cannula Intake & Output 11/14 1600 08 0800 11/14 0000 Intake Total 100 300 Output Total 625 Balance -525 300 Intake, Oral 100 300 Output, Urine 625 Patient 252 lb 257 lb Weight Physical Exam General Appearance: Alert, Oriented X3, Cooperative, No Acute Distress Skin: No Rashes, No Breakdown Cardiovascular: Normal S1, Normal S2, Irregular Lungs: mild bibasilar crackles Abdomen: Normal Bowel Sounds, Soft, No Tenderness Extremities: No Clubbing, No Cyanosis, +2 pitting edema bilaterally Current Medications: Current Medications Sig/Sherrill Start time Last Medication Dose Route Stop Time Status Admin Allopurinol 300 MG DAILY 11/12 1000 AC 11/14 PO 0815 Amoxicillin/ 875 MG Q12 11/13 2200 AC 11/14 Clavulanate Potassium PO 0815 Ascorbic Acid 1,000 MG DAILY 11/12 1459 AC 11/14 PO 0815 Atorvastatin Calcium 20 MG 1700 11/12 1700 AC 11/13 PO 1645 Azithromycin 500 MG 1800 11/12 1800 DC 11/12 Dextrose/Water 250 ML IV 1829 Ceftriaxone Sodium 1,000 MG 1800 11/12 1800 DC 11/12 IV 1611 Diazepam 5 MG QPM PRN 11/12 1715 AC 11/13 PO 2259 Diazepam 5 MG Q6-PRN PRN 11/11 2145 AC 11/13 PO 1702 Diltiazem HCl 120 MG DAILY 11/12 1000 AC 11/14 PO 0814 Docusate Sodium 100 MG DAILY NEEDED PRN 11/13 2030 AC PO Furosemide 40 MG BID 11/13 1000 AC 11/14 IV 0814 Heparin Sodium 5,000 UNIT Q8 11/11 2200 AC 11/14 (Porcine) SC 0521 Metoprolol Tartrate 75 MG BID 11/11 2200 AC 11/14 PO 0815 Paroxetine HCl 20 MG DAILY 11/12 1000 AC 11/14 PO 0815 Polyethylene Glycol 17 GM DAILY PRN 11/13 2030 AC PO Prednisone 2.5 MG DAILY 11/12 1000 AC 11/14 PO 0815 Ranolazine 500 MG BID 11/11 2200 AC 11/14 PO 0816 Senna 187 MG AT BEDTIME PRN 11/13 2030 AC 11/13 PO 2300 Last 24 Hrs of Lab/Onesimo Results Last 24 Hrs of Labs/Mics: Laboratory Tests 11/14/17 0623: Anion Gap 12, Estimated GFR 48 L, BUN/Creatinine Ratio 23.6 Assessment/Plan Assessment: 87-year-old male with a past medical history of A. 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 Problem list: #1 Chronic resp failure on 3L of O2 at home #2 Acute on Chronic systolic HF #3 Pneumnia #2 Atrial fibrillation #3 history of TIA #4 anemia #5 Hyponatremia -Continue IV Lasix 40 mg twice a day. Will increase PO laisx to 60mg BID on discharge and outpatient follow-up with CHF clinic. - Daily weights, strict I/O's. Urine output of 1600 ml yesterday with a negative fluid balance of 390. - Continue Metoprolol and Cardizem with holding parameters. - Appreciate cardiology recommendations. - Continue Augmentin to complete a 10 day course of Abx. - Blood cultures X2 - no growth after one day. - Na 135 today, Continue 1200 ml fluid restriction and cont to monitor sodium. - Appreciate wound care consult for buttock rash/ulcer. - Continue rest of home medications. - PT recommends STR VS 24 hr care, patient prefers to go home with services. - Spoke with the patient's PCP regarding not being on anticoagulation, and was told that the anticoagulation was stopped by his country sales manager because of recurrent multiple site bleeding. DVT ppx; Hep SC Patient is full code Problem List: 1. Community acquired pneumonia 2. CHF (congestive heart failure) Pain Ratin Pain Location: None Pain Goal: Remain pain free Pain Plan: Pain pathway Tomorrow's Labs & Rationales: None Kunal THOMAS,Joni 11/14/17 1124: Attending MD Review Statement Attending Statement Attending MD Statement: examined this patient, discuss w/resident/PA/GALLERY HOST, agreed w/resident/PA/GALLERY HOST, discussed with family, reviewed EMR data (avail), discussed with nursing, discussed with case mgmt, amended to note Attending Assessment/Plan: Patient seen and examined. Resting comfortably not in any acute distress. No issues overnight. No new complaints this morning. He is diuresing appropriately and had a 2 kg weight loss overnight. He has no new complaints this morning. Denies chest pain or shortness of breath at rest. Does admit to some dyspnea with exertion. He has been seen by the physical therapy service with recommendations for discharge home with home physical services. Patient reports that this is already in place at home. On examination he is not in any respiratory distress. He has no jugular venous distention. He has adequate entry bilaterally mildly diminished sounds in the bases. Abdomen is soft and nontender. He has bilateral pedal edema. He is medically stable to be discharged home today. He will continue on Augmentin to complete a total of 10 days of antibiotic therapy for his pneumonia. He will continue on Lasix at home however we will be increasing the dose to 60 mg orally twice daily. He has been advised to follow-up with his country sales manager in the outpatient setting. I did speak with the daughter at the bedside and explained the plan of care to her.
[2017-11-14 07:34] VITALS: BP 116/80
[2017-11-14 08:16] VITALS: BP 120/64
[2017-11-14] MEDS ORDERED: LASIX40 M1 PO (08:58)
[2017-11-14] MEDS ORDERED: AMOX-CLAV 875-1 EACH PO ×2 (09:00→12:04)
--- NOTE | 2017-11-14 09:02 | Patient Discharge Instructions ---
Discharge Instructions General Discharge Information You were seen/treated for: Acute on Chronic systolic HF Community Acquired Pneumonia Watch for these problems: Please return to the ER in case of any chest pain, palpitations, worsening shortness of breath and lower extremity edema. Special Instructions: Please follow-up with your PCP within a week after discharge. Please follow-up with your buoy tender within a week after discharge. Diet Continue normal diet: Yes Recommended Diet: Heart Healthy Activity Full Activity/No Limits: Yes Activity Self Limited: Yes Acute Coronary Syndrome Inclusion Criteria At DC or during hospital stay patient has or had the following: ACS DIAGNOSIS No Discharge Core Measures Meds if any: Prescribed or Continued at Discharge Meds if any: NOT Prescribed or Continued at Discharge Congestive Heart Failure Inclusion Criteria At DC or during hospital stay patient has or had the following: CHF DIAGNOSIS Yes Discharge Core Measures Meds if any: Prescribed or Continued at Discharge Meds if any: NOT Prescribed or Continued at Discharge Cerebrovascular accident Inclusion Criteria At DC or during hospital stay patient has or had the following: CVA/TIA Diagnosis No Discharge Core Measures Meds if any: Prescribed or Continued at Discharge Meds if any: NOT Prescribed or Continued at Discharge Venous thromboembolism Inclusion Criteria VTE Diagnosis No VTE Type NONE VTE Confirmed by (Test) EXT BILATERAL VENOUS DOPP Discharge Core Measures - Per Current guidelines, there needs to be overlap - treatment for the first 5 days of Warfarin therapy. - If discharged on Warfarin prior to 5 days of - overlap therapy, the patient will need to be - assessed for post discharge needs including - *Post discharge parental anticoagulation - *Warfarin and/or parental anticoagulation education - *Follow up date to check INR post discharge At least 5 days overlap therapy as Inpatient No Meds if any: Prescribed or Continued at Discharge Note: Overlap Therapy is Warfarin and Anticoagulant Meds if any: NOT Prescribed or Continued at Discharge
--- NOTE | 2017-11-14 10:45 | Discharge Summary ---
Visit Information Visit Dates Admission Date: 11/11/17 Discharge Date: 11/14/17 Hospital Course Course Attending Physician: Joni Syed MD Primary Care Physician: Dulce THOMAS,[facility] Course: 87-year-old male with a past medical history of A. 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 Problem list: #1 Chronic resp failure on 3L of O2 at home #2 Acute on Chronic systolic HF #3 Pneumnia #4 Atrial fibrillation #5 history of TIA #6 Chronic Anemia #5 Hyponatremia -Continue IV Lasix 40 mg twice a day. Will increase PO laisx to 60mg BID on discharge and outpatient follow-up with CHF clinic. - Daily weights, strict I/O's. Urine output of 1600 ml yesterday with a negative fluid balance of 390. - Continue Metoprolol and Cardizem with holding parameters. - Appreciate cardiology recommendations. - Continue Augmentin to complete a 10 day course of Abx. - Blood cultures X2 - no growth after one day. - Na 135 today, Continue 1200 ml fluid restriction and cont to monitor sodium. - Appreciate wound care consult for buttock rash/ulcer. - Continue rest of home medications. - PT recommends STR VS 24 hr care, patient prefers to go home with services. - Spoke with the patient's PCP regarding not being on anticoagulation, and was told that the anticoagulation was stopped by his proofer prepress because of recurrent multiple site bleeding. Allergies: Coded Allergies: NO KNOWN ALLERGIES (12/22/14) Significant Procedures: XRY-PORTABLE CHEST XRAY 11/11/17 IMPRESSION: 1. A mild right perihilar and basilar infiltrate is suspected. This could be more fully evaluated with repeat 2 view chest radiographs at a greater depth of inspiration. Recommend short-term follow-up chest radiographs to ensure clearance and exclude the possibility of underlying obstructive process. 2. There is a small right pleural effusion. 3. Examination limited by low lung volumes and body habitus. US-EXT BILAT VENOUS DOPPLER IMPRESSION: Normal triplex scan without evidence of deep venous thrombosis involving the lower extremities. ECHOCARDIOGRAM CONCLUSIONS Normal size left ventricle. Normal left ventricular wall thickness. Hypokinetic inferior wall. Mildly to moderately abnormal left ventricular ejection fraction estimated at 40%. Right ventricle at upper limits of normal. Normal right atrial size. Moderate left atrial dilatation. Mild mitral regurgitation. Mild aortic stenosis. Mild aortic regurgitation. Mild tricuspid regurgitation. Mild pulmonary hypertension. Left pleural effusion. Mildly dilated proximal ascending aorta (tube). Dilated inferior vena cava. XRY-CHEST XRAY 11/13/17 IMPRESSION: 1. Central pulmonary vascular congestion in the left-sided pleural effusion are noted. 2. Increased density in the posterior aspect of the left lung base on the lateral view with poor visualization of the left hemidiaphragm on the frontal view, are concerning for a left lower lobe consolidation/infiltrate. Clinical correlation requested with follow-up to resolution recommended. Disposition Summary Disposition Principal Diagnosis: Acute on Chronic systolic HF Additional Diagnosis: Community Acquired Pneumonia Discharge Disposition: home health services Discharge Instructions General Discharge Information Code Status: Full Code Patient's Diet: Heart Healthy Patient's Activity: As Tolerated Follow-Up Instructions/Appts: Please follow-up with your PCP within a week after discharge. Please follow-up with your proofer prepress within a week after discharge. Medications at Discharge Discharge Medications: Stop taking the following medications: Furosemide (Lasix) 20 MG TABLET ORAL DAILY Continue taking these medications: Atorvastatin Calcium (Lipitor) 20 MG TABLET 1 Tablet ORAL Every night Paroxetine HCl (Paroxetine HCl) 20 MG TABLET 1 Tablet ORAL DAILY Diazepam (Diazepam) 5 MG TABLET 1 Tablet ORAL EVERY 6 HOURS NEEDED as needed for SPASMS Allopurinol (Allopurinol) 300 MG TABLET 1 Tablet ORAL DAILY Diltiazem HCl (Diltiazem 24HR ER) 120 MG CAP.ER.24H 1 Capsule ORAL DAILY Qty = 30 Acetaminophen (Acetaminophen) 500 MG TABLET 2 Tablet ORAL EVERY 8 HOURS Diazepam (Diazepam) 5 MG TABLET 1 Tablet ORAL Every night Polyethylene Glycol 3350 (Miralax) 17 GRAM/DOSE POWDER 17 Gram ORAL DAILY as needed for CONSTIPATION Instructions: mix with water, juice, soda, coffee or tea Prednisone (Prednisone) 2.5 MG TABLET 1 Tablet ORAL DAILY Ranolazine (Ranexa) 500 MG TAB.ER.12H 1 Tablet ORAL TWICE DAILY Qty = 60 Ascorbic Acid (Vitamin C) 1,000 MG TABLET 1 Tablet ORAL DAILY Metoprolol Tartrate (Metoprolol Tartrate) 25 MG TABLET 3 Tablet ORAL TWICE DAILY Qty = 540 Start taking the following new medications: Amoxicillin/Clavulanate Potass (Amox-Clav 875-125 MG Tablet) 875 MG-125 MG TABLET 1 Tablet ORAL EVERY 12 HOURS Qty = 13 No Refills Furosemide (Lasix) 40 MG TABLET 1.5 Tablet ORAL TWICE DAILY Qty = 90 No Refills Copies To: Harry THOMAS,Eyal Shea; Dulce THOMAS,Marti Attending MD Review Statement Documenting Attending: Joni Syed MD Other Findings: Medically stable to be discharged today.
[2017-11-14] MEDS ORDERED: LASIX20 M1 PO ×2 (12:02→12:04)
== END 2017-11-14 15:30 | disposition home health service (06) | DRG 291 ==
LOC: ERH 15:49 → 1NO 18:08 → ERHI 18:08 → ENRESERV 19:38 → ENTRNSPT 21:31 → EDTRNSPTSTS 21:46 → EDTRNSPT 21:46 → CMPTRNSPT 22:01 → 1NO 22:24 → ENPENDDIS 11-14 15:16 → 1NO 11-14 15:30
PROVIDERS: Internal Medicine; Internal Medicine Endocrinology, Diabetes & Metabolism; Physician Assistant Medical
DX: I50.23 Acute on chronic systolic (congestive) heart failure (principal); J18.9 Pneumonia, unspecified organism; J96.21 Acute and chronic respiratory failure with hypoxia; L89.322 Pressure ulcer of left buttock, stage 2; Z99.81 Dependence on supplemental oxygen; D53.9 Nutritional anemia, unspecified; E11.9 Type 2 diabetes mellitus without complications; I48.92 Unspecified atrial flutter; I48.0 Paroxysmal atrial fibrillation; E87.1 Hypo-osmolality and hyponatremia; K57.92 Diverticulitis of intestine, part unspecified, without perforation or abscess without bleeding; Z79.01 Long term (current) use of anticoagulants; I11.0 Hypertensive heart disease with heart failure; E66.9 Obesity, unspecified; Z68.37 Body mass index [BMI] 37.0-37.9, adult; Z95.1 Presence of aortocoronary bypass graft; I25.10 Atherosclerotic heart disease of native coronary artery without angina pectoris; Z86.73 Personal history of transient ischemic attack (TIA), and cerebral infarction without residual deficits; G57.60 Lesion of plantar nerve, unspecified lower limb; E78.5 Hyperlipidemia, unspecified; M19.90 Unspecified osteoarthritis, unspecified site
CPT/HCPCS: 1NSP; 84133; 84300; 36592; 71045; 71046; 81003; 82436; 82570; 87040; 87070; 87449; 87450; 93005; 93010; 93306; 93970; 97110-GO; 97161-GP; 97530-GO; J0456; J0696; J1644; J1940; J2930; J7060

== ENCOUNTER 2018-01-28 12:27 | Inpatient (IN) | payer OTHER, MEDICARE ==
[~2018-01-28] VITALS: Ht 172.7 cm; Wt 93.5 kg
[~2018-01-28 12:27] MED LIST changes: +AMOX-CLAV 875-1 EACH PO; +LASIX40 M1 PO
--- NOTE | 2018-01-28 13:11 | ED SYNCOPE COMPLAINT ---
History of Present Illness General Chief Complaint: Syncope and Near-Syncope Stated Complaint: BIBA SYNCOPE Source: patient Exam Limitations: no limitations Vital Signs & Intake/Output Vital Signs & Intake/Output Vital Signs Date Time Temp Pulse Resp B/P B/P Pulse O2 O2 Flow FiO2 Mean Ox Delivery Rate 01/28 1354 100 Nasal 3.0L Cannula 01/28 1352 97.8 57 20 108/53 100 Nasal 3.0L Cannula 01/28 1233 97.7 62 20 122/59 97 Nasal 3.0L Cannula Allergies Coded Allergies: NO KNOWN ALLERGIES (12/22/14) Reconcile Medications Acetaminophen 500 MG TABLET 2 TAB PO Q8 PRN PAIN (Reported) Ascorbic Acid (Vitamin C) 1,000 MG TABLET 1 TAB PO DAILY VITAMIN SUPPORT ( Reported) Atorvastatin Calcium (Lipitor) 20 MG TABLET 1 TAB PO QPM CHOLESTEROL ( Reported) Diazepam 5 MG TABLET 1 TAB PO Q6-PRN PRN SPASMS (Reported) Diltiazem HCl (Diltiazem 24HR ER) 120 MG CAP.ER.24H 1 CAP PO DAILY HEART ( Reported) Furosemide 20 MG TABLET 2 TAB PO DAILY WATER RETENTION (Reported) Metoprolol Tartrate 25 MG TABLET 3 TAB PO BID HEART (Reported) Paroxetine HCl 20 MG TABLET 1 TAB PO DAILY ANXIETY (Reported) Polyethylene Glycol 3350 (Miralax) 17 GRAM/DOSE POWDER 17 GM PO DAILY PRN CONSTIPATION (Reported) mix with water, juice, soda, coffee or tea Potassium Chloride 20 MEQ TAB.ER.PRT 1 TAB PO DAILY SUPPLEMENT (Reported) Prednisone 2.5 MG TABLET 0.5 TAB PO DAILY STEROID (Reported) Ranolazine (Ranexa) 500 MG TAB.ER.12H 1 TAB PO BID HEART (Reported) Triage Note: PT ANA FROM MD'S OFFICE FOR NEAR SYNCOPE. PT WAS AT DR FRY'S OFFICE IN [place] FOR EVAL OF BED SORE. UPON STANDING UP SO THE DR COULD ASSESS THE WOUND, PT'S LEGS GAVE OUT AND HE WAS LOWERED TO THE GROUND BY THE DOCTOR. NO HEADSTRIKE. PT IS ON 3LNC AT BASELINE. ARRIVES TO ED A/O X3, DENIES ANY PAIN. EKG IN PROGRESS. VSS. FINGERSTICK 131. PT AWAITS PROVIDER EVAL. Triage Nurses Notes Reviewed? yes Timing: single episode today Loss of Consciousness: brief (seconds) HPI: Patient presents for evaluation of an abrupt onset of syncope while at his doctor's office. The event occurred shortly prior to arrival. The patient states he was trying to get up from a wheelchair when he "collapsed" and became "unresponsive". He denies any associated chest pain palpitations or prior episodes. He has no specific complaints currently. There appears to have been no traumatic injuries as the result of his collapse. (Dm Otto MD) Past History Travel History Traveled to [place] past 21 day No Medical History Any Pertinent Medical History? see below for history Neurological: TIA EENT: NONE Cardiovascular: CHF, hypertension, myocardial infarction Respiratory: pneumonia Gastrointestinal: diverticulitis Hepatic: NONE Renal: NONE Musculoskeletal: osteoarthritis Psychiatric: NONE Endocrine: NONE Blood Disorders: NONE Cancer(s): NONE STATOR CONNECTOR/Reproductive: NONE History of MRSA: No History of VRE: No History of CDIFF: No Influenza Vaccine: 07/10/17 Surgical History Surgical History: CABG (1985 X 3) Psychosocial History Who do you live with Patient/Self Services at Home None What is your primary language Italian Tobacco Use: Quit >30 days ago ETOH Use: denies use Illicit Drug Use: denies illicit drug use Family History Family History, If Any: FATHER FH: CAD (coronary artery disease) (Dm Otto MD) Family History Hx Contributory? No (Dm Daniels DO) Review of Systems Review of Systems Constitutional: Reports: no symptoms. EENTM: Reports: no symptoms. Respiratory: Reports: no symptoms. Cardiovascular: Reports: syncope. GI: Reports: no symptoms. Genitourinary: Reports: no symptoms. Musculoskeletal: Reports: no symptoms. Skin: Reports: no symptoms. Neurological/Psychological: Reports: no symptoms. All Other Systems: Reviewed and Negative (Dm Otto MD) Physical Exam Physical Exam Cranial Nerves: SEE BELOW Comments: Gen.: Well-nourished, well-developed, no acute respiratory distress. Head: Normocephalic, atraumatic. Eyes: Normal inspection bilaterally Ears: Normal inspection bilaterally Nose: Normal inspection Throat/mouth : Moist mucosa Neck: Supple, full range of motion, no goiter Heart: Regular rate and rhythm, systolic murmur heard best at the right upper sternal border Lungs: Clear to auscultation bilaterally with normal air entry Chest: Nontender Back: Normal range of motion Abdomen: Soft, nontender, nondistended, normal bowel sounds Extremities: Normal range of motion grossly, equal radial pulses with delayed upstroke, no cyanosis, mild pretibial pitting edema bilaterally, calves nontender Neurologic: Cranial nerves grossly intact, speech is clear Skin: warm and dry Psychiatric: Calm, cooperative, no apparent delusions or hallucinations Core Measures ACS in differential dx? Yes CVA/TIA Diagnosis: No Sepsis Present: No Sepsis Focused Exam Completed? No (Clarita THOMAS,Dm Joe) Progress Differential Diagnosis: AMI, orthostatic syncope, TIA/CVA, vasodepressor syncope , ventricular tach/fib, DEHYDRATION, ELECTROLYTE ABNORMALITY (Clarita THOMAS,Dm Joe) Plan of Care: Orders Procedure Date/time Status TSH REFLEX 01/29 0600 Active Heart Healthy Diet 01/28 D Active Patient Data 01/28 1603 Active ED Holding Orders 01/28 1553 Active Admit to inpatient 01/28 1553 Active Vital Signs 01/28 1553 Active Code Status 01/28 1553 Active Saline Lock 01/28 1315 Active MISTAKE 01/28 1315 Active Telemetry/Gift Shop Clerk 01/28 1315 Active TROPONIN LEVEL 01/28 1315 Complete COMPREHENSIVE METABOLIC PANEL 01/28 1315 Complete CBC WITHOUT DIFFERENTIAL 01/28 1315 Complete EKG 01/28 1235 Active Laboratory Tests 01/28/18 1315: Anion Gap 11, Estimated GFR 44 L, BUN/Creatinine Ratio 16.0, Glucose 114 H, Calcium 8.5, Total Bilirubin 1.2, AST 19, ALT 26, Alkaline Phosphatase 98, Troponin I 0.02, Total Protein 6.1 L, Albumin 3.3 L, Globulin 2.8, Albumin/ Globulin Ratio 1.2, CBC w Diff NO MAN DIFF REQ, RBC 2.82 L, MCV 95.2 H, MCH 31.1 H, MCHC 32.7 L, RDW 20.1 H, MPV 10.1, Gran % 65.0, Lymphocytes % 19.5 L , Monocytes % 14.8 H, Eosinophils % 0.6, Basophils % 0.1, Absolute Granulocytes 4.4, Absolute Lymphocytes 1.3, Absolute Monocytes 1.0 H, Absolute Eosinophils 0 , Absolute Basophils 0 (Dm Daniels DO) Departure Departure Disposition: STILL A PATIENT Condition: Stable Clinical Impression Primary Impression: Syncope Secondary Impressions: Anemia, Renal insufficiency Referrals: Marti Cardona MD (PCP/Family) Departure Forms: Customer Survey General Discharge Information (Clarita THOMAS,Dm Joe) Departure Comments 01/28/18 S.O. TO ME PENDING ADMISSION. Admission Note Spoke With: Kameron THOMAS,Delvis Documentation of Exam: Documentation of any treatments & extenuating circumstances including Concerns Regarding Discharge (functional status, medication knowledge or non-compliance, living conditions, etc.) that warrant an admission rather than observation: [The patient needs admission for serial troponins, telemetry monitoring, repeat CBC] (Dm Daniels DO)
[2018-01-28 13:27] LABS: ABSOLUTE BASOPHIL COUNT 0 /CUMM (0.0-0.2); ABSOLUTE EOSINOPHIL COUNT 0 /CUMM (0.0-0.7); ABSOLUTE GRANULOCYTE CT 4.4 /CUMM (1.4-6.5); ABSOLUTE LYMPH COUNT 1.3 /CUMM (1.2-3.4); BASOPHIL % 0.1 % (0.0-2.0); EOSINOPHIL % 0.6 % (0-5); HEMATOCRIT 26.9 % (42-52); MEAN CORPUSCULAR HGB 31.1 PG (27.0-31.0); MEAN CORPUSCULAR HGB CONC 32.7 G/DL (33.0-37.0); MEAN CORPUSCULAR VOLUME 95.2 FL (80.0-94.0); MEAN PLATELET VOLUME 10.1 FL (7.4-10.4); PLATELET COUNT 124 /CUMM (130-400); RBC DISTRIBUTION WIDTH 20.1 % (11.5-14.5); RED BLOOD CELL CT 2.82 /CUMM (4.70-6.10); WHITE BLOOD CELL COUNT 6.8 /CUMM (4.8-10.8)
[2018-01-28] MEDS ORDERED: POTASSIUM CHLO20 ME2 PO (13:28)
[2018-01-28] MEDS ORDERED: FUROSEMIDE20 M1 PO (13:29)
--- NOTE | 2018-01-28 14:52 | RADIOLOGY REPORT ---
EXAMINATION: XR PORTABLE CHEST CLINICAL INFORMATION: Syncope. COMPARISON: 11/13/2017 TECHNIQUE: Portable frontal view of the chest was obtained. FINDINGS: Median sternotomy wires appear intact. Cardiac leads overlie the chest. Lung volumes are low. Linear left basilar atelectasis/scarring. No pneumothorax. No pleural effusion. The cardiomediastinal silhouette is unchanged, with a calcified aorta. IMPRESSION: No acute pulmonary finding.
--- NOTE | 2018-01-28 16:38 | History & Physical ---
Jeni THOMAS,[facility] 01/28/18 2378: General Information and HPI MD Statement: I have seen and personally examined YARELI SONG and documented this H& P. The patient is a 87 year old M who presented with a patient stated chief complaint of [near syncope]. Source of Information: patient, family Exam Limitations: no limitations History of Present Illness: 87-year-old male with a past medical history of paroxysmal A. fib not on AC ( history of hematuria), NM, CAD status post CABG, TIA, CHF, hypertension, OA, on 3L of oxygen at baseline and Hi's neuroma was brought to the ED from his doctor's office after he had an episode of near syncope. History has been obtained from the patient and his daughter present at bedside. The patient was recently discharged from [facility] after which he has been mostly bedbound with subsequent deconditioning. He developed a ulcer on his right buttock. Today he went to see Dr Munson. In his office, while getting up from the wheelchair, the patient fell down as his knees gave away. He denies any lightheadedness, dizziness, chest pain, palpitations or feeling of warmth/flushing prior to his fall. The daughter states that he did answer back for a few seconds and that it was difficult to know if he had a near syncopal episode or actually passed out. No prior episodes of falls. The patient currently uses a wheelchair to ambulate. He does report weakness in his right leg. Allergies/Medications Allergies: Coded Allergies: NO KNOWN ALLERGIES (12/22/14) Home Med list Acetaminophen 500 MG TABLET 2 TAB PO Q8 PRN PAIN (Reported) Ascorbic Acid (Vitamin C) 1,000 MG TABLET 1 TAB PO DAILY VITAMIN SUPPORT ( Reported) Atorvastatin Calcium (Lipitor) 20 MG TABLET 1 TAB PO QPM CHOLESTEROL ( Reported) Diazepam 5 MG TABLET 1 TAB PO Q6-PRN PRN SPASMS (Reported) Diltiazem HCl (Diltiazem 24HR ER) 120 MG CAP.ER.24H 1 CAP PO DAILY HEART ( Reported) Furosemide 20 MG TABLET 2 TAB PO BID Heart (Reported) Metoprolol Tartrate 25 MG TABLET 3 TAB PO BID HEART (Reported) Paroxetine HCl 20 MG TABLET 1 TAB PO DAILY ANXIETY (Reported) Polyethylene Glycol 3350 (Miralax) 17 GRAM/DOSE POWDER 17 GM PO DAILY PRN CONSTIPATION (Reported) mix with water, juice, soda, coffee or tea Potassium Chloride 20 MEQ TAB.ER.PRT 1 TAB PO DAILY SUPPLEMENT (Reported) Prednisone 2.5 MG TABLET 0.5 TAB PO DAILY STEROID (Reported) Ranolazine (Ranexa) 500 MG TAB.ER.12H 1 TAB PO BID HEART (Reported) Past History Travel History Traveled to [place] past 21 day No Medical History Neurological: TIA EENT: NONE Cardiovascular: CHF, hypertension, myocardial infarction Respiratory: pneumonia Gastrointestinal: diverticulitis Hepatic: NONE Renal: NONE Musculoskeletal: osteoarthritis Psychiatric: NONE Endocrine: NONE Blood Disorders: NONE Cancer(s): NONE SUSTAINABILITY DIRECTOR/Reproductive: NONE History of MRSA: No History of VRE: No History of CDIFF: No Influenza Vaccine: 07/10/17 Surgical History Surgical History: CABG (1985 X 3) Past Family/Social History Family History Relations & Conditions if any FATHER FH: CAD (coronary artery disease) Psychosocial History Services at Home: None ETOH Use: denies use Illicit Drug Use: denies illicit drug use Review of Systems Review of Systems Constitutional: Denies: chills, fever. EENTM: Reports: no symptoms. Cardiovascular: Denies: chest pain, palpitations. Respiratory: Denies: cough, short of breath. GI: Reports: no symptoms. Genitourinary: Reports: no symptoms. Musculoskeletal: Reports: joint pain. Skin: Reports: no symptoms. Neurological/Psychological: Reports: no symptoms. Exam & Diagnostic Data Last 24 Hrs of Vital Signs/I&O Vital Signs Date Time Temp Pulse Resp B/P B/P Pulse O2 O2 Flow FiO2 Mean Ox Delivery Rate 01/28 1611 97.7 70 18 110/54 100 Nasal 3.0L Cannula 01/28 1354 100 Nasal 3.0L Cannula 01/28 1352 97.8 57 20 108/53 100 Nasal 3.0L Cannula 01/28 1233 97.7 62 20 122/59 97 Nasal 3.0L Cannula Intake & Output 01/28 1600 01/28 0800 01/28 0000 Intake Total Output Total Balance Patient 220 lb Weight Weight Reported by Patient Measurement Method Physical Exam General Appearance Alert, Oriented X3, Cooperative, Mild Distress Skin ulcer on right buttock Skin Temp/Moisture Exam: Cool/Dry Sepsis Skin Exam (color): Normal for Ethnicity HEENT Atraumatic Cardiovascular Normal S1, Normal S2, MARCE Lungs Clear to Auscultation, Normal Air Movement Abdomen Soft, No Tenderness Neurological Normal Speech Extremities No Edema Assessment/Plan Assessment: 87-year-old male with a past medical history of A. fib, NM, CAD status post CABG , TIA, CHF, hypertension, OA and Do's neuroma was brought to the ED from his doctor's office after he had an episode of near syncope. Assessment: 1. Near Syncope 2. Stage II Decubitus Ulcer 3. STAS 4. Chronic Thrombocytopenia 5. History of CHF 6. History of hypertension 7. History of CAD Plan: * Admit patient to telemetry for monitoring of arrhythmias * R/o ACS with serial troponins and EKGs * Cardiology consult in am with Dr Mcdonald * Orthostatic blood pressure * Will hold Lasix for now * Would hold metoprolol and CCB as well for now and restart as tolerated. He would require dose adjustments. * Continue Ranolazine for now. * Patient takes Valium 5mg TID. Would continue now as abrupt discontinuation could precipitate withdrawal. * Wound consult in am with Dr Araiza * His Thrombocytopenia does not appear to be new. His old records show trends of normal to low platelets. Unclear etiology at this time. * PT/OT eval in am * Diet: Heart Healthy * DVT Prophylaxis: ALPS only (thrombocytopenia) * Code: Full Code As Ranked By This Provider Problem List: 1. Syncope Core Measures/Misc (05/26) Acute Coronary Syndrome ACS Diagnosis: No Congestive Heart Failure Congestive Heart Failure Diagnosis No Cerebrovascular Accident CVA/TIA Diagnosis: No VTE (View Protocol) VTE Risk Factors Age>40 No Mechanical VTE Prophylaxis d/t N/A MechProphylax Ordered No VTE Pharm Prophylaxis d/t Medical Contraindication Sepsis (View protocol) Sepsis Present: No If YES complete Sepsis Event Note If YES complete Sepsis Event Note Faye Mayers 01/28/18 0839: Core Measures/Misc (05/26) Sepsis (View protocol) If YES complete Sepsis Event Note If YES complete Sepsis Event Note Resident Review Statement Resident Statement: examined this patient, discussed with commander internal affairs, agreed with commander internal affairs, discussed with family, reviewed EMR data (avail) Other Findings: This is a 87-year-old male with PMH significant for A. fib not on anticoagulation, CAD status post CABG, TIA, CHF, hypertension, myocardial infarction, pneumonia, diverticulitis and osteoarthritis who was sent to the hospital from PCP's office for further evaluation of a presyncopal episode. Per patient's daughter, after his discharge form [facility], he was not ambulating for 3 months and had decline in his functional status. He developed a decubitus ulcer on his right bottock. He went to see his PCP today and had a pre syncopal episode in the office. At the time of our interview, he denies any CP, SOB, headache, n/v/abdominal pain. Please see above for more details. According to patient's daughter, he used to be on Eliquis for atrial fibrillation which was stopped a few months ago for hematuria. Physical exam on admission: Temperature 98.3, pulse rate 57, respiratory rate 18 , blood pressure 122/78, oxygen saturation 99% on 3 L nasal cannula oxygen. NAD , AO 3, HEENT: H NCAT, PERRLA, EOMI, normal pharynx. Neck: Supple, no JVD, no carotid bruit, Lungs: CTA BL. CV: RRR, no murmur. Abdomen: Normal bowel sounds , soft, NT, ND. Extremities: No edema, pulses normal and symmetrical. Neurology: Without focal neurologic deficits. Skin: 24 cm decubitus ulcer right buttock Sinus rhythm, rate 58, T-wave flattening, no significant ST-T wave abnormality compared to prior EKG. Chest x-ray without any acute abnormality. Problem list: #Presyncopal episodes #Deconditioning/decubitus ulcer #History of atrial fibrillation not on anticoagulation due to history of hematuria #Pancytopenia: Leukopenia and anemia close to baseline, thrombocytopenia noted in labs April 2017, December 2014 #Elevated creatinine/BUN: Stable from labs in November 2017 #CHF, hypertension, CAD Plan: Adjust the dose based on cardiology recommendation, the patient may benefit from decreasing the dose of diltiazem and metoprolol lightheadedness and presyncopal episodes, would not stop this medication abruptly however would decrease the dose.
[2018-01-28 17:45] VITALS: BP 122/78
--- NOTE | 2018-01-28 17:59 | PN- Att Addend ---
Attending Addendum Attending Brief Note Patient seen and examined in the emergency room. Patient's daughter was at the bedside. Plan of care discussed with the medical team and the patient. Available lab work and radiology test reports were reviewed. In summary this is 87-year-old male with history of CHF, hypertension, myocardial infarction, pneumonia, diverticulitis and osteoarthritis who after recent hospitalization in [place] had functional decline and has been not able to walk. He had developed a decubitus ulcer in the right buttock area for which he went to see his PCP today. In the medical office when he tried to stand up he felt lightheaded and he was eased to floor and then transferred to emergency room. Patient was does not describe any recent fever chills nausea vomiting abdominal pain chest pain or difficulty breathing. Patient has been doing home physical therapy. Exam: General: Patient awake appears lethargic and oriented without any distress CVS: S1 plus S2 without any murmur or gallops Chest: Few scattered crepitation without any wheeze. There is no respiratory distress. Abdomen: Soft non-tender, bowel sound present, no guarding or rebound TUB OPERATOR: Awake alert oriented without any focal neuro deficit and follows commands appropriately Extremities: Trace bilateral edema; no clubbing or cyanosis noted Assessment * Near syncope and dizziness * Chronic anemia with elevated MCV * Thrombocytopenia of unclear etiology * Chronic renal insufficiency slightly worse than baseline * History of CHF * History of hypertension * History of CAD Plan * Admit to telemetry * Check orthostatic BP * Physical therapy evaluation in a.m. * Rule out HI protocol * Hold Lasix for now * I will suggest allowing his a BP to rise up to reduce lightheadedness by cutting down his Cardizem and Lopressor Laboratory Tests 01/28/18 1315: Anion Gap 11, Estimated GFR 44 L, BUN/Creatinine Ratio 16.0, Glucose 114 H, Calcium 8.5, Total Bilirubin 1.2, AST 19, ALT 26, Alkaline Phosphatase 98, Troponin I 0.02, Total Protein 6.1 L, Albumin 3.3 L, Globulin 2.8, Albumin/ Globulin Ratio 1.2, CBC w Diff NO MAN DIFF REQ, RBC 2.82 L, MCV 95.2 H, MCH 31.1 H, MCHC 32.7 L, RDW 20.1 H, MPV 10.1, Gran % 65.0, Lymphocytes % 19.5 L , Monocytes % 14.8 H, Eosinophils % 0.6, Basophils % 0.1, Absolute Granulocytes 4.4, Absolute Lymphocytes 1.3, Absolute Monocytes 1.0 H, Absolute Eosinophils 0 , Absolute Basophils 0 Vital Signs Date Time Temp Pulse Resp B/P B/P Pulse O2 O2 Flow FiO2 Mean Ox Delivery Rate 01/28 1745 98.3 57 18 122/78 99 Nasal 3.0L Cannula 01/28 1740 100 Nasal 3.0L Cannula 01/28 1611 97.7 70 18 110/54 100 Nasal 3.0L Cannula 01/28 1354 100 Nasal 3.0L Cannula 01/28 1352 97.8 57 20 108/53 100 Nasal 3.0L Cannula 01/28 1233 97.7 62 20 122/59 97 Nasal 3.0L Cannula Intake & Output 01/28 1600 01/28 0800 01/28 0000 Intake Total Output Total Balance Patient 220 lb Weight Weight Reported by Patient Measurement Method Coded Allergies: NO KNOWN ALLERGIES (12/22/14) Reconcile Medications Acetaminophen 500 MG TABLET 2 TAB PO Q8 PRN PAIN (Reported) Ascorbic Acid (Vitamin C) 1,000 MG TABLET 1 TAB PO DAILY VITAMIN SUPPORT ( Reported) Atorvastatin Calcium (Lipitor) 20 MG TABLET 1 TAB PO QPM CHOLESTEROL ( Reported) Diazepam 5 MG TABLET 1 TAB PO Q6-PRN PRN SPASMS (Reported) Diltiazem HCl (Diltiazem 24HR ER) 120 MG CAP.ER.24H 1 CAP PO DAILY HEART ( Reported) Furosemide 20 MG TABLET 2 TAB PO DAILY WATER RETENTION (Reported) Metoprolol Tartrate 25 MG TABLET 3 TAB PO BID HEART (Reported) Paroxetine HCl 20 MG TABLET 1 TAB PO DAILY ANXIETY (Reported) Polyethylene Glycol 3350 (Miralax) 17 GRAM/DOSE POWDER 17 GM PO DAILY PRN CONSTIPATION (Reported) mix with water, juice, soda, coffee or tea Potassium Chloride 20 MEQ TAB.ER.PRT 1 TAB PO DAILY SUPPLEMENT (Reported) Prednisone 2.5 MG TABLET 0.5 TAB PO DAILY STEROID (Reported) Ranolazine (Ranexa) 500 MG TAB.ER.12H 1 TAB PO BID HEART (Reported) Medical History Any Pertinent Medical History? see below for history Neurological: TIA EENT: NONE Cardiovascular: CHF, hypertension, myocardial infarction Respiratory: pneumonia Gastrointestinal: diverticulitis Hepatic: NONE Renal: NONE Musculoskeletal: osteoarthritis Psychiatric: NONE Endocrine: NONE Blood Disorders: NONE Cancer(s): NONE FAMILY SERVICES SPECIALIST/Reproductive: NONE History of MRSA: No History of VRE: No History of CDIFF: No Influenza Vaccine: 07/10/17 Surgical History Surgical History: CABG (1985 X 3) Psychosocial History Who do you live with Patient/Self Services at Home None What is your primary language Polish Tobacco Use: Quit >30 days ago ETOH Use: denies use Illicit Drug Use: denies illicit drug use Family History Family History, If Any: FATHER FH: CAD (coronary artery disease)
--- NOTE | 2018-01-28 18:00 | Admission Certification ---
Admission Certification Certification Statement - As attending physician, I certify that at the time of - admission, based on clinical presentation, severity of - symptoms, need for further diagnostic testing and - therapeutic interventions, and risk of adverse outcomes - without in-hospital treatment, in my clinical assessment, - this patient requires an acute hospital stay for a minimum - of two nights or longer. I have also considered psychsocial - factors such as support system, advanced age, financial - issues, cognitive issues, and failed out-patient treatments, - past re-admission history, safety of patient, and lack of - compliance as applicable. Specific rationale supporting this admission is: Lightheadedness and dehydration
[2018-01-28 23:26] VITALS: BP 102/60
[2018-01-29 06:47] VITALS: BP 100/62
--- NOTE | 2018-01-29 07:08 | PN- Housestaff ---
Jeni THOMAS,[facility] 01/29/18 0708: Subjective Follow-up For: Near Syncope Tele-Events Since Last Visit: SB/NSR with HR 58-61. No overnight events. Subjective: Feels well. Complains of pain in his right knee with significant difficulty moving his leg. Is unsure why he is on oxygen. Does not feel short of breath. Review of Systems Constitutional: Reports: no symptoms. Objective Last 24 Hrs of Vital Signs/I&O Vital Signs Date Time Temp Pulse Resp B/P B/P Pulse O2 O2 Flow FiO2 Mean Ox Delivery Rate 01/29 0840 69 100/62 01/29 0800 100 Nasal 3.0L Cannula 01/29 0647 97.8 69 20 100/62 100 Nasal Cannula 01/29 0000 Nasal 3.0L Cannula 01/28 2326 98.1 62 18 102/60 99 Nasal 3.0L Cannula 01/28 1745 98.3 57 18 122/78 99 Nasal 3.0L Cannula 01/28 1740 100 Nasal 3.0L Cannula 01/28 1611 97.7 70 18 110/54 100 Nasal 3.0L Cannula 01/28 1354 100 Nasal 3.0L Cannula 01/28 1352 97.8 57 20 108/53 100 Nasal 3.0L Cannula 01/28 1233 97.7 62 20 122/59 97 Nasal 3.0L Cannula Intake & Output 01/29 1600 01/29 0800 01/29 0000 Intake Total 100 50 Output Total 550 Balance -450 50 Intake, Oral 100 50 Output, Urine 550 Patient 209 lb Weight Physical Exam General Appearance: Alert, Oriented X3, Cooperative, Mild Distress Skin: No Rashes, No Breakdown Skin Temp/Moisture Exam: Warm/Dry Sepsis Skin Exam (color): Normal for Ethnicity HEENT: Atraumatic Cardiovascular: Normal S1, Normal S2, MARCE Lungs: Clear to Auscultation, Normal Air Movement Abdomen: Soft, No Tenderness Neurological: Normal Speech Extremities: No Edema Last 24 Hrs of Lab/Onesimo Results Last 24 Hrs of Labs/Mics: Laboratory Tests 01/29/18 1017: Anion Gap 10, Estimated GFR 48 L, BUN/Creatinine Ratio 14.3, Magnesium Pending, CBC w Diff NO MAN DIFF REQ, RBC 2.76 L, MCV 95.9 H, MCH 31.0, MCHC 32.3 L, RDW 19.7 H, MPV 10.8 H, Gran % 47.6, Lymphocytes % 23.8, Monocytes % 27.4 H, Eosinophils % 0.8, Basophils % 0.4, Absolute Granulocytes 3.7, Absolute Lymphocytes 1.9, Absolute Monocytes 2.2 H, Absolute Eosinophils 0.1, Absolute Basophils 0 01/29/18 0637: TSH &T3 &Free T4 Intrp 0.596 01/29/18 0150: Troponin I 0.02 01/28/18 1940: Troponin I 0.01 01/28/18 1315: Anion Gap 11, Estimated GFR 44 L, BUN/Creatinine Ratio 16.0, Glucose 114 H, Calcium 8.5, Total Bilirubin 1.2, AST 19, ALT 26, Alkaline Phosphatase 98, Troponin I 0.02, Total Protein 6.1 L, Albumin 3.3 L, Globulin 2.8, Albumin/ Globulin Ratio 1.2, CBC w Diff NO MAN DIFF REQ, RBC 2.82 L, MCV 95.2 H, MCH 31.1 H, MCHC 32.7 L, RDW 20.1 H, MPV 10.1, Gran % 65.0, Lymphocytes % 19.5 L , Monocytes % 14.8 H, Eosinophils % 0.6, Basophils % 0.1, Absolute Granulocytes 4.4, Absolute Lymphocytes 1.3, Absolute Monocytes 1.0 H, Absolute Eosinophils 0 , Absolute Basophils 0 Assessment/Plan Assessment: 87-year-old male with a past medical history of A. fib, [place], CAD status post CABG , TIA, CHF, hypertension, OA and Do's neuroma was brought to the ED from his doctor's office after he had an episode of near syncope. Assessment: 1. Near Syncope 2. Stage II Decubitus Ulcer 3. Thrombocytopenia 4. STAS 5. History of CHF 6. History of hypertension 7. History of CAD Plan: * Continue monitoring on telemetry for now. * ACS was ruled out with serial troponins and EKGs * Gentle hydration with IV NS @75ml/hr - 1 bag. He is eating and drinking well. * Hold Lasix, beta blockers, diltiazem CD and Ranolazine. * His heart rate is low. If his blood pressure and heart rate improves, rate controlling agents can be gradually be restarted but at lower doses. * Ranolazine can cause syncope, orthostatic hypotension, hypotension and bradycardia. * He has stage II and III ulcer on his right buttock. Off loading and barrier cream for now. * He has had a further drop in his Plt today. Will monitor for now. * He does have chronic anemia. Goal to keep Hb >8 as he has history of CAD. * PT/OT eval * Diet: Heart Healthy * DVT Prophylaxis: ALPS only (thrombocytopenia) * Code: Full Code Problem List: 1. Syncope Pain Ratin Pain Location: none Pain Goal: Remain pain free Pain Plan: none Tomorrow's Labs & Rationales: CBC, BEP, Mg Janeth,Manik 01/29/18 1340: Attending MD Review Statement Attending Statement Attending MD Statement: examined this patient, discuss w/resident/PA/MILK HAULER, agreed w/resident/PA/MILK HAULER, discussed with family, reviewed EMR data (avail), discussed with nursing, discussed with case mgmt, reviewed images, amended to note Attending Assessment/Plan: Patient with baseline wheelchair bound status at home fairly recent comes with near synope. Patient admitted to telemerty. Serial cardiac enzymes negative. He has intact sensations and no urinary/bowel incontinence. His knee xray and spine xray suggestive of degenerative disease. Cardiology consulted. Obtain ECHO if not done recently. C/w gentle hydration and hold diuretics/b blockers/ranexa. Obtain PT eval for his deconditioning. Monitor creatinine. Replace electrolytes. gi/dvt prophylxis full code, plan of care d/sat patinet bedside.
--- NOTE | 2018-01-29 08:47 | Cons- Wound Care ---
General Information and HPI Consulting Request Date of Consult: 01/29/18 Requested By: Kameron THOMAS,Delvis Reason for Consult: Bilateral buttock ulcers present on admission History of Present Illness: Patient is 87-year-old with underlying coronary artery disease TIA admitted with near syncope and found to have bilateral buttock ulcers present on admission patient was recently hospitalized at [facility] for deconditioning Allergies/Medications Allergies: Coded Allergies: NO KNOWN ALLERGIES (12/22/14) Home Med List: Acetaminophen 500 MG TABLET 2 TAB PO Q8 PRN PAIN (Reported) Ascorbic Acid (Vitamin C) 1,000 MG TABLET 1 TAB PO DAILY VITAMIN SUPPORT ( Reported) Atorvastatin Calcium (Lipitor) 20 MG TABLET 1 TAB PO QPM CHOLESTEROL ( Reported) Diazepam 5 MG TABLET 1 TAB PO Q6-PRN PRN SPASMS (Reported) Diltiazem HCl (Diltiazem 24HR ER) 120 MG CAP.ER.24H 1 CAP PO DAILY HEART ( Reported) Furosemide 20 MG TABLET 2 TAB PO BID Heart (Reported) Metoprolol Tartrate 25 MG TABLET 3 TAB PO BID HEART (Reported) Paroxetine HCl 20 MG TABLET 1 TAB PO DAILY ANXIETY (Reported) Polyethylene Glycol 3350 (Miralax) 17 GRAM/DOSE POWDER 17 GM PO DAILY PRN CONSTIPATION (Reported) mix with water, juice, soda, coffee or tea Potassium Chloride 20 MEQ TAB.ER.PRT 1 TAB PO DAILY SUPPLEMENT (Reported) Prednisone 2.5 MG TABLET 0.5 TAB PO DAILY STEROID (Reported) Ranolazine (Ranexa) 500 MG TAB.ER.12H 1 TAB PO BID HEART (Reported) Review of Systems Review of Systems: Noncontributory Past History Travel History Traveled to [place] past 21 day No Medical History Blood Transfusion Hx: No Neurological: TIA EENT: NONE Cardiovascular: CHF, hypertension, myocardial infarction Respiratory: pneumonia Gastrointestinal: diverticulitis Hepatic: NONE Renal: NONE Musculoskeletal: osteoarthritis Psychiatric: NONE Endocrine: NONE Blood Disorders: NONE Cancer(s): NONE 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 Home Services at Home: [facility] Smoking Status: Former Smoker ETOH Use: denies use Illicit Drug Use: denies illicit drug use Exam & Diagnostic Data Vital Signs and I&O Vital Signs Result Date Time B/P 100/62 01/29 0840 Pulse 69 01/29 0840 Pulse Ox 100 01/29 0647 O2 Delivery Nasal Cannula 01/29 0647 Temp 97.8 01/29 0647 Resp 20 01/29 0647 O2 Flow Rate 3.0L 01/29 0000 Intake & Output 01/29 0000 01/28 1600 01/28 0800 Intake Total 50 Output Total Balance 50 Intake, Oral 50 Patient 209 lb 220 lb Weight Weight Reported by Patient Measurement Method Physical Exam: Exam of the left buttock shows there to be a small abrasion with a probable pinpoint ulcer present exam of the right buttock shows there to be 3 ulcers present largest approximately 0.5 x 1 cm stage III there appears to be 2 small ulcers likely stage II approximately 0.8 x 0.8 cm there is no undermining sinus tracking or exposed bone is no periwound erythema Assessment/Plan Impression/Plan: 87-year-old multiple medical problems deconditioning admitted with near-syncope and found to have multiple ulcers of both buttocks present on admission. Recommend offloading frequent repositioning and use of barrier cream. Consult Acknowledgment - Thank you for your consult request.
[2018-01-29 10:57] LABS: ABSOLUTE BASOPHIL COUNT 0 /CUMM (0.0-0.2); ABSOLUTE EOSINOPHIL COUNT 0.1 /CUMM (0.0-0.7); ABSOLUTE GRANULOCYTE CT 3.7 /CUMM (1.4-6.5); ABSOLUTE LYMPH COUNT 1.9 /CUMM (1.2-3.4); ABSOLUTE MONOCYTE COUNT 2.2 /CUMM (0.10-0.60); BASOPHIL % 0.4 % (0.0-2.0); EOSINOPHIL % 0.8 % (0-5); GRANULOCYTE % 47.6 % (42.2-75.2); HEMATOCRIT 26.5 % (42-52); MEAN CORPUSCULAR HGB CONC 32.3 G/DL (33.0-37.0); MEAN CORPUSCULAR VOLUME 95.9 FL (80.0-94.0); MEAN PLATELET VOLUME 10.8 FL (7.4-10.4); RBC DISTRIBUTION WIDTH 19.7 % (11.5-14.5); RED BLOOD CELL CT 2.76 /CUMM (4.70-6.10); WHITE BLOOD CELL COUNT 7.9 /CUMM (4.8-10.8)
[2018-01-29 11:20] LABS: PLATELET COUNT 116 /CUMM (130-400)
--- NOTE | 2018-01-29 11:24 | Cons- Cardiology ---
General Information and HPI Consulting Request Date of Consult: 01/29/18 Requested By: Delvis Melo MD Reason for Consult: Syncope. Source of Information: patient, old records Exam Limitations: poor historian History of Present Illness: Mr. Flakito Peters is in 87-year-old male who is usually followed in [facility] by Greg Lee M.D. 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 He is essentially wheelchair bound, on home O2 (3 L), and had a recent hospitalization at [facility] and was to be evaluated for a bedsore on his right buttocks when on arising from his wheelchair experienced weakness in his legs and was assisted to the floor without head strike, other significant trauma , incontinence, etc. He does not think that he lost consciousness, but does admit to feeling "dizzy" during the episode. He also admits to chronic lower extremity edema and chronic orthopnea for which he sleeps a recliner. Allergies/Medications Allergies: Coded Allergies: NO KNOWN ALLERGIES (12/22/14) Home Med List: Acetaminophen 500 MG TABLET 2 TAB PO Q8 PRN PAIN (Reported) Ascorbic Acid (Vitamin C) 1,000 MG TABLET 1 TAB PO DAILY VITAMIN SUPPORT ( Reported) Atorvastatin Calcium (Lipitor) 20 MG TABLET 1 TAB PO QPM CHOLESTEROL ( Reported) Diazepam 5 MG TABLET 1 TAB PO Q6-PRN PRN SPASMS (Reported) Diltiazem HCl (Diltiazem 24HR ER) 120 MG CAP.ER.24H 1 CAP PO DAILY HEART ( Reported) Furosemide 20 MG TABLET 2 TAB PO BID Heart (Reported) Metoprolol Tartrate 25 MG TABLET 3 TAB PO BID HEART (Reported) Paroxetine HCl 20 MG TABLET 1 TAB PO DAILY ANXIETY (Reported) Polyethylene Glycol 3350 (Miralax) 17 GRAM/DOSE POWDER 17 GM PO DAILY PRN CONSTIPATION (Reported) mix with water, juice, soda, coffee or tea Potassium Chloride 20 MEQ TAB.ER.PRT 1 TAB PO DAILY SUPPLEMENT (Reported) Prednisone 2.5 MG TABLET 0.5 TAB PO DAILY STEROID (Reported) Ranolazine (Ranexa) 500 MG TAB.ER.12H 1 TAB PO BID HEART (Reported) Review of Systems Review of Systems: A 14 point system review was obtained was noncontributory, other than as above. 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 Home Services at Home: [facility] Smoking Status: Former Smoker ETOH Use: denies use Illicit Drug Use: denies illicit drug use Exam & Diagnostic Data Vital Signs and I&O Vital Signs Date Time Temp Pulse Resp B/P B/P Pulse O2 O2 Flow FiO2 Mean Ox Delivery Rate 01/29 0840 69 100/62 01/29 0800 100 Nasal 3.0L Cannula 01/29 0647 97.8 69 20 100/62 100 Nasal Cannula 01/29 0000 Nasal 3.0L Cannula 01/28 2326 98.1 62 18 102/60 99 Nasal 3.0L Cannula 01/28 1745 98.3 57 18 122/78 99 Nasal 3.0L Cannula 01/28 1740 100 Nasal 3.0L Cannula 01/28 1611 97.7 70 18 110/54 100 Nasal 3.0L Cannula 01/28 1354 100 Nasal 3.0L Cannula 01/28 1352 97.8 57 20 108/53 100 Nasal 3.0L Cannula 01/28 1233 97.7 62 20 122/59 97 Nasal 3.0L Cannula Intake & Output 01/29 1600 01/29 0801/29 0000 01/28 1600 01/28 0801/28 0000 Intake Total 100 50 Output Total 550 Balance -450 50 Intake, Oral 100 50 Output, Urine 550 Patient 209 lb 220 lb Weight Weight Reported by Patient Measurement Method Physical Exam: Well-developed, obese elderly male in no acute distress with nasal oxygen in place. Vital signs: See above. HEENT: Normocephalic, atraumatic, EOMI, moist mucous membranes. Neck: No JVD, no bruits. Lungs: Decreased breath sounds bilaterally. Heart: S1, S2 with grade 1-2/6 systolic murmur. No gallop or rub appreciated. Abdomen: Soft, nontender, positive bowel sounds. Extremities: Trace edema. Right upper extremity mass (? Lipoma). Labs/Onesimo Results: Laboratory Tests 01/29 01/29 01/29 01/28 1017 0637 0150 1940 Chemistry Sodium Pending Potassium Pending Chloride Pending Carbon Dioxide Pending Anion Gap Pending BUN Pending Creatinine Pending BUN/Creatinine Ratio Pending Troponin I (<0.11 ng/ml) 0.02 0.01 TSH &T3 &Free T4 Intrp (0.27 - 4.20 uIU/mL) 0.596 Hematology CBC w Diff Pending WBC Pending RBC Pending Hgb Pending Hct Pending MCV Pending MCH Pending MCHC Pending RDW Pending Plt Count Pending MPV Pending Gran % Pending Lymphocytes % Pending Monocytes % Pending Eosinophils % Pending Basophils % Pending Absolute Granulocytes Pending Absolute Lymphocytes Pending Absolute Monocytes Pending Absolute Eosinophils Pending Absolute Basophils Pending 01/28 1315 Chemistry Sodium (137 - 145 mmol/L) 140 Potassium (3.5 - 5.1 mmol/L) 3.6 Chloride (98 - 107 mmol/L) 93 L Carbon Dioxide (22 - 30 mmol/L) 35 H Anion Gap (5 - 16) 11 BUN (9 - 20 mg/dL) 24 H Creatinine (0.7 - 1.2 mg/dL) 1.5 H Estimated GFR (>60 ml/min) 44 L BUN/Creatinine Ratio (7 - 25 %) 16.0 Glucose (65 - 99 mg/dL) 114 H Calcium (8.4 - 10.2 mg/dL) 8.5 Total Bilirubin (0.2 - 1.3 mg/dL) 1.2 AST (17 - 59 U/L) 19 ALT (21 - 72 U/L) 26 Alkaline Phosphatase (< 127 U/L) 98 Troponin I (<0.11 ng/ml) 0.02 Total Protein (6.3 - 8.2 g/dL) 6.1 L Albumin (3.5 - 5.0 g/dL) 3.3 L Globulin (1.9 - 4.2 gm/dL) 2.8 Albumin/Globulin Ratio (1.1 - 2.2 %) 1.2 Hematology CBC w Diff NO MAN DIFF REQ WBC (4.8 - 10.8 /CUMM) 6.8 RBC (4.70 - 6.10 /CUMM) 2.82 L Hgb (14.0 - 18.0 G/DL) 8.8 L Hct (42 - 52 %) 26.9 L MCV (80.0 - 94.0 FL) 95.2 H MCH (27.0 - 31.0 PG) 31.1 H MCHC (33.0 - 37.0 G/DL) 32.7 L RDW (11.5 - 14.5 %) 20.1 H Plt Count (130 - 400 /CUMM) 124 L MPV (7.4 - 10.4 FL) 10.1 Gran % (42.2 - 75.2 %) 65.0 Lymphocytes % (20.5 - 51.1 %) 19.5 L Monocytes % (1.7 - 9.3 %) 14.8 H Eosinophils % (0 - 5 %) 0.6 Basophils % (0.0 - 2.0 %) 0.1 Absolute Granulocytes (1.4 - 6.5 /CUMM) 4.4 Absolute Lymphocytes (1.2 - 3.4 /CUMM) 1.3 Absolute Monocytes (0.10 - 0.60 /CUMM) 1.0 H Absolute Eosinophils (0.0 - 0.7 /CUMM) 0 Absolute Basophils (0.0 - 0.2 /CUMM) 0 Diagnostic Data EKG Results 01/29/2018: Sinus rhythm, possible left atrial abnormality, prominent anterior forces, nondiagnostic low amplitude T waves, and borderline QT prolongation. CXR Results 01/28/2018: No acute cardiopulmonary process. Assessment/Plan Assessment/Plan [id number] w/ hx 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 It is not entirely clear that the patient had a near syncopal episode. It is possible that the episode occurred secondary to marked weakness from his deconditioned status that was exacerbated by intravascular depletion, medications, etc. It is certainly reasonable observing him on telemetry while we try to exclude a cardiovascular etiology for his presentation. Recommendations: * Continue on telemetry, follow-up troponins, follow-up ECG. * Agree with gentle hydration and holding his diuretics for the short-term. * Also agree with holding his non-dihydropyridine calcium channel antagonist and beta-manav for the short-term, given his borderline blood pressure and heart rates in the 50s-60s. * Would also consider holding the anti-anginal Ranexa (ranolazine), as this can cause bradycardia, hypotension, orthostatic hypotension, syncope, dyspnea, and QT prolongation. * Replete potassium. * Check magnesium and replete as needed. * Evaluate anemia and maintained hemoglobin at or above 8.0 g/dl, given his history of CAD. * Continue DVT prophylaxis. * He had an echocardiogram in the past few months, so did not think this needs to be repeated at this time. Further recommendations will follow, Thank you. Consult Acknowledgment - Thank you for your consult request.
--- NOTE | 2018-01-29 11:48 | RADIOLOGY REPORT ---
EXAMINATION: XR KNEE, RIGHT CLINICAL INFORMATION: Pain in right knee after fall. Presumptive diagnosis: Osteoarthritis. COMPARISON: MRI of the right knee 12/17/2016. TECHNIQUE: AP, bilateral oblique, and lateral views (5 images) of the right knee. FINDINGS: There is osteopenia. There is no fracture, malalignment, or joint effusion. There is minor spurring in the patella and medial compartment. There is no significant joint space narrowing. There are extensive arterial calcifications. IMPRESSION: Minor degenerative changes in the patellofemoral and medial compartments. No significant joint space narrowing. No evidence of acute injury.
[2018-01-29 12:00] VITALS: BP 126/60
--- NOTE | 2018-01-29 12:15 | RADIOLOGY REPORT ---
EXAMINATION: XR LUMBOSACRAL SPINE CLINICAL INFORMATION: Back pain, weakness in legs. Presumptive diagnosis: Bone metastasis. COMPARISON: CT of the abdomen and pelvis 09/10/2017. TECHNIQUE: AP and lateral views of the lumbosacral spine are obtained. AP coned-down view of the lumbosacral junction is obtained. FINDINGS: Scoliosis of the spine is unchanged. There is no significant change in the superior endplate depression of the L1 vertebral body. There is no change in tzub-[id number] multilevel degenerative disc disease. There is no acute fracture or significant subluxation. There are no suspicious lytic or sclerotic bone lesions. There are extensive arterial calcifications. IMPRESSION: Stable scoliosis, superior endplate depression of L1, and [id number] multilevel degenerative disc disease. No suspicious lytic or sclerotic bone lesions.
[2018-01-29 15:00] VITALS: BP 100/56
[2018-01-29 22:45] VITALS: BP 110/58
[2018-01-30 06:47] VITALS: BP 108/58
--- NOTE | 2018-01-30 07:07 | PN- Housestaff ---
Jeni THOMAS,[facility] 01/30/18 0707: Subjective Follow-up For: Near Syncope Tele-Events Since Last Visit: NSR with HR 67-70. No overnight events. Subjective: Patient seen and examined this morning. States that when he lays his head down completely he feels dizzy but that's been going on for years. Still experiences knee pain. Review of Systems Constitutional: Reports: no symptoms. Objective Last 24 Hrs of Vital Signs/I&O Vital Signs Date Time Temp Pulse Resp B/P B/P Pulse O2 O2 Flow FiO2 Mean Ox Delivery Rate 01/30 0647 98.7 70 18 108/58 98 Nasal Cannula 01/29 2245 98.4 64 16 110/58 99 Nasal Cannula 01/29 2227 Nasal 3.0L Cannula 01/29 1600 98 Nasal 3.0L Cannula 01/29 1500 97.3 60 20 100/56 98 01/29 1200 63 126/60 01/29 0840 69 100/62 01/29 0800 100 Nasal 3.0L Cannula Intake & Output 01/30 0800 01/30 0000 01/29 1600 Intake Total 225 480 655 Output Total 756 242 2905 Balance -550 330 -595 Intake, IV 225 75 Intake, Oral 480 580 Output, Urine 950 764 [id number] Patient 218 lb Weight Weight Bed scale Measurement Method Physical Exam General Appearance: Alert, Oriented X3, Cooperative, Mild Distress Skin: No Rashes, No Breakdown Skin Temp/Moisture Exam: Warm/Dry Sepsis Skin Exam (color): Normal for Ethnicity HEENT: Atraumatic Cardiovascular: Normal S1, Normal S2, MARCE Lungs: Clear to Auscultation, Normal Air Movement Abdomen: Soft, mild diffuse tenderness Neurological: Normal Speech Extremities: No Edema Last 24 Hrs of Lab/Onesimo Results Last 24 Hrs of Labs/Mics: Laboratory Tests 01/30/18 0630: Sodium Pending, Potassium Pending, Chloride Pending, Carbon Dioxide Pending, Anion Gap Pending, BUN Pending, Creatinine Pending, BUN/Creatinine Ratio Pending , Magnesium Pending, CBC w Diff Pending, WBC Pending, RBC Pending, Hgb Pending, Hct Pending, MCV Pending, MCH Pending, MCHC Pending, RDW Pending, Plt Count Pending, MPV Pending, Gran % Pending, Lymphocytes % Pending, Monocytes % Pending , Eosinophils % Pending, Basophils % Pending, Absolute Granulocytes Pending, Absolute Lymphocytes Pending, Absolute Monocytes Pending, Absolute Eosinophils Pending, Absolute Basophils Pending 01/29/18 1017: Anion Gap 10, Estimated GFR 48 L, BUN/Creatinine Ratio 14.3, Magnesium 2.1, CBC w Diff NO MAN DIFF REQ, RBC 2.76 L, MCV 95.9 H, MCH 31.0, MCHC 32.3 L, RDW 19.7 H, MPV 10.8 H, Gran % 47.6, Lymphocytes % 23.8, Monocytes % 27.4 H, Eosinophils % 0.8, Basophils % 0.4, Absolute Granulocytes 3.7, Absolute Lymphocytes 1.9, Absolute Monocytes 2.2 H, Absolute Eosinophils 0.1, Absolute Basophils 0 Assessment/Plan Assessment: 87-year-old male with a past medical history of A. fib, [place], CAD status post CABG , TIA, CHF, hypertension, OA and Do's neuroma was brought to the ED from his doctor's office after he had an episode of near syncope. Assessment: 1. Near Syncope 2. Stage II Decubitus Ulcer 3. Chronic Thrombocytopenia 4. STAS 5. History of CHF 6. History of hypertension 7. History of CAD Plan: * Continue monitoring on telemetry for now. * Off oxygen today. He is unsure why he was started on it but saturating well on room air. * ACS was ruled out with serial troponins and EKGs on admission. * Gentle hydration with IV NS @75ml/hr - 1 bag 500ml. His blood pressure is on the lower side and he did not have breakfast. * Continue holding Lasix, beta blockers, diltiazem CD and Ranolazine. * Will gradually restart his medications. His heart rate is better than yesterday today. * He has stage II and III ulcer on his right buttock. Continue off loading and barrier cream for now. * Monitor CBC daily for thrombocytopenia. This appears to be chronic. He has admissions where his Plt count has been normal and others where it is worse than his current labs. * He does have chronic anemia. Goal to keep Hb >8 as he has history of CAD. * PT/OT eval * Diet: Heart Healthy * DVT Prophylaxis: ALPS only (thrombocytopenia) * Code: Full Code Problem List: 1. Syncope Pain Ratin Pain Location: none Pain Goal: Remain pain free Pain Plan: none Tomorrow's Labs & Rationales: CBC, BEP Akhil Fowler 01/30/18 1401: Attending MD Review Statement Attending Statement Attending MD Statement: examined this patient, discuss w/resident/PA/COMMERCIAL PRODUCER, agreed w/resident/PA/COMMERCIAL PRODUCER, discussed with family, reviewed EMR data (avail), discussed with nursing, discussed with case mgmt, reviewed images, amended to note Attending Assessment/Plan: Patient with improvement in creatinine function. He denies any new complaints. OFF oxygen today. Patient with baseline wheelchair bound status at home fairly recent comes with near synope. His knee xray and spine xray suggestive of degenerative disease. Cardiology consulted. ECHO recently with preserved EF. STAS improving C/w gentle hydration and on hold diuretics/b blockers/ranexa. Anemia and thrombocytopenia chronic. work up as o/p PT eval for his deconditioning recommend STR. Case management on board. gi/dvt prophylxis full code, plan of care d/wed patinet bedside.
[2018-01-30 07:47] LABS: ABSOLUTE BASOPHIL COUNT 0.1 /CUMM (0.0-0.2); ABSOLUTE EOSINOPHIL COUNT 0 /CUMM (0.0-0.7); ABSOLUTE GRANULOCYTE CT 3.8 /CUMM (1.4-6.5); ABSOLUTE LYMPH COUNT 1.8 /CUMM (1.2-3.4); ABSOLUTE MONOCYTE COUNT 1.7 /CUMM (0.10-0.60); EOSINOPHIL % 0.7 % (0-5); GRANULOCYTE % 51.4 % (42.2-75.2); HEMATOCRIT 27.4 % (42-52); MEAN CORPUSCULAR HGB 31.4 PG (27.0-31.0); MEAN CORPUSCULAR VOLUME 95.1 FL (80.0-94.0); MEAN PLATELET VOLUME 10.8 FL (7.4-10.4); PLATELET COUNT 113 /CUMM (130-400); RBC DISTRIBUTION WIDTH 19.7 % (11.5-14.5); RED BLOOD CELL CT 2.88 /CUMM (4.70-6.10); WHITE BLOOD CELL COUNT 7.5 /CUMM (4.8-10.8)
[2018-01-30 14:22] VITALS: BP 110/60
--- NOTE | 2018-01-30 14:32 | Patient Discharge Instructions ---
Discharge Instructions General Discharge Information You were seen/treated for: Near Syncope Special Instructions: Please follow up with your PCP and brand mgr within one week of discharge. Diet Continue normal diet: Yes Recommended Diet: Heart Healthy Activity Full Activity/No Limits: Yes Acute Coronary Syndrome Inclusion Criteria At DC or during hospital stay patient has or had the following: ACS DIAGNOSIS No Discharge Core Measures Meds if any: Prescribed or Continued at Discharge Meds if any: NOT Prescribed or Continued at Discharge Congestive Heart Failure Inclusion Criteria At DC or during hospital stay patient has or had the following: CHF DIAGNOSIS No Discharge Core Measures Meds if any: Prescribed or Continued at Discharge Meds if any: NOT Prescribed or Continued at Discharge Cerebrovascular accident Inclusion Criteria At DC or during hospital stay patient has or had the following: CVA/TIA Diagnosis No Discharge Core Measures Meds if any: Prescribed or Continued at Discharge Meds if any: NOT Prescribed or Continued at Discharge Venous thromboembolism Inclusion Criteria VTE Diagnosis No VTE Type NONE VTE Confirmed by (Test) NONE Discharge Core Measures - Per Current guidelines, there needs to be overlap - treatment for the first 5 days of Warfarin therapy. - If discharged on Warfarin prior to 5 days of - overlap therapy, the patient will need to be - assessed for post discharge needs including - *Post discharge parental anticoagulation - *Warfarin and/or parental anticoagulation education - *Follow up date to check INR post discharge At least 5 days overlap therapy as Inpatient No Meds if any: Prescribed or Continued at Discharge Note: Overlap Therapy is Warfarin and Anticoagulant Meds if any: NOT Prescribed or Continued at Discharge
--- NOTE | 2018-01-30 17:12 | PN- Cardiology ---
Subjective Subjective: Feels improved. Denies any lightheadedness, dizziness, near syncope, etc. Sinus rhythm with acceptable heart rates on telemetry without significant dysrhythmias or heart block. Objective Vital Signs and I&Os Vital Signs Date Time Temp Pulse Resp B/P B/P Pulse O2 O2 Flow FiO2 Mean Ox Delivery Rate 01/30 1422 97.9 79 18 110/60 95 Nasal Cannula 01/30 1257 Nasal 3.0L Cannula 01/30 1232 Nasal 3.0L Cannula 01/30 0800 98 Nasal 3.0L Cannula 01/30 0647 98.7 70 18 108/58 98 Nasal Cannula 01/29 2245 98.4 64 16 110/58 99 Nasal Cannula 01/29 2227 Nasal 3.0L Cannula Intake & Output 01/30 1600 01/30 0801/30 0000 01/29 1600 01/29 0801/29 0000 Intake Total 450 225 480 655 100 50 Output Total 450 664 700 4292 550 Balance 0 -550 330 -595 -450 50 Intake, IV 150 225 75 Intake, Oral 300 480 580 100 50 Output, Urine 450 403 485 6631 550 Patient 218 lb 218 lb 209 lb Weight Weight Bed scale Measurement Method Physical Exam: Well-developed, obese elderly male in no acute distress with nasal oxygen in place. Vital signs: See above. HEENT: Normocephalic, atraumatic, EOMI, moist mucous membranes. Neck: No JVD, no bruits. Lungs: Decreased breath sounds bilaterally. Heart: S1, S2 with grade 1-2/6 systolic murmur. No gallop or rub appreciated. Abdomen: Soft, nontender, positive bowel sounds. Extremities: Trace edema. Right upper extremity mass (? Lipoma). Current Medications: Current Medications Sig/Sherrill Start time Last Medication Dose Route Stop Time Status Admin Acetaminophen 500 MG Q6P PRN 01/29 1630 AC 01/29 PO 1742 Atorvastatin Calcium 20 MG QPM 01/28 2100 AC 01/29 PO 204 Diazepam 1 MG DAILY PRN 01/28 223 AC 01/29 PO 204 Diclofenac Sodium 1 WALLY 4 TIMES/DAY 01/30 09 AC 01/30 TOP 1130 Docusate Sodium 100 MG DAILY NEEDED PRN 01/30 0745 AC 01/30 PO 0941 Paroxetine HCl 20 MG DAILY 01/29 09 AC 01/30 PO 0941 Polyethylene Glycol 17 GM DAILY PRN 01/30 0745 CAN PO Polyethylene Glycol 17 GM DAILY PRN 01/29 0900 AC 01/30 PO 0941 Potassium Chloride 20 MEQ ONCE ONE 01/29 1800 DC 01/29 PO 01/29 1801 1843 Potassium Chloride 20 MEQ DAILY 01/29 0900 AC 01/30 PO 0941 Prednisone 1.25 MG DAILY 01/29 0900 AC 01/30 PO 0941 Senna 187 MG AT BEDTIME PRN 01/30 2100 AC PO Sodium Chloride 500 ML .Q6H40M 01/30 1215 AC 01/30 IV 01/30 1854 1301 Sodium Chloride 1,000 ML Q13H 01/29 1015 DC 01/29 IV 01/29 2314 1148 Results Last 48 Hrs of Labs/Mics: Laboratory Tests 01/30/18 0630: Anion Gap 7, Estimated GFR 52 L, BUN/Creatinine Ratio 15.4, Magnesium 2.1, Pro- B-Natriuretic Pept 2920 H, CBC w Diff MAN DIFF ORDERED, RBC 2.88 L, MCV 95.1 H, MCH 31.4 H, MCHC 33.0, RDW 19.7 H, MPV 10.8 H, Gran % 51.4, Lymphocytes % 24.6, Monocytes % 22.3 H, Eosinophils % 0.7, Basophils % 1.0, Absolute Granulocytes 3.8, Absolute Lymphocytes 1.8, Absolute Monocytes 1.7 H, Absolute Eosinophils 0, Absolute Basophils 0.1, Platelet Estimate DECREASED, Polychromasia 1+, Basophilic Stippling 1+, Anisocytosis 1+ 01/29/18 1017: Anion Gap 10, Estimated GFR 48 L, BUN/Creatinine Ratio 14.3, Magnesium 2.1, CBC w Diff NO MAN DIFF REQ, RBC 2.76 L, MCV 95.9 H, MCH 31.0, MCHC 32.3 L, RDW 19.7 H, MPV 10.8 H, Gran % 47.6, Lymphocytes % 23.8, Monocytes % 27.4 H, Eosinophils % 0.8, Basophils % 0.4, Absolute Granulocytes 3.7, Absolute Lymphocytes 1.9, Absolute Monocytes 2.2 H, Absolute Eosinophils 0.1, Absolute Basophils 0 01/29/18 0637: TSH &T3 &Free T4 Intrp 0.596 05/23/18 0150: Troponin I 0.02 05/22/18 1940: Troponin I 0.01 Assessment/Plan Assessment/Plan 87-y-o-w-m w/ hx 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 It is not entirely clear that the patient had a near syncopal episode. It is possible that the episode occurred secondary to marked weakness from his deconditioned status that was exacerbated by intravascular depletion, medications, etc. Recommendations: * Continue on telemetry. * Continue present cardiac regimen. * Replete potassium. * DVT prophylaxis. Continue telemetry? Yes
[2018-01-30 23:20] VITALS: BP 102/60
[2018-01-31 06:43] VITALS: BP 128/64
--- NOTE | 2018-01-31 07:01 | PN- Housestaff ---
Jeni THOMAS,[facility] 01/31/18 0701: Subjective Follow-up For: Near Syncope Tele-Events Since Last Visit: NSR with HR 82-90. No overnight events. Subjective: Seen and examined. Still complains of right knee pain with minimal relief from pain cream. Is unsure why he uses oxygen. Denies feeling short of breath while off it. Review of Systems Constitutional: Reports: no symptoms. Objective Last 24 Hrs of Vital Signs/I&O Vital Signs Date Time Temp Pulse Resp B/P B/P Pulse O2 O2 Flow FiO2 Mean Ox Delivery Rate 01/31 0643 97.8 79 18 128/64 98 Nasal Cannula 01/30 2320 97.8 85 16 102/60 100 Nasal Cannula 01/30 2151 98 Nasal 2.0L Cannula 01/30 1422 97.9 79 18 110/60 95 Nasal Cannula 01/30 1257 Nasal 3.0L Cannula 01/30 1232 Nasal 3.0L Cannula 01/30 0800 98 Nasal 3.0L Cannula Intake & Output 01/31 0800 01/31 0000 01/30 1600 Intake Total 50 150 450 Output Total 600 200 450 Balance -550 -50 0 Intake, IV 150 Intake, Oral 50 150 300 Output, Urine 600 200 450 Patient 201 lb 218 lb Weight Physical Exam General Appearance: Alert, Oriented X3, Cooperative, Mild Distress Skin: No Rashes, No Breakdown Skin Temp/Moisture Exam: Warm/Dry Sepsis Skin Exam (color): Normal for Ethnicity HEENT: Atraumatic Cardiovascular: Normal S1, Normal S2, MARCE Lungs: Normal Air Movement, bibasilar crackles Abdomen: Soft, No Tenderness Neurological: Normal Speech Extremities: No Edema Last 24 Hrs of Lab/Onesimo Results Last 24 Hrs of Labs/Mics: Laboratory Tests 01/31/18 0620: Sodium Pending, Potassium Pending, Chloride Pending, Carbon Dioxide Pending, Anion Gap Pending, BUN Pending, Creatinine Pending, BUN/Creatinine Ratio Pending , CBC w Diff Pending, WBC Pending, RBC Pending, Hgb Pending, Hct Pending, MCV Pending, MCH Pending, MCHC Pending, RDW Pending, Plt Count Pending, MPV Pending Assessment/Plan Assessment: 87-year-old male with a past medical history of A. fib, NC, CAD status post CABG , TIA, CHF, hypertension, OA and Do's neuroma was brought to the ED from his doctor's office after he had an episode of near syncope. Assessment: 1. Near Syncope 2. Stage II Decubitus Ulcer 3. Chronic Thrombocytopenia 4. STAS 5. History of CHF 6. History of hypertension 7. History of CAD Plan: * Continue monitoring on telemetry for now. * On 1L of O2 today. He is unsure why he was started on it. * Restart Lasix 20mg BID today and monitor blood pressure. * Start Metoprolol at 25mg BID and monitor heart rate. Restart Ranexa and repeat EKG tomorrow am. * He has stage II and III ulcer on his right buttock. Continue off loading and barrier cream for now. * Monitor CBC daily for thrombocytopenia. This appears to be chronic. He has admissions where his Plt count has been normal and others where it is worse than his current labs. * He does have chronic anemia. Goal to keep Hb >8 as he has history of CAD. * PT/OT eval * Diet: Regular * DVT Prophylaxis: ALPS only (thrombocytopenia) * Code: Full Code Problem List: 1. Syncope Pain Ratin Pain Location: none Pain Goal: Remain pain free Pain Plan: none Tomorrow's Labs & Rationales: CBC, BEP Katelyn Corrales MD 01/31/18 0935: Attending MD Review Statement Attending Statement Attending MD Statement: examined this patient, discuss w/resident/PA/MILITARY EXCHANGE WIRELESS MANAGER, agreed w/resident/PA/MILITARY EXCHANGE WIRELESS MANAGER, reviewed EMR data (avail), discussed with nursing, discussed with case mgmt, reviewed images Attending Assessment/Plan: Patient feels okay. His main complaint is his knee pain which is chronic. We spoke to cardiology and we are slowly going to restart his medications. He has atrial fibrillation, chronic heart failure, CAD status post CABG and had come in with presyncope and STAS. Given that his renal function has normalized and his pressure is okay, we are going to restart the Lasix at half the dose. He takes 40 twice a day as an outpatient and we are going to restart at 20 twice a day. I also spoke to Dr. Mcdonald and we are going to restart the Ranexa. We can restart the metoprolol at 25 twice a day, he takes 75 twice a day as an outpatient. At this point the Cardizem remains on hold. We are also going to follow-up with an EKG tomorrow as he had a borderline QTC and Ranexa can prolong his QTC. If he stays stable on the current medication regimen and the plan will likely be STR in a.m. with outpatient follow-up.
[2018-01-31 08:05] LABS: ABSOLUTE BASOPHIL COUNT 0 /CUMM (0.0-0.2); ABSOLUTE EOSINOPHIL COUNT 0 /CUMM (0.0-0.7); ABSOLUTE GRANULOCYTE CT 2.6 /CUMM (1.4-6.5); ABSOLUTE LYMPH COUNT 1.9 /CUMM (1.2-3.4); ABSOLUTE MONOCYTE COUNT 1.6 /CUMM (0.10-0.60); BASOPHIL % 0.6 % (0.0-2.0); EOSINOPHIL % 0.7 % (0-5); GRANULOCYTE % 42.1 % (42.2-75.2); HEMATOCRIT 25.5 % (42-52); MEAN CORPUSCULAR HGB 30.9 PG (27.0-31.0); MEAN CORPUSCULAR HGB CONC 32.3 G/DL (33.0-37.0); MEAN CORPUSCULAR VOLUME 95.8 FL (80.0-94.0); MEAN PLATELET VOLUME 11.3 FL (7.4-10.4); RBC DISTRIBUTION WIDTH 19.3 % (11.5-14.5); RED BLOOD CELL CT 2.66 /CUMM (4.70-6.10); WHITE BLOOD CELL COUNT 6.3 /CUMM (4.8-10.8)
[2018-01-31 08:46] LABS: PLATELET COUNT 115 /CUMM (130-400)
--- NOTE | 2018-01-31 10:32 | PN- Cardiology ---
Subjective Subjective: No complaints. Denies any chest discomfort, palpitations, shortness of breath, lower extremity edema, etc. Occasional supraventricular and ventricular ectopy on telemetry. Objective Vital Signs and I&Os Vital Signs Date Time Temp Pulse Resp B/P B/P Pulse O2 O2 Flow FiO2 Mean Ox Delivery Rate 01/31 1019 97 Nasal 1.0L Cannula 01/31 0941 90 128/64 01/31 0934 87 Room Air 01/31 0800 98 Nasal 2.0L Cannula 01/31 0643 97.8 79 18 128/64 98 Nasal Cannula 01/30 2320 97.8 85 16 102/60 100 Nasal Cannula 01/30 2151 98 Nasal 2.0L Cannula 01/30 1422 97.9 79 18 110/60 95 Nasal Cannula 01/30 1257 Nasal 3.0L Cannula 01/30 1232 Nasal 3.0L Cannula Intake & Output 01/31 1600 01/31 0800 01/31 0000 01/30 1600 01/30 0800 01/30 0000 Intake Total 50 150 450 225 480 Output Total 600 200 450 775 150 Balance -550 -50 0 -550 330 Intake, IV 150 225 Intake, Oral 50 150 300 480 Output, Urine 600 200 450 775 150 Patient 201 lb 218 lb 218 lb Weight Weight Bed scale Measurement Method Physical Exam: Well-developed, obese elderly male in no acute distress with nasal oxygen in place. Vital signs: See above. HEENT: Normocephalic, atraumatic, EOMI, moist mucous membranes. Neck: No JVD, no bruits. Lungs: Decreased breath sounds bilaterally. Heart: S1, S2 with grade 1-2/6 systolic murmur. No gallop or rub appreciated. Abdomen: Soft, nontender, positive bowel sounds. Extremities: Trace edema. Right upper extremity mass (? Lipoma). Current Medications: Current Medications Sig/Sherrill Start time Last Medication Dose Route Stop Time Status Admin Acetaminophen 500 MG .STK-MED ONE 01/30 2027 DC PO 01/31 2028 Acetaminophen 500 MG Q6P PRN 01/29 1630 AC 01/30 PO 2027 Atorvastatin Calcium 20 MG 1700 01/31 1700 AC PO Atorvastatin Calcium 20 MG QPM 01/28 2100 AC 01/30 PO 2027 Diazepam 5 MG TIDPRN 01/31 0900 AC PO Diazepam 1 MG DAILY PRN 052229 MS 01/30 PO 2027 Diclofenac Sodium 1 WALLY 4 TIMES/DAY 01/30 900 AC 01/31 TOP 37 Docusate Sodium 100 MG DAILY NEEDED PRN 01/30 0745 AC 01/30 PO 940 Furosemide 20 MG DAILY 01/31 900 DC PO Furosemide 20 MG BID 01/31 900 AC 01/31 PO 0936 Metoprolol Tartrate 25 MG BID 02/01 928 AC 01/31 PO 09 Paroxetine HCl 20 MG DAILY 01/29 900 AC 01/31 PO 37 Polyethylene Glycol 17 GM DAILY PRN 01/29 900 AC 01/30 PO 41 Potassium Chloride 40 MEQ 01/31 DC PO 01/31 946 Potassium Chloride 20 MEQ DAILY 01/29 900 AC 01/31 PO 36 Prednisone 1.25 MG DAILY 01/29 900 AC 01/31 PO 37 Ranolazine 500 MG Q12 02/01 928 AC PO Senna 187 MG AT BEDTIME PRN 01/30 2100 AC PO Sodium Chloride 500 ML .Q6H40M 01/30 1215 DC 01/30 IV 01/30 1854 1301 Results Last 48 Hrs of Labs/Mics: Laboratory Tests 01/31/18 0620: Anion Gap 7, Estimated GFR > 60, BUN/Creatinine Ratio 14.5, Magnesium 2.0, CBC w Diff NO MAN DIFF REQ, RBC 2.66 L, MCV 95.8 H, MCH 30.9, MCHC 32.3 L, RDW 19.3 H, MPV 11.3 H, Gran % 42.1 L, Lymphocytes % 30.4, Monocytes % 26.2 H, Eosinophils % 0.7, Basophils % 0.6, Absolute Granulocytes 2.6, Absolute Lymphocytes 1.9, Absolute Monocytes 1.6 H, Absolute Eosinophils 0, Absolute Basophils 0 01/30/18 0630: Anion Gap 7, Estimated GFR 52 L, BUN/Creatinine Ratio 15.4, Magnesium 2.1, Pro- B-Natriuretic Pept 2920 H, CBC w Diff MAN DIFF ORDERED, RBC 2.88 L, MCV 95.1 H, MCH 31.4 H, MCHC 33.0, RDW 19.7 H, MPV 10.8 H, Gran % 51.4, Lymphocytes % 24.6, Monocytes % 22.3 H, Eosinophils % 0.7, Basophils % 1.0, Absolute Granulocytes 3.8, Absolute Lymphocytes 1.8, Absolute Monocytes 1.7 H, Absolute Eosinophils 0, Absolute Basophils 0.1, Platelet Estimate DECREASED, Polychromasia 1+, Basophilic Stippling 1+, Anisocytosis 1+ Assessment/Plan Assessment/Plan 87-y-o-w-m w/ hx 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 It is not entirely clear that the patient had a near syncopal episode. It is possible that the episode occurred 2/2 weakness from his deconditioned status that was exacerbated by intravascular depletion, medications, etc. Recommendations: * Continue on telemetry. * Will restart his furosemide at half his outpatient dosage (20 mg twice daily instead of 40 mg twice daily) & the Ranexa. * If he remains hemodynamically stable will restart metoprolol at one third his outpatient dosage (25 mg twice daily instead of 75 mg twice daily). * Replete potassium. * Note drop in H&H (? Dilutional). * Maintain hemoglobin at or above 8.0 g/dl. * DVT prophylaxis. Continue telemetry? Yes
[2018-01-31 11:02] VITALS: BP 134/60
[2018-01-31 14:36] VITALS: BP 104/58
--- NOTE | 2018-01-31 14:52 | Discharge Summary ---
Visit Information Visit Dates Admission Date: 01/28/18 Discharge Date: 02/01/18 Hospital Course Course Attending Physician: Antoni THOMAS,Katelyn Putnam Primary Care Physician: Dulce THOMAS,[facility] Hospital Course: 87/M with PMHx of A.fib, PR, CAD s/p CABG X3, TIA, HFrEF, HTN, OA and Do's neuroma was brought to the ED from his doctor's office after he had an episode of near syncope. #Near Syncope: It is possible that the episode occurred 2/2 weakness from his deconditioned status that was exacerbated by intravascular depletion. He was found borderline hypotensive on admission, so Metoprolol, Cardizem, Lasix, and Ranolazine were all held. ACS was ruled out by serial troponin and EKG. No significant arrhythmias were observed during tele monitoring. After BP and HR improved the patient was started back on Lasix, metoprolol, and ranolazine. He will be discharged on metoprolol 12.5 mg twice a day and Lasix once daily orally. Cardizem was discontinued as heart rate was controlled on metoprolol only.. #Stage II Decubitus Ulcer: Was followed by wound consult. Currently stable without sign of infection. The patient will be instructed to follow with wound as an outpatient. #Chronic Thrombocytopenia: Chronic and stable, it was 115 on discharge #STAS: Cr was 1.4 on admission. improved after holding lasix and improve oral intake. On discharge creatinine was 1.1. The patient will be instructed to follow with grading clerk, PCP, and wound consult as an outpatient. Allergies: Coded Allergies: NO KNOWN ALLERGIES (12/22/14) Significant Procedures: XRY-PORTABLE CHEST XRAY FINDINGS: Median sternotomy wires appear intact. Cardiac leads overlie the chest. Lung volumes are low. Linear left basilar atelectasis/scarring. No pneumothorax. No pleural effusion. The cardiomediastinal silhouette is unchanged, with a calcified aorta. IMPRESSION: No acute pulmonary finding. XRY-KNEE COMPLETE RIGHT FINDINGS: There is osteopenia. There is no fracture, malalignment, or joint effusion. There is minor spurring in the patella and medial compartment. There is no significant joint space narrowing. There are extensive arterial calcifications. IMPRESSION: Minor degenerative changes in the patellofemoral and medial compartments. No significant joint space narrowing. No evidence of acute injury. XRY-LUMBOSACRAL SPINE AP & LAT FINDINGS: Scoliosis of the spine is unchanged. There is no significant change in the superior endplate depression of the L1 vertebral body. There is no change in [id number] multilevel degenerative disc disease. There is no acute fracture or significant subluxation. There are no suspicious lytic or sclerotic bone lesions. There are extensive arterial calcifications. IMPRESSION: Stable scoliosis, superior endplate depression of L1, and [id number] multilevel degenerative disc disease. No suspicious lytic or sclerotic bone lesions. Disposition Summary Disposition Principal Diagnosis: Near syncopal most likely secondary to intravenous depletion and medications Additional Diagnosis: Stage II Decubitus Ulcer Chronic Thrombocytopenia STAS Discharge Disposition: SNF Discharge Instructions General Discharge Information Code Status: Full Code Patient's Diet: heart healthy Patient's Activity: As tolerated Follow-Up Instructions/Appts: Please follow-up with PCP, grading clerk, wound within 1 week of discharge Medications at Discharge Discharge Medications: Stop taking the following medications: Diltiazem HCl (Diltiazem 24HR ER) 120 MG CAP.ER.24H ORAL DAILY Qty = 30 Metoprolol Tartrate (Metoprolol Tartrate) 25 MG TABLET ORAL TWICE DAILY Qty = 540 Furosemide (Furosemide) 20 MG TABLET ORAL TWICE DAILY Qty = 90 Continue taking these medications: Atorvastatin Calcium (Lipitor) 20 MG TABLET 1 Tablet ORAL Every night Comments: Last Taken:01/31/18 Time:2044 Paroxetine HCl (Paroxetine HCl) 20 MG TABLET 1 Tablet ORAL DAILY Comments: Last Taken:11/14/17 Time:1000 Diazepam (Diazepam) 5 MG TABLET 1 Tablet ORAL EVERY 6 HOURS NEEDED as needed for SPASMS Comments: Last Taken:01/31/18 Time:2050 Acetaminophen (Acetaminophen) 500 MG TABLET 2 Tablet ORAL EVERY 8 HOURS as needed for PAIN Comments: Last Taken: 02/01/18 Time: 105 Polyethylene Glycol 3350 (Miralax) 17 GRAM/DOSE POWDER 17 Gram ORAL DAILY as needed for CONSTIPATION Instructions: mix with water, juice, soda, coffee or tea Comments: Last Taken:01/30/18 Time:941 Prednisone (Prednisone) 2.5 MG TABLET 0.5 Tablet ORAL DAILY Comments: Last Taken:02/01/18 Time:0915 Ranolazine (Ranexa) 500 MG TAB.ER.12H 1 Tablet ORAL TWICE DAILY Qty = 60 Comments: Last Taken:02/01/18 Time:913 Ascorbic Acid (Vitamin C) 1,000 MG TABLET 1 Tablet ORAL DAILY Comments: NOT GIVEN IN HOSPITAL Potassium Chloride (Potassium Chloride) 20 MEQ TAB.ER.PRT 1 Tablet ORAL DAILY Qty = 90 Comments: Last Taken:02/01/18 Time:913 Start taking the following new medications: Metoprolol Tartrate (Metoprolol Tartrate) 25 MG TABLET 0.5 Tablet ORAL TWICE DAILY Qty = 30 No Refills Comments: Last Taken: 02/01/18 Time:0+928 GIVEN 25MG THIS AM Furosemide (Lasix) 20 MG TABLET 1 Tablet ORAL DAILY Qty = 30 No Refills Comments: Last Taken: 02/01/18 Time: 913 Ferrous Sulfate (Ferrous Sulfate) 325 MG (65 MG IRON) TABLET 1 Tablet ORAL DAILY Qty = 30 No Refills Comments: NOT GIVEN IN HOSPITAL Copies To: Teodora THOMAS,Ghassan Moreno; Harry THOMAS,Eyal Shea; Dulce THOMAS,[facility]
[2018-01-31] MEDS ORDERED: LASIX20 M1 PO (15:03)
[2018-01-31 22:04] VITALS: BP 116/52
[2018-02-01 06:56] VITALS: BP 112/60
--- NOTE | 2018-02-01 08:58 | PN- Housestaff ---
Iftikhar THOMAS,Rai 02/01/18 0858: Subjective Follow-up For: Near-syncope Complaints: no complaints Tele-Events Since Last Visit: Sinus rhythm, heart rate 71-76, PVC one time at midnight. Subjective: I followed up and examined the patient today. He is resting comfortably in his bed, not in distress, does not offer any complaints either. Vital signs have remained stable, blood pressure on the lower side, rate controlled sinus rhythm, no nursing issues reported to me. Patient is tentatively going to [facility] later today. Review of Systems Constitutional: Reports: no symptoms. Objective Last 24 Hrs of Vital Signs/I&O Vital Signs Date Time Temp Pulse Resp B/P B/P Pulse O2 O2 Flow FiO2 Mean Ox Delivery Rate 02/01 0656 98.5 75 18 112/60 98 Nasal 1.0L Cannula 01/31 2204 98.7 75 18 116/52 97 01/31 2054 97 Nasal 1.0L Cannula 01/31 2048 80 116/52 01/31 2045 80 116/52 01/31 1600 96 Nasal 1.0L Cannula 01/31 1436 98.6 78 18 104/58 96 Room Air 1.0L 01/31 1102 84 134/60 01/31 1059 81 134/60 01/31 1019 97 Nasal 1.0L Cannula 01/31 0941 90 128/64 01/31 0934 87 Room Air Intake & Output 02/01 1600 02/01 0800 02/01 0000 Intake Total 380 Output Total 300 550 Balance -300 -170 Intake, Oral 380 Number 0 Bowel Movements Output, Urine 300 550 Patient 93.468 kg Weight Physical Exam General Appearance: Alert, Oriented X3, Cooperative, No Acute Distress, obese Other Physical Findings: Skin: No Rashes, No Breakdown Skin Temp/Moisture Exam: Warm/Dry Sepsis Skin Exam (color): Normal for Ethnicity HEENT: Atraumatic Cardiovascular: Normal S1, Normal S2, MARCE Lungs: Normal Air Movement, bibasilar crackles Abdomen: Soft, No Tenderness Neurological: Normal Speech Extremities: No Edema Current Medications: Current Medications Sig/Sherrill Start time Last Medication Dose Route Stop Time Status Admin Acetaminophen 650 MG Q6-PRN PRN 02/01 1100 DCD 02/01 PO 105 Acetaminophen 500 MG Q6P PRN 01/29 1630 DC 01/31 PO 2052 Atorvastatin Calcium 20 MG 1700 01/31 1700 DCD 01/31 PO 1720 Atorvastatin Calcium 20 MG QPM 01/28 2100 DC 01/31 PO 2044 Diazepam 5 MG TIDPRN 01/31 900 DCD 01/31 PO 2050 Diclofenac Sodium 1 WALLY 4 TIMES/DAY 01/30 900 DCD 02/01 TOP 1324 Docusate Sodium 100 MG DAILY NEEDED PRN 01/30 745 DCD 01/30 PO 0941 Furosemide 20 MG DAILY 02/02 900 DCD PO Furosemide 20 MG BID 01/31 900 DC 02/01 PO 14 Metoprolol Tartrate 12.5 MG BID 02/01 2100 DCD PO Metoprolol Tartrate 25 MG BID 02/01 928 DC 02/01 PO 927 Paroxetine HCl 20 MG DAILY 01/29 900 DCD 02/01 PO 0914 Polyethylene Glycol 17 GM DAILY PRN 01/29 900 DCD 01/30 PO 41 Potassium Chloride 20 MEQ DAILY 01/29 900 DCD 02/01 PO 0914 Prednisone 1.25 MG DAILY 01/29 900 DCD 02/01 PO 0915 Ranolazine 500 MG Q12 02/01 928 DCD 02/01 PO 0914 Senna 187 MG AT BEDTIME PRN 01/30 2100 DCD PO Last 24 Hrs of Lab/Onesimo Results Last 24 Hrs of Labs/Mics: Laboratory Tests 02/01/18 1018: Anion Gap 7, Estimated GFR 52 L, BUN/Creatinine Ratio 11.5, Total Bilirubin 1.3 , Direct Bilirubin 0.5 H, AST 18, ALT 23, Alkaline Phosphatase 77, Lactate Dehydrogenase 384, Total Protein 5.2 L, Albumin 2.6 L, PT 12.8 H, INR 1.17, APTT 23 L, CBC w Diff MAN DIFF ORDERED, RBC 2.64 L, MCV 95.3 H, MCH 31.2 H, MCHC 32.7 L, RDW 19.6 H, MPV 11.0 H, Gran % 33.9 L, Lymphocytes % 37.2, Monocytes % 26.1 H, Eosinophils % 0.7, Basophils % 2.1 H, Absolute Granulocytes 1.7, Segmented Neutrophils 34 L, Band Neutrophils 1, Absolute Lymphocytes 1.9, Lymphocytes 44, Monocytes 19 H, Absolute Monocytes 1.3 H, Absolute Eosinophils 0, Basophils 2, Absolute Basophils 0.1, Platelet Estimate DECREASED, Hypochromic-Microcytic 2+, Poikilocytosis 2+, Basophilic Stippling , Anisocytosis 2+, Ovalocytes 1+, Retic Count 2.32 H Assessment/Plan Assessment: 87-year-old male with a past medical history of A. fib, [place], CAD status post CABG , TIA, CHF, hypertension, OA and Do's neuroma was brought to the ED from his doctor's office after he had an episode of near syncope. Assessment: 1. Near Syncope 2. Stage II Decubitus Ulcer 3. Chronic Thrombocytopenia 4. STAS 5. History of CHF 6. History of hypertension 7. History of CAD Plan: * telemetry did not reveal any obvious arrhythmia * Off O2 now. * Dose of Lasix 20mg reduced to daily and Metoprolol reduced to 12.5 mg BID. * He has stage II and III ulcer on his right buttock. Continue off loading and barrier cream for now. * Thrombocytopenia. This appears to be chronic. * He does have chronic anemia. Goal to keep Hb >8 as he has history of CAD. * PT recs to [facility] * Diet: Regular * DVT Prophylaxis: ALPS only (thrombocytopenia) * Code: Full Code * Patient discharged to [facility] today, after consulting cardiology. Per cardiology, we have made minor changes in his BP meds that can be followed in the STR. Patient's heart rate has been under control during this admission, not requiring any Cardizem thus was discontinued upon discharge. Problem List: 1. Syncope 2. Anemia 3. Thrombocytopenia Pain Ratin Pain Location: - Pain Goal: Pain 4 or less Pain Plan: prn Tomorrow's Labs & Rationales: - Arnold THOMAS,[facility] 02/01/18 1358: Attending MD Review Statement Attending Statement Attending MD Statement: examined this patient, discuss w/resident/PA/PROGRAM MANUFACTURING LEADER, agreed w/resident/PA/PROGRAM MANUFACTURING LEADER, reviewed EMR data (avail), discussed with nursing, discussed with case mgmt, reviewed images, amended to note Attending Assessment/Plan: 87-year-old male, will chair bound, with past medical history significant for hypertension, CHF, A. fib, IN, coronary artery disease status post CABG, osteoarthritis has been admitted to the floor for an episode of near syncope. The etiology was on board. Recent echo suggested preserved ejection fraction. On admission he was found to have STAS which gradually improved with gentle hydration and holding off his Diuril 6/beta blockers and Ranexa which was presumed yesterday when her STAS improved. Patient was evaluated by the physical therapy and recommended short-term rehabilitation. Patient was seen and examined on the bedside, no active issues or concerns. Vitals are stable, and patient is stable to be discharged to short-term rehabilitation.
--- NOTE | 2018-02-01 09:01 | PN- Cardiology ---
Subjective Subjective: * Patient feels well without chest discomofort, shortness of breath, lightheadedness or palpitations. * sinus rhythm * slightly worse anemia Objective Vital Signs and I&Os Vital Signs Date Time Temp Pulse Resp B/P B/P Pulse O2 O2 Flow FiO2 Mean Ox Delivery Rate 02/01 0656 98.5 75 18 112/60 98 Nasal 1.0L Cannula 01/31 2204 98.7 75 18 116/52 97 01/31 2054 97 Nasal 1.0L Cannula 01/31 2048 80 116/52 01/31 2045 80 116/52 01/31 1600 96 Nasal 1.0L Cannula 01/31 1436 98.6 78 18 104/58 96 Room Air 1.0L 01/31 1102 84 134/60 01/31 1059 81 134/60 01/31 1019 97 Nasal 1.0L Cannula 01/31 0941 90 128/64 01/31 0934 87 Room Air Intake & Output 02/01 1600 02/01 0800 02/01 0000 01/31 1600 01/31 0800 01/31 0000 Intake Total 380 720 50 150 Output Total 300 550 250 600 200 Balance -300 -170 470 -550 -50 Intake, Oral 380 720 50 150 Number 0 0 Bowel Movements Output, Urine 300 550 250 600 200 Patient 206 lb 201 lb Weight Physical Exam: General: WD/WN male in NAD; alert and oriented x 3 HEENT: NC/AT, PERRL, EOMI, decreased hearing Neck: No JVD, no bruits. Lungs: no crackles or wheezing Heart: RRR with 1/6 systolic murmur Abdomen: Soft, nontender, positive bowel sounds Extremities: Trace edema Assessment/Plan Assessment/Plan * 87 year old male admitted following a syncopal episode. No significant dysrhythmias noted and hemodynamically stable. Overmedication is a possibility although volume loss is suspected considering his low and falling H/H. Restart Lasix at 20mg daily and Metoprolol 12.5mg BID. * Continue Ranexa as previously prescribed. * Would pursue an anemia workup including a reticulocyte count and guaiac of all stools. Follow H/H. Continue telemetry? Yes
[2018-02-01 11:04] LABS: ABSOLUTE BASOPHIL COUNT 0.1 /CUMM (0.0-0.2); ABSOLUTE EOSINOPHIL COUNT 0 /CUMM (0.0-0.7); ABSOLUTE GRANULOCYTE CT 1.7 /CUMM (1.4-6.5); ABSOLUTE LYMPH COUNT 1.9 /CUMM (1.2-3.4); ABSOLUTE MONOCYTE COUNT 1.3 /CUMM (0.10-0.60); BASOPHIL % 2.1 % (0.0-2.0); EOSINOPHIL % 0.7 % (0-5); GRANULOCYTE % 33.9 % (42.2-75.2); HEMATOCRIT 25.1 % (42-52); MEAN CORPUSCULAR HGB 31.2 PG (27.0-31.0); MEAN CORPUSCULAR HGB CONC 32.7 G/DL (33.0-37.0); MEAN CORPUSCULAR VOLUME 95.3 FL (80.0-94.0); PLATELET COUNT 124 /CUMM (130-400); RBC DISTRIBUTION WIDTH 19.6 % (11.5-14.5); RED BLOOD CELL CT 2.64 /CUMM (4.70-6.10); WHITE BLOOD CELL COUNT 5.1 /CUMM (4.8-10.8)
[2018-02-01 11:11] LABS: PT 12.8 SEC (9.4-12.5); PTT 23 SEC (25-37)
[2018-02-01] MEDS ORDERED: FERROUS SULFAT325 M3 PO (12:04)
[2018-02-01] MEDS ORDERED: METOPROLOL TART25 M1 PO (12:04)
[2018-02-01 14:25] VITALS: BP 108/64
[2018-02-01 14:54] VITALS: BP 108/64
== END 2018-02-01 16:25 | DRG 312 ==
LOC: ERH 12:27 → 1NO 15:53 → ERHI 15:53 → ENRESERV 16:15 → ENTRNSPT 17:07 → EDTRNSPTSTS 17:15 → EDTRNSPT 17:15 → CMPTRNSPT 17:32 → 1NO 17:33 → ENPENDDIS 02-01 13:35 → 1NO 02-01 16:25
PROVIDERS: Emergency Medicine; Internal Medicine; Student in an Organized Health Care Education/Training Program
DX: R55 Syncope and collapse (principal); L89.312 Pressure ulcer of right buttock, stage 2; L89.313 Pressure ulcer of right buttock, stage 3; I11.0 Hypertensive heart disease with heart failure; L89.329 Pressure ulcer of left buttock, unspecified stage; N17.9 Acute kidney failure, unspecified; I50.22 Chronic systolic (congestive) heart failure; D69.6 Thrombocytopenia, unspecified; I48.0 Paroxysmal atrial fibrillation; E66.9 Obesity, unspecified; Z68.33 Body mass index [BMI] 33.0-33.9, adult; I25.2 Old myocardial infarction; I25.10 Atherosclerotic heart disease of native coronary artery without angina pectoris; Z95.1 Presence of aortocoronary bypass graft; M19.90 Unspecified osteoarthritis, unspecified site; Z86.73 Personal history of transient ischemic attack (TIA), and cerebral infarction without residual deficits
CPT/HCPCS: 1NSP; 36415; 36592; 71045; 72100; 73562-RT; 82436; 93005; 93010; 97110-GO; 97161-GP; 97530-GO; J7040